=== PATIENT | female | born 1955 | race Caucasian/White ===

== ENCOUNTER 2022-10-31 09:06 | Emergency (ER) | payer MEDICARE, SELFPAY ==
--- NOTE | ~2022-10-31 | XR_ITS ---
Clinical Indication: Shortness of breath PA and lateral views of the chest: Comparison: 01/17/2010 Findings: Bidni-pu-etxgrxrl bilateral pleural effusions are present with probable mild bibasilar pulm onary edema/atelectasis.. Cardiomediastinal silhouette is within normal limits. Bones and soft tissu es are unremarkable. Impression: [id number] bilateral pleural effusions with mild bibasilar pulmonary edema/atelectasis. Reviewed, dictated and finalized at location M. NK ARCHITECT Impression: Qaosc-[id number] bilateral pleural effusions with mild bibasilar pulmonary ge[place] ma/atelectasis.
--- NOTE | 2022-10-31 09:16 | ED.URI ---
HPI - URI/Sore Throat General Chief Complaint: Upper Respiratory Infection Stated Complaint: sob Time Seen by Provider: 10/31/22 09:30 Source: patient and family Mode of arrival: ambulatory Limitations: no limitations History of Present Illness HPI Narrative: Ms. Roberts is a 67-year-old female patient presenting to clinic today with complaints of increased shortness of breath,cough, and swelling bilateral lower extremities x1 week. She denies any chest pain. Does have history of hyperthyroidism. No history of congestive heart failure or AFib. MD elicited complaint: sore throat and nasal congestion Related Data Home Medications Medication Instructions Recorded Confirmed amoxicillin 875 mg tablet 875 mg PO DIRECTED 10/31/22 10/31/22 Allergies Allergy/AdvReac Type Severity Reaction Status Date / Time estrogens, conjugated Allergy Unknown Other Verified 10/31/22 09:13 Review of Systems Review of Systems: Pertinent positives per HPI. Patient denies any fever, chills, rash, headache, visual changes, dizziness, cough, shortness of breath, chest pain, palpitations, nausea, vomiting, diarrhea, constipation, abdominal pain, or any urinary issues. PMFSH Past Medical History Medical History Essential hypertension Hyperthyroidism Type 2 diabetes mellitus with hyperglycemia Surgical History Surgical History No pertinent past surgical history Family History Family History (Updated 01/23/18 @ 14:55 by DOCTOR UNKNOWN) Father Hypertension Family history of malignant neoplasm Mother Hypertension Cerebrovascular accident Grandparent Family history of cardiovascular disease Other Family history of atrial fibrillation Family history of thyroid disease Social History Social History Smoking status: Never smoker Second hand tobacco smoke exposure: No Alcohol intake: never Comments At the time of my signature, I reviewed and agree with the nursing past medical, surgical, social, and family history. There is no relevant family history pertinent to the patient complaint. Exam Narrative: General: Well-developed, well nourished, ill-appearing, essential tremors Head: Normocephalic, atraumatic Eyes: Pupils equally round and reactive to light bilaterally, EOM intact, sclera and conjunctive clear, no discharge, lids normal Ears: TMs intact and clear, ear canals clear, no drainage, grossly hearing normal. Nose: Nares patent, clear nasal discharge, no inflammation, no sinus tenderness. Mouth: Oral pharynx without lesions or masses, good dentition, MMM. Neck: Supple, trachea midline, no enlargement of anterior or posterior cervical nodes, no thyroid masses or goiter palpable. Cardio: Regular rate and rhythm, s1 and s2 normal, no murmur appreciated. Resp: upper lung higuera are clear mid and lower lobes are diminished, no rhonchi, rales, wheezing or rubs Course Course Emergency Course: Portions of this record may have been created with voice recognition software. Level of Care: Express Care Visit Vital Signs Vital signs: Vital Signs Temperature 37.3 C 10/31/22 09:27 Pulse Rate 92 10/31/22 09:27 Respiratory Rate 20 10/31/22 09:27 Blood Pressure 170/116 H 10/31/22 09:27 Pulse Oximetry 100 10/31/22 09:27 Oxygen Delivery Room Air 10/31/22 09:27 Temperature 37.3 C 10/31/22 09:27 Pulse Rate 92 10/31/22 09:27 Respiratory Rate 20 10/31/22 09:27 Blood Pressure 160/98 H 10/31/22 10:15 Pulse Oximetry 100 10/31/22 09:27 Oxygen Delivery Room Air 10/31/22 09:27 Vital signs reviewed Transfer Transfered to: [facility] Transportation: [facility] Transfer rationale: acute new onset congestive heart failure and AFib with RVR Accepting physician: Yola Transfer comments: TRANSF
[2022-10-31 09:27] VITALS: BP 170/116; PULSE 92; RESP 20; TEMP 37.3; O2SAT 100
[2022-10-31 10:15] VITALS: BP 160/98
--- NOTE | 2022-10-31 10:42 | ECG_ITS ---
Measurements Intervals [place] Rate: 164 P: [place]: 0 QRS: -76 QRSD: 93 T: 93 QT: 258 QTc: 427 Interpretive Statements ATRIAL FIBRILLATION WITH RAPID VENTRICULAR RESPONSE MINIMAL VOLTAGE CRITERIA FOR LVH, CONSIDER NORMAL VARIANT [MEETS CRITERIA IN ONE OF: R(aVL), S(V1), R(V5), R(V5/V6)+S(V1)] SEPTAL MYOCARDIAL INFARCTION , OF INDETERMINATE AGE [40+ ms Q WAVE IN V1/V2] COMPARED TO ECG 10/31/2022 10:30:42 NO SIGNIFICANT CHANGES Electronically Signed On 10-31-2022 18:03:45 POLLS OR SURVEYS INTERVIEWER by Mesfin Cruz M.D.
== END 2022-10-31 10:46 | disposition short-term general hospital (02) ==
LOC: EXPCOLL 09:12
PROVIDERS: Emergency Provider Nurse Practitioner Family
DX: I48.91 Unspecified atrial fibrillation (principal); I50.9 Heart failure, unspecified; Z20.822 Contact with and (suspected) exposure to COVID-19; I11.0 Hypertensive heart disease with heart failure; E05.90 Thyrotoxicosis, unspecified without thyrotoxic crisis or storm; E11.9 Type 2 diabetes mellitus without complications
CPT/HCPCS: 71046; 87426; 93005; 99215; C9803; G0463

== ENCOUNTER 2022-10-31 11:03 | Inpatient (IN) | payer MEDICARE, SELFPAY ==
[2022-10-31] VITALS (20 sets, daily range): BP systolic 113–178; BP diastolic 80–108; PULSE 110–170; RESP 16–27; TEMP 36.9; O2SAT 95–99
--- NOTE | ~2022-10-31 | US_ITS ---
EXAMINATION: US venous doppler [facility] DATE: 11/01/2022 10:12 INDICATION: Lower limb edema. TECHNIQUE: Grayscale ultrasound images without and with compression and Doppler ultrasound images of the bilateral lower extremity veins were obtained. COMPARISON: None. FINDINGS: The visualized portions of right common femoral vein, profunda (deep) femoral vein, femoral vein, pop liteal vein, posterior tibial veins, and greater saphenous vein outflow are patent. The visualized portions of left common femoral vein, profunda femoral vein, femoral vein, popliteal v ein, posterior tibial veins, and greater saphenous vein outflow are patent. IMPRESSION: 1. No deep venous thrombosis. Reviewed, dictated and finalized at location A. PROJECTOR OPERATOR
--- NOTE | ~2022-10-31 | CT_ITS ---
EXAMINATION: CTA chest PE protocol DATE: 10/31/2022 16:09 INDICATION: Shortness of breath, atrial fibrillation TECHNIQUE: Computed tomography angiography (CTA) of the chest was performed with 100 mL Omnipaque-350 intravenous contrast timed to evaluate the pulmonary arteries. Coronal maximum intensity projection 3D-reconstructions were created by the technologist. The dose-length product (DLP) was 130.33 mGy-cm. Automated exposure control and iterative reconstruction technique were employed. COMPARISON: None. FINDINGS: The pulmonary arteries are well-opacified. No pulmonary embolism is identified. Cardiomegal y is noted. There are small to moderate-sized right and small left pleural effusions. There is mild p assive dependent atelectasis. There are no pathologically enlarged thoracic lymph nodes. There is mul tinodular goiter of the thyroid. There is moderate thoracic spondylosis. IMPRESSION: 1. No pulmonary embolism identified. 2. Small to moderate size right and small left pleural effusions with passive dependent atelectasis. Reviewed, dictated and finalized at location F. OF IT IMPRESSION: 1. No pulmonary embolism identified. 2. Small to moderate size right and small left pleural effusions with passive d ependent atelectasis.
--- NOTE | ~2022-10-31 | US_ITS ---
EXAMINATION: US abdomen limited DATE: 11/01/2022 10:03 INDICATION: Abnormal liver function tests. TECHNIQUE: Multiple grayscale and Doppler ultrasound images of the abdomen were obtained. COMPARISON: CT abdomen 12/26/2017, chest CT 10/31/2022 FINDINGS: The visualized portions of the head and body of the pancreas are normal. The liver is mai l without focal lesion. There is normal flow in main portal vein. The gallbladder is normal in size. No gallstones or gallbladder wall thickening. There was no sonographic Olmos sign. The common duct i s normal and measures 1 mm. There is a right pleural effusion. IMPRESSION: 1. No etiology for abnormal liver function tests. 2. Right pleural effusion. Reviewed, dictated and finalized at location A. TER SEISMOGRAPH
--- NOTE | ~2022-10-31 | XR_ITS ---
Clinical Indication: Dyspnea AP and lateral views of the chest: Comparison: 10/31/2022 at 9:59 AM Findings: Bilateral pleural effusions are unchanged. Cardiomediastinal silhouette is within normal l imits. Bones and soft tissues are unremarkable. Impression: Stable bilateral pleural effusions, with probable bibasilar atelectasis. Reviewed, dictated and finalized at location . GER METROLOGY Impression: Stable bilateral pleural effusions, with probable bibasilar atelectasis.
--- NOTE | ~2022-10-31 | XR_ITS ---
EXAMINATION: XR chest 1V portable Exam Date/Time: 11/03/2022 10:40 LINK WIRE FABRIC MACHINE OPERATOR HISTORY: sob Comparison: 10/31/2022. RESULT: Lines, tubes, and devices: None. Lungs and pleura: Increased consolidation in the bilateral lower lungs. Apparent air bronchograms in the right lower lobe. Increased right and stable left costophrenic angle blunting. Cardiomediastinal silhouette: Stable. Other: No acute osseous or upper abdominal finding. IMPRESSION: Increasing bibasilar atelectasis/consolidation. Possible right lower lobe air bronchograms would be m ore consistent with the consolidation of infection rather than atelectasis. Increasing but still smal l right pleural effusion. Stable small left pleural effusion. Reviewed, dictated and finalized at location K. WIRE FABRIC MACHINE OPERATOR IMPRESSION: Increasing bibasilar atelectasis/consolidation. Possible right lower lobe air b ronchograms would be more consistent with the consolidation of infection rather than atelectasis. Increasing but still small right pleural effusion. Stable sm all left pleural effusion.
--- NOTE | ~2022-10-31 | XR_ITS ---
EXAMINATION: XR chest 1V portable DATE: 11/04/2022 13:25 INDICATION: Shortness of breath TECHNIQUE: frontal view of the chest was obtained. COMPARISON: Chest radiograph dated 11/03/2022 FINDINGS: Again seen are opacities in the bilateral lower lung zones consistent with small bilateral pleural ef fusions and associated basilar atelectasis and/or pneumonia. The right pleural effusion appears sligh tly increased in size since the prior study. No pneumothorax. Cardiomegaly. Mild thoracolumbar dextro curvature with mild spondylosis. IMPRESSION: 1. Small bilateral pleural effusions with interval increase in the right and associated bibasilar ate lectasis and/or pneumonia. Reviewed, dictated and finalized at location A. MS EXAMINER IMPRESSION: 1. Small bilateral pleural effusions with interval increase in the right and as sociated bibasilar atelectasis and/or pneumonia.
--- NOTE | ~2022-10-31 | US_ITS ---
EXAMINATION: US thyroid DATE: 11/03/2022 14:18 INDICATION: Hyperthyroidism TECHNIQUE: Multiple ultrasound images of the thyroid were obtained. COMPARISON: None. FINDINGS: The right thyroid lobe measures 3.4 x 2.2 x 1.6 cm. The left thyroid lobe measures 3.2 x 1.9 x 1.7 c m. There are multiple bilateral hypoechoic solid almost completely solid thyroid nodules which are al l wider than tall with smooth margins and with multiple internal punctate echogenic foci (TI-RADS 5, highly suspicious , FNA if >=1.0 cm, annual followup is >0.5 cm. These include a 1.7 cm nodule in the right thyroid lobe, a 2.1 cm nodule at the left side of the thyroid isthmus and a 2.6 cm nodule in t he left thyroid lobe. Of note several of the echogenic foci which are either slightly larger or locat ed within the cystic components of the lesion demonstrate comet tailing suggestive of inspissated col loid. IMPRESSION: 1. Multinodular goiter. Given the nearly identical appearance to the nodules would recommend ultrasou nd-guided biopsy of the largest 2.6 cm nodule in the left thyroid lobe. Reviewed, dictated and finalized at location A. Y STAINER IMPRESSION: 1. Multinodular goiter. Given the nearly identical appearance to the nodules wo uld recommend ultrasound-guided biopsy of the largest 2.6 cm nodule in the left thyroid lobe.
--- NOTE | 2022-10-31 13:28 | ECG_ITS ---
Measurements Intervals [place] Rate: 168 P: [place]: 0 QRS: -35 QRSD: 90 T: 64 QT: 248 QTc: 415 Interpretive Statements ATRIAL FIBRILLATION WITH RAPID VENTRICULAR RESPONSE WITH ABERRANT CONDUCTION OR VENTRICULAR PREMATURE COMPLEXES MARKED LEFT AXIS DEVIATION [QRS AXIS < -30] SEPTAL MYOCARDIAL INFARCTION [40+ ms Q WAVE IN V1/V2], PROBABLY OLD NO PREVIOUS ECG AVAILABLE FOR COMPARISON Electronically Signed On 10-31-2022 17:57:19 SPORTING GOODS SALES ASSOCIATE by Mesfin Cruz M.D.
[2022-10-31 14:28] LABS: Hematocrit 49.8 % (37.0-47.0); Hemoglobin 16.1 g/dL (12.0-15.0); Mean Corpuscular HGB Conc 32.3 g/dl (32-36); Mean Corpuscular Volume 86.6 fl (80-100); Platelet Count Result 373 k/mm3 (150-375); Red Blood Count 5.75 M/mm3 (4.2-5.4); Red Cell Distribution Width 13.6 % (11.5-14.5); White Blood Count 12.1 K/mm3 (4.5-10.0)
[2022-10-31 14:29] LABS: Basophils Percent Auto 0.3 % (0.2-1.2); Eosinophils Percent Auto 0.1 % (0-4.4); Immature Granulocyte Absolute 0.07 K/mm3 (0.00-0.031); Immature Granulocyte Percent A 0.6 % (0-0.5); Lymphocytes Absolute Auto 1.96 K/mm3 (0.9-3.2); Lymphocytes Percent Auto 16.2 % (18.3-44.2); Mean Platelet Volume 10.3 fl (7.4-10.4); Monocytes Absolute Auto 0.6 K/mm3 (0.1-0.6); Monocytes Percent Auto 4.6 % (2.6-8.5); Neutrophils Absolute Auto 9.5 K/mm3 (1.3-6.7); Neutrophils Percent Auto 78.2 % (45.5-73.1)
--- NOTE | 2022-10-31 14:30 | ED.SOB ---
HPI - SOB/Dyspnea General Chief Complaint: Shortness of Breath/Dyspnea <Svetlana Peguero PA-C - Last Filed: 10/31/22 18:12> Stated Complaint: sob <NASIMA Beck Last Filed: 10/31/22 18:12> Time Seen by Provider: 10/31/22 14:29 <NASIMA Beck Last Filed: 10/31/22 18:12> Source: patient and old records reviewed <NASIMA Beck Last Filed: 10/31/22 18:12> Mode of arrival: ambulatory <NASIMA Beck Last Filed: 10/31/22 18:12> Limitations: no limitations <NASIMA Beck Last Filed: 10/31/22 18:12> History of Present Illness HPI Narrative: Patient is a 67 y/o female who presents to the ED via EMS from with report of SOB. Patient reports having worsening shortness of breath, aggravated with exertion, over the last 1 week. She has also had increased swelling in her lower extremities, which is new for her. She went to an urgent care today where she was thought to be in CHF based on chest x-ray showing pulmonary edema. She was also found to be in A. fib with RVR with heart rate in the 160s. EMS was then called to bring the patient here. Patient denies previous history of CHF or A. fib. She denies any chest pain currently or over the last week. Denies any palpitations, abdominal pain, nausea, vomiting, recent cough or cold symptoms, BLE pain. Patient does not currently take any daily medications. <NASIMA Beck Last Filed: 10/31/22 18:12> Related Data Home Medications: Home Medications Medication Instructions Recorded Confirmed amoxicillin 875 mg tablet 875 mg PO DIRECTED 10/31/22 10/31/22 <NASIMA Beck Last Filed: 10/31/22 18:12> Allergies/Adverse Reactions: Allergies Allergy/AdvReac Type Severity Reaction Status Date / Time estrogens, conjugated Allergy Unknown Other Verified 10/31/22 09:13 <Svetlana Peguero PA-C - Last Filed: 10/31/22 18:12> Review of Systems Review of Systems: CONSTITUTIONAL: Denies fever, chills, or sweats. ENT: Denies rhinorrhea, congestion, sore throat. CARDIOVASCULAR: Reports BLE edema. Denies chest pain, palpitations. RESPIRATORY: Reports SOB, OROPEZA. Denies cough. GASTROINTESTINAL: Denies abdominal pain, nausea, vomiting. MUSCULOSKELETAL: Denies BLE pain. NEUROLOGIC: Denies headache, numbness, or weakness. <Svetlana Peguero PA-C - Last Filed: 10/31/22 18:12> All systems reviewed & are unremarkable except as noted in HPI and below <Svetlana Peguero PA-C - Last Filed: 10/31/22 18:12> [facility] Past Medical History Medical History: Medical History Essential hypertension Hyperthyroidism Type 2 diabetes mellitus with hyperglycemia <Svetlana Peguero PA-C - Last Filed: 10/31/22 18:12> Surgical History Surgical History: Surgical History No pertinent past surgical history <Svetlana Peguero PA-C - Last Filed: 10/31/22 18:12> Family History Family History: Family History (Updated 01/23/18 @ 14:55 by DOCTOR UNKNOWN) Father Hypertension Family history of malignant neoplasm Mother Hypertension Cerebrovascular accident Grandparent Family history of cardiovascular disease Other Family history of atrial fibrillation Family history of thyroid disease <Svetlana Peguero PA-C - Last Filed: 10/31/22 18:12> Social History Social History: Social History Smoking status: Never smoker Second hand tobacco smoke exposure: No Alcohol intake: never <Svetlana Peguero PA-C - Last Filed: 10/31/22 18:12> Exam Narrative: GENERAL: Mildly ill appearing, thin, non-toxic, in no acute distress. HEAD: Normocephalic, atraumatic. NECK: Supple. No adenopathy, no masses. RESPIRATORY: Airway patent, resp
[2022-10-31 14:39] LABS: Alanine Aminotransferase 70 U/L (6-35); Albumin Level 4.2 g/dL (3.5-5.1); Alkaline Phosphatase 311 U/L (38-126); Anion Gap 16 mmol/L (8-16); Aspartate Amino Transferase 46 U/L (14-36); Bilirubin,Total 0.9 mg/dL (0.2-1.3); Blood Urea Nitrogen 13 mg/dL (7-17); Calcium 9.2 mg/dL (8.4-10.2); Carbon Dioxide 19 mmol/L (22-30); Chloride 95 mmol/L (98-107); Estimated CRCL calculation 103 ml/min; Estimated Glomerular Filt Rate > 60; Glucose 397 mg/dL (65-110); Potassium 3.5 mmol/L (3.4-5.0); Sodium 130 mmol/L (137-145)
[2022-10-31] MEDS: METOPROLOL TARTRATE INJ 5 MG/5 ML VIAL IV PUSH (14:57)
[2022-10-31 15:36] LABS: Prothrombin Time 12.8 Seconds (11.1-14.7)
[2022-10-31 15:36] LABS: Influenza A QL RT-PCR Negative (Negative); Influenza B QL RT-PCR Negative (Negative); SARS-CoV-2 RNA PCR Negative
[2022-10-31 15:37] LABS: NT Pro B Type Natriuretic Pept 676 pg/mL (5-100); Partial Thromboplastin Time 27.2 SECONDS (22.3-36.8); Troponin I 0.031 ng/mL (0.000-0.034)
[2022-10-31 15:41] LABS: Add Urine Microscopic? YES; Appearance Urine Clear (Clear); Bilirubin Urine Negative (Negative); Blood Urine Negative (Negative); Color Urine Light Yellow (Yellow); Glucose Urine UA 3+ mg/dL (Negative); Ketones Urine 3+ mg/dL (Negative); Leukocyte Esterase Ur Negative LEU/UL (Negative); Nitrate Urine Negative (Negative); Protein Urine 1+ mg/dL (Negative); Specific Grav Ur 1.015 (1.001-1.035); Urobilinogen Urine 0.2 mg/dL (<2.0)
[2022-10-31] MEDS: dilTIAZem HCl INJ 25 MG/5 ML VIAL 10 MG IV PUSH (15:44)
--- NOTE | 2022-10-31 15:48 | ECG_ITS ---
Measurements Intervals [place] Rate: 79 P: [place]: 0 QRS: -35 QRSD: 110 T: 55 QT: 376 QTc: 432 Interpretive Statements ATRIAL FIBRILLATION MARKED LEFT AXIS DEVIATION [QRS AXIS < -30] POSSIBLE ANTERIOR MYOCARDIAL INFARCTION , OF INDETERMINATE AGE [30 ms Q WAVE IN V3/V4, OR R < 0.2 mV IN V4] COMPARED TO ECG 10/31/2022 14:12:33 HEART RATE HAS DECREASED Electronically Signed On 10-31-2022 18:14:51 TRANSMISSION SUPERVISOR by Mesfin Cruz M.D.
[2022-10-31 15:52] LABS: Bacteria Urine Trace /hpf; RBC Urine 0-2 /hpf (0-2); Squamous Epithelial Cell Urine Rare /hpf (Few); WBC Urine 0-3 /hpf
[2022-10-31] MEDS: dilTIAZem 100 MG/100 ML 100 MG/100 ML BAG IV CONT (16:57)
[2022-10-31 18:06] LABS: Troponin I 0.036 ng/mL (0.000-0.034)
[2022-10-31] MEDS: FUROSEMIDE INJ 40 MG/4 ML VIAL IV PUSH (18:18)
[2022-10-31 18:31] LABS: Hemoglobin A1C > 14.0 % (<5.7)
--- NOTE | 2022-10-31 20:16 | PM.IMHP ---
H&P: HPI History of Present Illness Date/Time: 10/31/22 20:16 Chief Complaint: Shortness of breath Narrative: This is a 67-year-old female patient who went to urgent care today because of shortness of breath. It is aggravated with exertion and this has been occurring over the last week. She also had increased swelling to her lower extremities. Which is new for her. The patient was sent to the urgent care today when she thought it to be based on her chest x-ray showing pulmonary edema. The patient was found to be in AFib with RVR with heart rate in the 160s. EMS was then called the patient was brought here to the emergency room. She denies any history of CHF for AFib. The patient denied any chest pain. She has not had any palpitations abdominal pain nausea vomiting. The patient does not take any medications. The patient does have a history of having hyperthyroidism but is no longer taking her medication. Chest CTA was read as no pulmonary embolism identified. Small to moderate size right and small left pleural effusion with passive dependent atelectasis. The patient was found to be in AFib with RVR. The patient was given metoprolol IV and then Cardizem IV and IV Lasix. Patient's hemoglobin A1c was found to be greater than 14. Her blood sugars 397. Liver enzymes are elevated. Troponin 0.03 , 0.036, and 0.033. Then she was started on a Cardizem drip. The patient is being admitted to observation status on the date of service of 10/31/2022. Review of Systems Review of Systems: See HPI All systems reviewed & are unremarkable except as noted in HPI and below Constitutional: Constitutional: Reports as per HPI and Reports no additional constitutional complaints Eyes: Eyes: Reports as per HPI and Reports no additional eye complaints ENT: Reports system reviewed and no additional complaints, except as documented and Reports Normal hearing present Cardiovascular: Cardiovascular: Reports no additional cardiovascular complaints Respiratory: Respiratory: Reports no additional respiratory complaints and Reports no additional respiratory complaints Gastrointestinal: Gastrointestinal: Reports as per HPI and Reports no additional gastrointestinal complaints Musculoskeletal: Musculoskeletal: Reports no additional musculoskeletal complaints Integumentary/Breasts: Skin/Breast: Reports system reviewed and no additional complaints, except as docu and Reports as per HPI Neurologic: Reports system reviewed and no additional complaints, except as documented, Reports as per HPI and Reports Normal hearing present Psychiatric: Psychiatric: Reports no additional psychiatric complaints and Reports as per HPI Endocrine: Endocrine: Reports no additional endocrine complaints Hematologic/Lymphatic: Hematologic/Lymphatic: Reports no additional hematologic/lymphatic complaints Allergic/Immunologic: Allergic/Immunologic: Reports no additional allergic/immunologic complaints [facility] Past Medical History Medical History (Updated 10/31/22 @ 19:17 by Ascencion Cotton APRN) Essential hypertension Hyperthyroidism Type 2 diabetes mellitus with hyperglycemia Surgical History Surgical History (Updated 10/31/22 @ 23:36 by Zuleyka Cooley NP) History of dental surgery History of tonsillectomy Family History Family History Father Hypertension Family history of malignant neoplasm Mother Hypertension Cerebrovascular accident Grandparent Family history of cardiovascular disease Other Family history of atrial fibrillation Family history of thyroid disease Social History Social History (Updated 10/31/22 @ 23:33 by Zuleyka Cooley NP) Social History: The patient lives with her and they have one child. 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 She is a lifelong nonsmoker. She denies any alcohol marijuana or illicit drugs. Her is a durable power aligner for healthcare. Code s
[2022-10-31 23:00] LABS: Troponin I 0.033 ng/mL (0.000-0.034)
[2022-11-01] VITALS (27 sets, daily range): BP systolic 73–158; BP diastolic 58–95; PULSE 81–138; RESP 16–35; TEMP 36.1–36.7; O2SAT 95–100; BMI 18.1
[2022-11-01] MEDS: ENOXAPARIN 60 MG/0.6 ML SYRINGE 50 MG SUB-Q ×2 (00:33→09:49)
--- NOTE | 2022-11-01 02:26 | ADMGEN ---
This patient, Zeferino Roberts, was admitted to IMU Room 209-01. Patient/family oriented to hospital policies and general routines including ID bracelet, bed and alarms, visiting hours, pain management, procedures, bathroom and other care routines, personal items, smoking policy, room service/diet, and visiting hours. Information on how to activate the Rapid Response Team has been discussed. Patient/Family are encouraged to report perceived risks to care and to ask questions if they do not understand what they are told or what they should do.
[2022-11-01 02:57] LABS: Hepatitis B Surface Antigen Negative (Negative)
[2022-11-01 03:03] LABS: HAV RESULT Negative (Negative); Hepatitis B Core IgM Result Negative (Negative)
[2022-11-01 03:15] LABS: Hepatitis C Virus Antibody Negative (Negative)
[2022-11-01] MEDS: dilTIAZem HCl INJ 25 MG/5 ML VIAL 10 MG IV PUSH (04:18)
[2022-11-01] MEDS: dilTIAZem 100 MG/100 ML 100 MG/100 ML BAG 10 MG IV CONT (04:19)
[2022-11-01 04:39] LABS: Basophils Percent Auto 0.4 % (0.2-1.2); Eosinophils Percent Auto 0.1 % (0-4.4); Hematocrit 43.8 % (37.0-47.0); Hemoglobin 14.2 g/dL (12.0-15.0); Immature Granulocyte Absolute 0.07 K/mm3 (0.00-0.031); Immature Granulocyte Percent A 0.6 % (0-0.5); Lymphocytes Absolute Auto 2.25 K/mm3 (0.9-3.2); Lymphocytes Percent Auto 19.9 % (18.3-44.2); Mean Corpuscular HGB Conc 32.4 g/dl (32-36); Mean Corpuscular Hemoglobin 27.6 pg (26-34); Mean Platelet Volume 10.7 fl (7.4-10.4); Monocytes Absolute Auto 0.8 K/mm3 (0.1-0.6); Monocytes Percent Auto 7.4 % (2.6-8.5); Neutrophils Absolute Auto 8.1 K/mm3 (1.3-6.7); Neutrophils Percent Auto 71.6 % (45.5-73.1); Platelet Count Result 349 k/mm3 (150-375); Red Blood Count 5.15 M/mm3 (4.2-5.4); Red Cell Distribution Width 13.5 % (11.5-14.5); White Blood Count 11.3 K/mm3 (4.5-10.0)
[2022-11-01 04:54] LABS: Magnesium 1.5 mg/dL (1.6-2.3); Phosphorus 4.6 mg/dL (2.5-4.5)
[2022-11-01 05:28] LABS: Thyroid Stimulating Hormone Reflex < 0.015 uIU/mL (0.465-4.68)
[2022-11-01 06:00] LABS: Free T4 Free Thyroxine Reflex 3.49 ng/dL (0.78-2.19)
--- NOTE | 2022-11-01 06:00 | ECHO_ITS ---
Patient Info Name: Zeferion Roberts Age: 67 years : 1955 Gender: Female Ht: 60 in Wt: 105 lbs BSA: 1.42 m2 HR: 76 bpm BP: 73 / 58 mmHg Heart Rhythm: Atrial Fibrillation Technical Quality: Good Exam Date: 11/01/2022 2:42 PM Exam Location: [facility] Pulmonary Exam Room: 209 Patient Status: Inpatient Admit Date: 11/01/2022 Staff Ordering Physician: Svetlana Peguero PA-C Bargain Table Clerk: Elena Lauren RDCS Attending Provider: Erick Benítez MD Referring Physician: Sudhir PAGAN; Exam Type: CA echo doppler color flow Study Info Indications - new onset afib chf Complete two-dimensional, color flow and Doppler transthoracic echocardiogram is performed. Summary 1. Complete two-dimensional, color flow and Doppler transthoracic echocardiogram is performed. 2. Left ventricular chamber dimension is normal. 3. Left ventricular systolic function is severely reduced, estimated at 15-20%. 4. There is moderately increased left ventricular wall thickness. 5. The left ventricular diastolic function is indeterminate. 6. Left atrial chamber dimension is mildly enlarged. 7. Right atrial chamber dimension is mildly enlarged. 8. There is mild to moderate mitral valve regurgitation. 9. There is mild tricuspid valve regurgitation. 10. There is mild pulmonic regurgitation. Left Ventricle Left ventricular chamber dimension is normal. Left ventricular systolic function is severely reduced, estimated at 15-20%. There is moderately increased left ventricular wall thickness. The left ventricular diastolic function is indeterminate. Right Ventricle Right ventricular chamber dimension is normal. Right ventricular systolic function is reduced. Left Atria Left atrial chamber dimension is mildly enlarged. Right Atria Right atrial chamber dimension is mildly enlarged. Atrial Septum Intact interatrial septum visualized by color flow imaging. Aortic Valve The aortic valve is trileaflet. There is mild aortic valve sclerosis. There is no aortic valve stenosis. There is trace aortic valve regurgitation. Pulmonic Valve The pulmonic valve is normal. There is no pulmonic valve stenosis. There is mild pulmonic regurgitation. Mitral Valve The mitral valve has normal leaflets. There is no mitral valve stenosis. There is mild to moderate mitral valve regurgitation. Tricuspid Valve The tricuspid valve leaflets are normal. There is no significant tricuspid valve stenosis. There is mild tricuspid valve regurgitation. No pulmonary hypertension, estimated pulmonary arterial systolic pressure is 26 mmHg. Pericardium/Pleural The pericardium appears normal. There is no pericardial effusion. Inferior Vena Cava Dilated inferior vena cava with <50% collapse upon inspiration consistent with elevated right atrial pressure, 15 mmHg. Aorta The aortic root size at the sinus of Valsalva is normal. The prox ascending aorta size is normal. Left Ventricular Outflow Tract Name Value Normal LVOT 2D LVOT Diameter 1.8 cm LVOT Doppler LVOT Peak Gradient 3 mmHg
--- NOTE | 2022-11-01 08:00 | PC.NURSE ---
Notified Dr. Jansen that patient's blood glucose this AM was 544. MD will add some Lantus and change some orders. New order for 12u NovoLog SQ x1 now.
[2022-11-01 08:29] LABS: Glucose Point of Care > 500 mg/dl (65-105)
[2022-11-01] MEDS: INSULIN ASPART (*BKC) 100 UNITS/ML 12 UNITS SUB-Q (08:57)
[2022-11-01] MEDS: INSULIN GLARGINE (*BKC) 100 UNITS/ML 14 UNITS SUB-Q ×2 (09:00→20:34)
--- NOTE | 2022-11-01 09:05 | PM.IMPN ---
Progress Note: A&P Assessment and Plan (1) Atrial fibrillation with rapid ventricular response: Code(s): I48.91 - Unspecified atrial fibrillation Status: Inactive Assessment and Plan: New onset AFib with RVR likely secondary to uncontrolled hyperthyroidism, thyroid storm Will discontinue calcium channel maribel in favor of a beta-maribel in hopes of reducing T3 concentration Propranolol started at 40 mg q.6 hours, will titrate up to achieve a heart rate of less than 90 while monitoring blood pressure to confirm adequate perfusion (2) Congestive heart failure: Qualifiers: Heart failure chronicity: acute Heart failure type: unspecified Qualified Code(s): I50.9 - Heart failure, unspecified Code(s): I50.9 - Heart failure, unspecified Status: Inactive Assessment and Plan: Cardiology consultation and echo pending, continue IV Lasix, monitor potassium while on IV diuresis (3) Hyperthyroidism: Code(s): E05.90 - Thyrotoxicosis, unspecified without thyrotoxic crisis or storm Status: Acute Assessment and Plan: History of hyperthyroidism, TSH undetectable, T4 and T3 pending Will initiate methimazole 20 mg q.6 hours Patient will need outpatient Endocrinology consultation and ultimate ablation of her thyroid (4) Type 2 diabetes mellitus with hyperglycemia: Qualifiers: Diabetes mellitus detention insulin use: unspecified continuous churn buttermaker insulin use status Qualified Code(s): E11.65 - Type 2 diabetes mellitus with hyperglycemia Code(s): E11.65 - Type 2 diabetes mellitus with hyperglycemia Status: Acute Assessment and Plan: New onset diabetes with A1c greater than 14 Diabetic Education ordered, Lantus initiated, continue Accu-Cheks and sliding scale Although hyperthyroidism can cause hyperglycemia due to the catecholamine induced inhibition of insulin release, with an A1c of 14 there is a possibility of underlying diabetes exacerbated by thyroid storm Plan DVT prophylaxis with therapeutic Lovenox GI prophylaxis not indicated Code status full code Subjective Date/time seen: 11/01/22 09:05 Interval history: No overnight events noted. No chest pain or shortness of breath. No nausea, vomiting or diarrhea. No fevers or chills. Patient has noted palpitations, joint aches and pains that are migrating to different spots on her body, fatigue and weakness. She states she was diagnosed with hyperthyroidism, not Graves disease, years ago and was placed on methimazole for a while. However, she stabilized and did not like the side effects of the medications so she discontinued it. Over the last several years, she has had significant unintentional weight loss and a constellation of symptoms that she attributed to stress. Review of Systems Review of Systems: 12 point review of systems was assessed and was negative except as noted in the HPI Exam Narrative: General: No acute distress, alert and oriented per baseline, appears cachectic and chronically ill HEENT: Atraumatic, normocephalic, mucous membranes moist CV: Irregularly irregular, S1, S2 Lungs: Clear to auscultation bilaterally, no rales or crackles noted, no wheezes, good air entry Abdomen: Soft, nontender, nondistended Extremities: Normal to inspection Skin: No rashes noted, no lesions or wounds seen Psych: Euthymic, normal affect Objective Data Vital Signs Vital Signs: Vital Signs - 24 hr 10/31/22 14:08 10/31/22 14:22 10/31/22 14:41 Temperature 98.5 F Pulse Rate 110 H Respiratory Rate 16 Blood Pressure 152/93 H Pulse Oximetry 99 98 96 Oxygen Delivery 10/31/22 14:45 10/31/22 14:46 10/31/22 14:47 Temperature Pulse Rate 170 H Respiratory Rate Blood Pressure 139/108 H 148/101 H Pulse Oximetry 99 99 95 Oxygen Delivery 10/31/22 14:57 10/31/22 15:00 10/31/22 15:01 Temperature Pulse Rate 167 H 156 H 142 H Respiratory Rate 23 H 24 H Blood Pre
[2022-11-01 09:07] LABS: Total Triiodothyronine (T3) 1.33 NG/ML (0.97-1.69)
[2022-11-01 09:19] LABS: Potassium 3.4 mmol/L (3.4-5.0)
[2022-11-01 09:24] LABS: Anion Gap 19 mmol/L (8-16); Blood Urea Nitrogen 20 mg/dL (7-17); Calcium 9.1 mg/dL (8.4-10.2); Carbon Dioxide 14 mmol/L (22-30); Chloride 98 mmol/L (98-107); Estimated CRCL calculation 70 ml/min; Estimated Glomerular Filt Rate > 60; Glucose 505 mg/dL (65-110); Sodium 131 mmol/L (137-145)
[2022-11-01] MEDS: FUROSEMIDE INJ 40 MG/4 ML VIAL IV PUSH (09:49)
[2022-11-01 10:04] LABS: Glucose Point of Care 446 mg/dl (65-105)
--- NOTE | 2022-11-01 11:22 | PM.CNCAR ---
Assessment and Plan Assessment and plan (1) New onset atrial fibrillation: Code(s): I48.91 - Unspecified atrial fibrillation Status: Acute Assessment and Plan: New onset of atrial fibrillation likely secondary to hyperthyroidism. Hypothyroidism to be treated with methimazole. Propanolol will initially be utilized because of her hyperthyroid state. DC diltiazem especially given her heart failure. She has a chads Vasc score of 5 and anticoagulation is warranted. Talk to her about the risks benefits alternatives of different anticoagulants including warfarin as well as the direct oral anticoagulant. She is agreeable to Xarelto 20 mg p.o. daily. 2D echocardiogram with Doppler be ordered and reviewed. (2) Essential hypertension: Code(s): I10 - Essential (primary) hypertension Status: Acute Assessment and Plan: Propanolol to be started. Will also start losartan 25 mg p.o. daily and likely transition to Entresto depending on results of echocardiogram. (3) Hyperthyroidism: Code(s): E05.90 - Thyrotoxicosis, unspecified without thyrotoxic crisis or storm Status: Acute Assessment and Plan: As detailed above (4) Type 2 diabetes mellitus with hyperglycemia: Qualifiers: Diabetes mellitus mcc insulin use: unspecified mcc insulin use status Qualified Code(s): E11.65 - Type 2 diabetes mellitus with hyperglycemia Code(s): E11.65 - Type 2 diabetes mellitus with hyperglycemia Status: Acute (5) Electrolyte imbalance: Code(s): E87.8 - Other disorders of electrolyte and fluid balance, not elsewhere classified Status: Acute Assessment and Plan: 4 g of magnesium and 40 mEq of potassium chloride will be given x1 (6) Congestive heart failure: Code(s): I50.9 - Heart failure, unspecified Status: Acute Assessment and Plan: Acute onset of CHF likely secondary to either atrial fibrillation with rapid ventricular response plus/minus hyperthyroidism. Furosemide 20 mg IV q.12 hours. Intake and output, daily weights. Beta-maribel, ARB initiated. Consider Jardiance and spironolactone also depending on tolerance and need. Follow electrolytes. Low-salt diet. History of Present Illness History of Present Illness Consult date/time: 11/01/22 11:22 Requesting physician: Svetlana Peguero PA-C Consult reason: atrial fibrillation and congestive heart failure Reason For Visit: AFIB with RVR, new onset CHF Narrative: Date of service 11/01/2022 Reason for consultation, atrial fibrillation, CHF Requesting provider: Svetlana Peguero History: Patient is a 67-year-old female who has a history of hyperthyroidism. She has not been seen by endocrinology in several years and had been on methimazole in the past but has not taken them was also in several years. She also has not seen a primary care provider since prior to [facility]. She went to urgent care because of worsening shortness of breath and swelling. Shortness of breath became quite severe over the past week. Edema has also been present over the past several days. She has had orthopnea also been or paroxysmal nocturnal dyspnea. She has lost significant weight over the past year or so. She denies any chest pain, syncope or presyncope. She was found to be in heart failure, anasarca and in atrial fibrillation with rapid ventricular response. Further workup shows that her TSH is suppressed and her T4 level is elevated consistent with hyperthyroidism. Review of Systems Review of Systems: All systems reviewed & are unremarkable except as noted in HPI and below Constitutional: Constitutional: Reports weakness Eyes: Eyes: Denies blurry vision ENT: Reports Normal hearing present Cardiovascular: Cardiovascular: Denies chest pain and Denies lightheadedness Respiratory: Respiratory: Denies chest congestion and Reports dyspnea Gastrointestinal: Gastrointestinal: Denies abdominal
[2022-11-01 11:31] LABS: Glucose Point of Care 398 mg/dl (65-105)
--- NOTE | 2022-11-01 11:39 | PC.NURSE ---
Spoke with Dr. Jansen regarding patient's blood glucose. BG has trended down to 398 without administration of 15units of NovoLog. New order to treat per sliding scale and recheck one hour after eating
[2022-11-01] MEDS: POTASSIUM CHLORIDE 20 MEQ TABLET 40 MEQ PO (12:34)
[2022-11-01] MEDS: POTASSIUM CHLORIDE 20 MEQ PACKET (FOR LIQUID) PO (12:35)
[2022-11-01] MEDS: PROPRANOLOL HCL 40 MG TABLET PO (12:35)
[2022-11-01] MEDS: INSULIN ASPART (*BKC) 100 UNITS/ML SUB-Q (12:35)
[2022-11-01] MEDS: methiMAzole 10 MG TAB 20 MG PO ×3 (12:35→23:55)
[2022-11-01] MEDS: AMPICILLIN SULB 3 GM/NS 100 ML 3 GM/100 ML VIAL IVPB ×3 (12:42→23:55)
[2022-11-01] MEDS: MAGNESIUM SULF 4 GM/WATER100ML 4 GM/100 ML BAG IVPB (12:42)
[2022-11-01 14:22] LABS: Glucose Point of Care 401 mg/dl (65-105)
[2022-11-01] MEDS: SODIUM CHLORIDE 0.9% IV 1,000 ML 999 ML IV CONT (14:24)
--- NOTE | 2022-11-01 14:31 | PC.NURSE ---
Pt's family called out that patient didn't appear to be breathing . This RN, another RN, and Tech enter room, to find patient hunched over the side of the bed, lethargic and slow to respond verbally. Blood glucose and blood pressure checked with results of: blood glucose of 401, blood pressure in left arm 74/58, blood pressure in right arm 75/60. Dr. Jansen notified of issue; new order of 1L NS bolus and recheck BP in 30 minutes. If BP returns to stable and patient is improving may stop bolus prematurely.
--- NOTE | 2022-11-01 16:28 | PC.NURSE ---
Spoke with Dr. Rajput regarding patient's soft BP. Patient has improved since bolus was given. Last BP 97/71. Pt remains on 2L NC but states my breathing does feel better. I don't feel that short of breath. New order to change Furosemide from 40mg IVP daily to 20mg IVP BID starting tomorrow AM (11/02).
[2022-11-01 17:00] LABS: Glucose Point of Care 424 mg/dl (65-105)
[2022-11-01] MEDS: LORazepam INJ (*CRX) 2 MG/ML VIAL 0.5 MG IV PUSH (17:18)
[2022-11-01] MEDS: RIVAROXABAN 20 MG TABLET PO (17:18)
[2022-11-01] MEDS: INSULIN ASPART (*BKC) 100 UNITS/ML 15 UNITS SUB-Q (17:19)
[2022-11-01 18:00] LABS: Glucose Point of Care 423 mg/dl (65-105)
--- NOTE | 2022-11-01 18:10 | PC.NURSE ---
Spoke with Dr. Jansen regarding change in patient alertness. Patient had received 0.5mg IVP Ativan for vomiting at 1720. Pt now more lethargic, arouses to light pain. A&O x 4 but doesn't sustain awareness. BP in L arm 87/67, R arm 90/53. BG of 423, 15units of NovoLog given at 1719 for a BG of 424. Other VS remain stable HR 93, O2 95% on RA. Continue to monitor. Change in condition suspected to be related to Ativan dose. If patient doesn't return to baseline in about an hour please do a stat head CT.
[2022-11-01 19:10] LABS: Glucose Point of Care 329 mg/dl (65-105)
--- NOTE | 2022-11-01 19:47 | PC.NURSE ---
Dr. Jansen notified of patient's BP remaining low. Left arm BP 86/62, Right arm BP 84/62. Dr. Jansen will call Dr. Zelaay and Dr. Mckeon (tube coater) and move patient to ICU. This patient, Zeferino Roberts, was transferred to [ICU-9] on 11/01/22 at 1945. Personal belongings sent with patient. Report given to [ KRISTI Rueda @ 1940]. Appropriate documentation sent with patient.
[2022-11-01] MEDS: hetaSTARCH 6%/NACL 500 ML 250 ML (19:55)
[2022-11-01 20:38] LABS: Glucose Point of Care 292 mg/dl (65-105)
[2022-11-01] MEDS: POTASSIUM CHLORIDE INJ 40 MEQ in SODIUM CHLORIDE 0.9% IV 500 ML 130 MEQ IVPB (21:33)
[2022-11-01 22:38] LABS: Alveolar/Arterial O2 Gradient 83.5 mmHg; Base Excess ABG -2.1 mEq/l (+/-2.0); Fractional Inspired Oxygen 28 %; HCO3 ABG 19.6 mEq/l (22.0-26.0); Oxygen Saturation ABG 97.2 % (95.0-100.0); Oxyhemoglobin 95.8 % THb (90.0-100.0); PCO2 ABG 26.4 mmHg (35.0-45.0); PO2 FiO2 Ratio Arterial Blood 3.04 %; Total Hemoglobin 14.8 g/dL (12.0-18.0); pH ABG 7.489 (7.350-7.450)
[2022-11-01 22:39] LABS: Device NASAL CANNULA; Site Drawn RIGHT BRACHIAL
[2022-11-02] VITALS (17 sets, daily range): BP systolic 99–121; BP diastolic 76–96; PULSE 112–140; RESP 21–35; TEMP 36.2–36.5; O2SAT 96–100
[2022-11-02] MEDS: PROPRANOLOL HCL 10 MG TABLET PO ×3 (00:02→09:00)
[2022-11-02] MEDS: LORazepam INJ (*CRX) 2 MG/ML VIAL 0.5 MG IV PUSH (02:49)
[2022-11-02 05:08] LABS: Basophils Absolute Auto 0.1 K/mm3 (0.0-0.1); Basophils Percent Auto 0.4 % (0.2-1.2); Eosinophils Percent Auto 0.2 % (0-4.4); Hematocrit 48.5 % (37.0-47.0); Hemoglobin 15.8 g/dL (12.0-15.0); Immature Granulocyte Absolute 0.06 K/mm3 (0.00-0.031); Immature Granulocyte Percent A 0.5 % (0-0.5); Lymphocytes Absolute Auto 3.84 K/mm3 (0.9-3.2); Lymphocytes Percent Auto 32.1 % (18.3-44.2); Mean Corpuscular HGB Conc 32.6 g/dl (32-36); Mean Corpuscular Hemoglobin 28.1 pg (26-34); Mean Corpuscular Volume 86.1 fl (80-100); Mean Platelet Volume 9.7 fl (7.4-10.4); Monocytes Percent Auto 8.3 % (2.6-8.5); Neutrophils Percent Auto 58.5 % (45.5-73.1); Nucleated Red Blood Cells Perc 0.2 % (0.0-0.2); Platelet Count Result 349 k/mm3 (150-375); Red Blood Count 5.63 M/mm3 (4.2-5.4)
[2022-11-02 05:20] LABS: Alanine Aminotransferase 138 U/L (6-35); Albumin Level 2.9 g/dL (3.5-5.1); Alkaline Phosphatase 303 U/L (38-126); Anion Gap 4 mmol/L (8-16); Aspartate Amino Transferase 189 U/L (14-36); Bilirubin,Total 1.1 mg/dL (0.2-1.3); Blood Urea Nitrogen 36 mg/dL (7-17); Calcium 8.6 mg/dL (8.4-10.2); Carbon Dioxide 24 mmol/L (22-30); Chloride 103 mmol/L (98-107); Estimated CRCL calculation 60 ml/min; Estimated Glomerular Filt Rate > 60; Glucose 61 mg/dL (65-110); Potassium 4.1 mmol/L (3.4-5.0); Sodium 131 mmol/L (137-145)
[2022-11-02] MEDS: AMPICILLIN SULB 3 GM/NS 100 ML 3 GM/100 ML VIAL IVPB ×4 (05:31→23:42)
[2022-11-02] MEDS: methiMAzole 10 MG TAB 20 MG PO ×4 (05:32→23:42)
[2022-11-02] MEDS: DEXTROSE 50% 25 GM/50 ML SYRINGE IV PUSH (05:52)
[2022-11-02 06:03] LABS: Glucose Point of Care 235 mg/dl (65-105)
[2022-11-02] MEDS: FUROSEMIDE INJ 40 MG/4 ML VIAL 20 MG IV PUSH ×2 (09:00→17:21)
[2022-11-02 10:23] LABS: Ammonia 18 umol/L (9-30)
--- NOTE | 2022-11-02 10:56 | PCNFU ---
Nutrition Follow-Up Complete: Unintended weight loss as related to hypothyroidism as evidenced by BMI: 18.2 Goal; Meet estimated nutritional needs Patient is progressing towards goal. We will continue current goal. Pt current nutrition is DBCC. Last recorded weight is 48.2 kg. Bowel Motility:+BM reported 11/01 Labs Reviewed:Glu 61, Cr 0.6,BUN 36, Na 131, Hct 48.5,Hgb 15.8 Meds Noted:Lantus, NovoLog, Lasix, Ativan. Skin: WNL Additional Notes: Patient transferred to ICU yesterday BP low. Patient remains on a diabetic diet. Oral Intake 10% this morning. Diet supplements remain on trays of Glucerna shakes providing an additional 220 kcals and 10 gms protein. Agree with diet orders. Monitoring: Will monitor every 7 days.
[2022-11-02 11:30] LABS: Glucose Point of Care 168 mg/dl (65-105)
--- NOTE | 2022-11-02 11:35 | WPDCNINT ---
Assessment and Plan Assessment and plan (1) Congestive heart failure: Code(s): I50.9 - Heart failure, unspecified Status: Acute Assessment and Plan: Echo showed Echocardiogram Summary ? 1. Complete two-dimensional, color flow and Doppler transthoracic echocardiogram is performed. ? 2. Left ventricular chamber dimension is normal. ? 3. Left ventricular systolic function is severely reduced, estimated at 15-20%. ? 4. There is moderately increased left ventricular wall thickness. ? 5. The left ventricular diastolic function is indeterminate. ? 6. Left atrial chamber dimension is mildly enlarged. ? 7. Right atrial chamber dimension is mildly enlarged. ? 8. There is mild to moderate mitral valve regurgitation. ? 9. There is mild tricuspid valve regurgitation. ? 10. There is mild pulmonic regurgitation. Cardiology following. Continue beta-maribel Losartan held due to low blood pressure Low does Lasix for volume overload (2) Atrial fibrillation with RVR: Code(s): I48.91 - Unspecified atrial fibrillation Status: Acute Assessment and Plan: Rate controlled improved with propranolol p.o. will be continue Xarelto anticoagulation (3) Type 2 diabetes mellitus with hyperglycemia: Qualifiers: Diabetes mellitus intermediate frame tender insulin use: unspecified intermediate frame tender insulin use status Qualified Code(s): E11.65 - Type 2 diabetes mellitus with hyperglycemia Code(s): E11.65 - Type 2 diabetes mellitus with hyperglycemia Status: Acute Assessment and Plan: Increase Lantus dose and increase sliding scale insulin dose Diabetic diet (4) Hyperthyroidism: Code(s): E05.90 - Thyrotoxicosis, unspecified without thyrotoxic crisis or storm Status: Acute Assessment and Plan: On propanolol and Tapazole Free T3 level pending (5) Essential hypertension: Code(s): I10 - Essential (primary) hypertension Status: Acute Assessment and Plan: Blood pressure now in acceptable range Patient on propanolol Cozaar held (6) Dental infection: Code(s): K04.7 - Periapical abscess without sinus Status: Acute Assessment and Plan: On Unasyn which will be continued Plan DVT prophylaxis -Xarelto Stress ulcer prophylaxis - Nutrition -cardiac diet Code Status - Full Code PT OT Incentive spirometry Transfer out of ICU Allergy Physician Consult Note Consult date: 11/02/22 Reason for consult: AFib with RVR, hyperthyroidism, congestive heart failure HPI: Zeferino Roberts is a 67 year old female with past medical history of hyperthyroidism, pre diabetes and hypertension who has not seen a physician in many years and has not taken any medication was admitted on 10/31 with shortness of. Patient was found to be having hyperthyroidism, congestive heart failure and AFib with RVR. Workup showed her HbA1c was 14 Chest CTA? 10/31/22 16:14 IMPRESSION: 1. No pulmonary embolism identified. 2. Small to moderate size right and small left pleural effusions with passive dependent atelectasis. Echocardiogram Summary ? 1. Complete two-dimensional, color flow and Doppler transthoracic echocardiogram is performed. ? 2. Left ventricular chamber dimension is normal. ? 3. Left ventricular systolic function is severely reduced, estimated at 15-20%. ? 4. There is moderately increased left ventricular wall thickness. ? 5. The left ventricular diastolic function is indeterminate. ? 6. Left atrial chamber dimension is mildly enlarged. ? 7. Right atrial chamber dimension is mildly enlarged. ? 8. There is mild to moderate mitral valve regurgitation. ? 9. There is mild tricuspid valve regurgitation. ? 10. There is mild pulmonic regurgitation. TSH was less than 0.015, T4 was elevated at 3.49, free T3 is pending and total T3 was normal Cardiology was consulted the patient was being managed on the floor. For AFib with RVR she was started on Cardizem infusion, insulin for diabetes diuretics for her
--- NOTE | 2022-11-02 12:49 | PM.PNCARD ---
Progress Note: A&P Assessment and Plan (1) Atrial fibrillation with RVR: Code(s): I48.91 - Unspecified atrial fibrillation Status: Acute Plan 67-year-old lady with chronic untreated hyperthyroidism presumably resulting in atrial fibrillation and tachycardia induced cardiomyopathy. Patient became hypotensive last evening and moved to the ICU. She is not volume overloaded at this time except for some mild lower extremity edema. Blood pressure is better so I will slowly advance her propranolol dosage. Losartan has been discontinued. If blood pressure permits later we will start some Entresto instead. Systemic anticoagulation in place as well. Hyperthyroidism is now being treated with methimazole. Prognosis is guarded in this patient who has become extremely cachectic because of all of this. Oleg Fermin MD [facility] Subjective Date/time seen: date of service:11/02/22 12:49 Interval history: Follow-up visit in this 67-year-old woman with: Chronic severe untreated hyperthyroidism resulting in atrial fibrillation RVR and cardiomyopathy. Patient moved to the ICU yesterday evening because of hypotension. ARB has been placed on hold. Blood pressure is better this afternoon Exam Const: General: comfortable and no acute distress Other: cachectic appearing white female answers questions no distress HENMT: Mouth: Yes moist mucous membranes Eyes: Sclera: sclerae normal Neck: Neck: supple and no JVD Resp: Effort & Inspection: normal respiratory effort Other: patient has basilar crackles no wheezing Cardio: Rate: tachycardic Rhythm: abnormal rhythm irregularly irregular GI: GI Palp: Yes Soft to palpation Auscultation: normal bowel sounds Skin: General skin exam: normal color Neuro: Other: alert and oriented x3 Extrem: Other: patient still has mild bipedal edema Objective Data Vital Signs Vital Signs: Vital Signs - 24 hr 11/01/22 14:18 11/01/22 14:18 11/01/22 14:44 Temperature Pulse Rate Respiratory Rate Blood Pressure 74/58 L 75/60 L 73/58 L Pulse Oximetry Oxygen Delivery Oxygen Flow Rate 11/01/22 14:57 11/01/22 15:09 11/01/22 16:05 Temperature Pulse Rate Respiratory Rate Blood Pressure 74/59 L 75/60 L 97/71 L Pulse Oximetry Oxygen Delivery Oxygen Flow Rate 11/01/22 16:00 11/01/22 14:20 11/01/22 16:00 Temperature 36.1 C L Pulse Rate 95 Respiratory Rate 16 Blood Pressure 97/71 L Pulse Oximetry 100 100 99 Oxygen Delivery Nasal Cannula Nasal Cannula Oxygen Flow Rate 2 2 11/01/22 14:00 11/01/22 16:00 11/01/22 18:00 Temperature Pulse Rate 86 81 95 Respiratory Rate Blood Pressure Pulse Oximetry Oxygen Delivery Oxygen Flow Rate 11/01/22 18:54 11/01/22 18:55 11/01/22 19:50 Temperature Pulse Rate 118 H Respiratory Rate 35 H Blood Pressure 84/62 L 86/62 L 86/72 L Pulse Oximetry 95 Oxygen Delivery Oxygen Flow Rate 11/01/22 20:00 11/01/22 20:00 11/01/22 20:18 Temperature 36.4 C Pulse Rate 107 H 107 H 106 H Respiratory Rate 32 H 32 H Blood Pressure 91/79 L 91/79 L Pulse Oximetry 98 98 Oxygen Delivery Nasal Cannula Oxygen Flow Rate 2 11/01/22 21:34 11/01/22 21:00 11/01/22 20:00 Temperature Pulse Rate 106 H 109 H 113 H Respiratory Rate 23 H Blood Pressure 94/76 L Pulse Oximetry 98 Oxygen Delivery Oxygen Flow Rate 11/01/22 22:00 11/01/22 22:00 11/02/22 00:02 Temperature Pulse Rate 113 H 113 H 125 H Respiratory Rate 16 Blood Pressure 98/84 L Pulse Oximetry 97 Oxygen Delivery Oxygen Flow Rate 11/02/22 00:00 11/02/22 00:00 11/02/22 00:00 Temperature 36.2 C L Pulse Rate 132 H 125 H 113 H Respiratory Rate 29 H 29 H Blood Pressure 112/83 Pulse Oximetry 98 98 Oxygen Delivery Nasal Cannula Oxygen Flow Rate 2 11/02/22 02:00 11/02/22 02:00 11/02/22 04:00 Temperature 36.3 C L Pulse Rate 1
[2022-11-02 17:18] LABS: Glucose Point of Care 216 mg/dl (65-105)
[2022-11-02] MEDS: INSULIN ASPART (*BKC) 100 UNITS/ML SUB-Q ×2 (17:21→20:43)
[2022-11-02] MEDS: PROPRANOLOL HCL 20 MG TABLET PO ×2 (17:22→20:43)
[2022-11-02] MEDS: RIVAROXABAN 20 MG TABLET PO (17:22)
[2022-11-02 20:40] LABS: Glucose Point of Care 296 mg/dl (65-105)
[2022-11-02] MEDS: INSULIN GLARGINE (*BKC) 100 UNITS/ML 20 UNITS SUB-Q (20:44)
[2022-11-03] VITALS (20 sets, daily range): BP systolic 91–133; BP diastolic 64–90; PULSE 99–144; RESP 16–32; TEMP 36.3–37.6; O2SAT 95–100
--- NOTE | 2022-11-03 00:57 | PC.NURSE ---
This patient, Zeferino Roberts, was transferred to [facility] on 11/03/22 at 0050. Personal belongings sent with patient. Report given to Amanda Thomas RN. Appropriate documentation sent with patient.
--- NOTE | 2022-11-03 01:09 | PC.NURSE ---
This patient, Zeferino Roberts, was received from ICU-9 to room 206-1 on 11/03/22 at 0052. Patient/family oriented to unit policies and routines.
[2022-11-03] MEDS: PROPRANOLOL HCL 20 MG TABLET PO ×2 (01:14→05:55)
[2022-11-03 05:44] LABS: Basophils Absolute Auto 0.1 K/mm3 (0.0-0.1); Basophils Percent Auto 0.3 % (0.2-1.2); Eosinophils Percent Auto 0.1 % (0-4.4); Hematocrit 45.8 % (37.0-47.0); Immature Granulocyte Absolute 0.13 K/mm3 (0.00-0.031); Immature Granulocyte Percent A 0.7 % (0-0.5); Lymphocytes Absolute Auto 2.27 K/mm3 (0.9-3.2); Lymphocytes Percent Auto 12.2 % (18.3-44.2); Mean Corpuscular HGB Conc 32.8 g/dl (32-36); Mean Corpuscular Hemoglobin 27.8 pg (26-34); Mean Platelet Volume 10.4 fl (7.4-10.4); Monocytes Absolute Auto 1.6 K/mm3 (0.1-0.6); Monocytes Percent Auto 8.4 % (2.6-8.5); Neutrophils Absolute Auto 14.6 K/mm3 (1.3-6.7); Neutrophils Percent Auto 78.3 % (45.5-73.1); Platelet Count Result 349 k/mm3 (150-375); Red Blood Count 5.39 M/mm3 (4.2-5.4); White Blood Count 18.7 K/mm3 (4.5-10.0)
[2022-11-03] MEDS: methiMAzole 10 MG TAB 20 MG PO ×5 (05:56→21:21)
[2022-11-03] MEDS: AMPICILLIN SULB 3 GM/NS 100 ML 3 GM/100 ML VIAL IVPB ×3 (05:56→17:14)
[2022-11-03 05:57] LABS: Alanine Aminotransferase 285 U/L (6-35); Albumin Level 2.9 g/dL (3.5-5.1); Alkaline Phosphatase 310 U/L (38-126); Anion Gap 5 mmol/L (8-16); Aspartate Amino Transferase 281 U/L (14-36); Bilirubin,Total 1.1 mg/dL (0.2-1.3); Blood Urea Nitrogen 46 mg/dL (7-17); Calcium 8.6 mg/dL (8.4-10.2); Carbon Dioxide 25 mmol/L (22-30); Chloride 104 mmol/L (98-107); Estimated CRCL calculation 70 ml/min; Estimated Glomerular Filt Rate > 60; Glucose 199 mg/dL (65-110); Potassium 3.9 mmol/L (3.4-5.0); Sodium 134 mmol/L (137-145)
[2022-11-03 07:59] LABS: Glucose Point of Care 201 mg/dl (65-105)
--- NOTE | 2022-11-03 08:57 | PM.IMPN ---
Progress Note: A&P Assessment and Plan (1) Leukocytosis: Code(s): D72.829 - Elevated white blood cell count, unspecified Status: Acute Assessment and Plan: Due to patient's deterioration, vancomycin, Zosyn and azithromycin were initiated for possible pneumonia Unsure of etiology of significant leukocytosis, follow-up cultures, continue antibiotics for now, do not actually suspect underlying infection (2) Atrial fibrillation with rapid ventricular response: Code(s): I48.91 - Unspecified atrial fibrillation Status: Inactive Assessment and Plan: Appreciate cardiology consultation, continue to titrate propranolol as blood pressure allows, will increase to 40 mg every 4 hours (3) Congestive heart failure: Qualifiers: Heart failure chronicity: acute Heart failure type: unspecified Qualified Code(s): I50.9 - Heart failure, unspecified Code(s): I50.9 - Heart failure, unspecified Status: Inactive Assessment and Plan: Severe cardiomyopathy induced by uncontrolled hyperthyroidism, appreciate cardiology consultation Continue IV diuresis with Lasix as blood pressure allows (4) Hyperthyroidism: Code(s): E05.90 - Thyrotoxicosis, unspecified without thyrotoxic crisis or storm Status: Acute Assessment and Plan: History of hyperthyroidism, TSH undetectable, T4 elevated, T3 still pending Continue methimazole 20 mg q4h Continue propranolol, dosing per cardio, will increase as BP allows, currently increased to 30 mg Q4h Patient will need outpatient Endocrinology consultation and ultimate ablation of her thyroid Will initiate cholestyramine 4 g TID Will initiate transfer for higher level of care with endocrinology support, awaiting call back from [facility] to get a bed with endo support Thyroid US pending (5) Type 2 diabetes mellitus with hyperglycemia: Qualifiers: Diabetes mellitus half-way insulin use: unspecified half-way insulin use status Qualified Code(s): E11.65 - Type 2 diabetes mellitus with hyperglycemia Code(s): E11.65 - Type 2 diabetes mellitus with hyperglycemia Status: Acute Assessment and Plan: New onset diabetes with A1c greater than 14 Diabetic Education ordered, Lantus initiated, titrate up as necessary, continue Accu-Cheks and sliding scale Although hyperthyroidism can cause hyperglycemia due to the catecholamine induced inhibition of insulin release, with an A1c of 14 there is a strong possibility of underlying diabetes exacerbated by thyroid storm (6) Elevated LFTs: Code(s): R79.89 - Other specified abnormal findings of blood chemistry Status: Acute Assessment and Plan: Likely secondary to hypoperfusion and uncontrolled hyperthyroidism Hepatitis panel negative, continue to trend Consider liver ultrasound if this does not improve as expected (7) Dental infection: Code(s): K04.7 - Periapical abscess without sinus Status: Acute Assessment and Plan: Unasyn started on November 01 for recently diagnosed dental caries, plan is for a 10 day course, end date November 10 Plan 11/03/22 1332: Patient is accepted by Hospital Medicine, Cardiology and Endocrinology at [facility] and is on the waiting list for a bed, they anticipate that they will have 1 later today or tomorrow morning. 11/04/2022: Patient is still on waiting list at [facility]. DVT prophylaxis with Xarelto GI prophylaxis not indicated Code status full code Subjective Date/time seen: 11/03/22 08:57 Interval history: Patient continues to deteriorate. No significant overnight events noted. No fevers or chills. Review of Systems Review of Systems: ROS unobtainable: Yes unobtainable due to mental status Exam Narrative: General: Appears clammy, cachectic and uncomfortable, lethargic, alert and oriented x 4 HEENT: Atraumatic, normocephalic, mucous membranes moist CV: Tachycardic, irregularly irregular, S1, S2 Lungs:
[2022-11-03 10:46] LABS: Add Urine Microscopic? YES; Appearance Urine Clear (Clear); Bilirubin Urine Negative (Negative); Blood Urine Negative (Negative); Color Urine Yellow (Yellow); Glucose Urine UA Negative (Negative); Ketones Urine Trace mg/dL (Negative); Leukocyte Esterase Ur Negative LEU/UL (NEGATIVE); Nitrate Urine Negative (Negative); Protein Urine Trace mg/dL (Negative); Specific Grav Ur >= 1.030 (1.001-1.035); Urobilinogen Urine 0.2 mg/dL (<2.0)
[2022-11-03 10:54] LABS: Budding Yeast Urine Present /hpf; Mucus Urine Rare /lpf; RBC Urine 21-50 /hpf (0-2); Squamous Epithelial Cell Urine Rare /hpf (Few)
--- NOTE | 2022-11-03 11:49 | PM.PNCARD ---
Progress Note: A&P Assessment and Plan (1) Atrial fibrillation with RVR: Code(s): I48.91 - Unspecified atrial fibrillation Status: Acute Assessment and Plan: Remains tachycardic although stable hemodynamically. Propranolol 20 mg p.o. q.4 hours tolerating thus far. Will continue to monitor response. Not able to significant escalate at this time. Need to monitor BP closely. Thyrotoxicosis driving AFib with RVR and LV dysfunction. Limited options be on rate control at this time. Antiarrhythmic therapy generally would not be advised given severe hyperthyroidism particularly with amiodarone. Given LV dysfunction and CHF dofetilide may be an option but this generally is reserved for use by electrophysiology. Recommendations to follow based on patient's tolerance therapy. It is underlying infection given leukocytosis this may further drive her atrial fibrillation. Workup underway in this regard. Systemic anticoagulation for embolic stroke risk reduction. She would benefit from further heart rate control with this is particularly difficult given the circumstances cardioversion is not reasonable given the high likelihood she will revert back to AFib in her hyperthyroid state and patient at undue risk for sedation and recent relative hypotension. Prognosis is guarded. She is at increased risk for ventricular arrhythmias. Continue telemetry. Monitor electrolytes very closely. (2) Congestive heart failure: Code(s): I50.9 - Heart failure, unspecified Status: Acute Assessment and Plan: Severe LV systolic dysfunction EF 15-20%. Patient fairly compensated at this time. Remains on Lasix 20 mg IV b.i.d.. If BP permits to consider low-dose Entresto for cardiovascular support. (3) Hyperthyroidism: Code(s): E05.90 - Thyrotoxicosis, unspecified without thyrotoxic crisis or storm Status: Acute Assessment and Plan: Per primary service. Continue methimazole (4) Leukocytosis: Code(s): D72.829 - Elevated white blood cell count, unspecified Status: Acute Assessment and Plan: As above, per primary service. Blood cultures pending. (5) Type 2 diabetes mellitus with hyperglycemia: Qualifiers: Diabetes mellitus watermelon inspector insulin use: unspecified watermelon inspector insulin use status Qualified Code(s): E11.65 - Type 2 diabetes mellitus with hyperglycemia Code(s): E11.65 - Type 2 diabetes mellitus with hyperglycemia Status: Acute Subjective Date/time seen: Date of service: 11/03/22 11:49 Interval history: Follow-up visit in this 67-year-old woman with: Chronic severe untreated hyperthyroidism resulting in atrial fibrillation RVR and cardiomyopathy. Patient appears fatigued, states she is short of breath at times but would not expand further on this. Denies chest pain. and daughter at bedside. She remains in AFib with RVR heart rate range 120's-130's generally. Tolerating propranolol started yesterday thus far. BP stable. Blood cultures drawn this morning for leukocytosis. Afebrile. She admits to feeling weak. Explained cardiovascular management and concerns patient, her and daughter bedside. All questions answered to their satisfaction. Review of Systems Review of Systems: All systems reviewed & are unremarkable except as noted in HPI and below Constitutional: Constitutional: Denies excessive sweating and Reports weakness Eyes: Eyes: Denies blurry vision ENT: Reports Normal hearing present Cardiovascular: Cardiovascular: Denies chest pain, Denies lightheadedness and Reports dyspnea Respiratory: Respiratory: Denies chest congestion and Reports dyspnea Gastrointestinal: Gastrointestinal: Denies abdominal pain Genitourinary: Genitourinary: Denies hematuria Musculoskeletal: Musculoskeletal: Denies back pain and Denies myalgias Integumentary/Breasts: Skin/Breast: Denies skin pain and Denies wounds Neurologic: Reports
[2022-11-03 12:37] LABS: Glucose Point of Care 194 mg/dl (65-105)
[2022-11-03] MEDS: PROPRANOLOL HCL 10 MG TABLET 30 MG PO ×3 (12:45→21:20)
[2022-11-03] MEDS: FUROSEMIDE INJ 40 MG/4 ML VIAL 20 MG IV PUSH ×2 (12:46→17:13)
[2022-11-03] MEDS: CHOLESTYRAMINE LIGHT 4 GM POWD.PACK PO ×3 (13:52→21:23)
[2022-11-03] MEDS: RIVAROXABAN 20 MG TABLET PO (17:12)
[2022-11-03 18:14] LABS: Glucose Point of Care 306 mg/dl (65-105)
[2022-11-03] MEDS: INSULIN ASPART (*BKC) 100 UNITS/ML SUB-Q (18:29)
[2022-11-03 20:17] LABS: Glucose Point of Care 198 mg/dl (65-105)
[2022-11-03] MEDS: INSULIN GLARGINE (*BKC) 100 UNITS/ML 20 UNITS SUB-Q (21:19)
[2022-11-04] VITALS (20 sets, daily range): BP systolic 80–149; BP diastolic 54–116; PULSE 107–141; RESP 12–30; TEMP 35.9–36.6; O2SAT 94–98
[2022-11-04] MEDS: AMPICILLIN SULB 3 GM/NS 100 ML 3 GM/100 ML VIAL IVPB ×3 (00:04→12:33)
[2022-11-04] MEDS: PROPRANOLOL HCL 10 MG TABLET 30 MG PO ×4 (00:04→12:35)
[2022-11-04] MEDS: methiMAzole 10 MG TAB 20 MG PO ×6 (00:05→21:47)
[2022-11-04 00:54] LABS: Glucose Point of Care 77 mg/dl (65-105)
[2022-11-04] MEDS: LORazepam INJ (*CRX) 2 MG/ML VIAL 0.5 MG IV PUSH ×2 (01:04→15:23)
[2022-11-04] MEDS: ONDANSETRON INJ 4 MG/2 ML VIAL IV PUSH ×2 (01:04→17:24)
[2022-11-04 05:32] LABS: Basophils Absolute Auto 0.1 K/mm3 (0.0-0.1); Basophils Percent Auto 0.2 % (0.2-1.2); Eosinophils Percent Auto 0.1 % (0-4.4); Hematocrit 46.4 % (37.0-47.0); Hemoglobin 15.4 g/dL (12.0-15.0); Immature Granulocyte Absolute 0.21 K/mm3 (0.00-0.031); Lymphocytes Absolute Auto 3.34 K/mm3 (0.9-3.2); Lymphocytes Percent Auto 15.4 % (18.3-44.2); Mean Corpuscular HGB Conc 33.2 g/dl (32-36); Mean Corpuscular Hemoglobin 27.9 pg (26-34); Mean Corpuscular Volume 84.2 fl (80-100); Mean Platelet Volume 10.1 fl (7.4-10.4); Monocytes Absolute Auto 1.9 K/mm3 (0.1-0.6); Monocytes Percent Auto 8.6 % (2.6-8.5); Neutrophils Absolute Auto 16.2 K/mm3 (1.3-6.7); Neutrophils Percent Auto 74.7 % (45.5-73.1); Platelet Count Result 350 k/mm3 (150-375); Red Blood Count 5.51 M/mm3 (4.2-5.4); White Blood Count 21.7 K/mm3 (4.5-10.0)
[2022-11-04 05:54] LABS: Alanine Aminotransferase 202 U/L (6-35); Albumin Level 2.9 g/dL (3.5-5.1); Alkaline Phosphatase 278 U/L (38-126); Anion Gap 3 mmol/L (8-16); Aspartate Amino Transferase 96 U/L (14-36); Bilirubin,Total 1.2 mg/dL (0.2-1.3); Blood Urea Nitrogen 43 mg/dL (7-17); Calcium 8.9 mg/dL (8.4-10.2); Carbon Dioxide 30 mmol/L (22-30); Chloride 106 mmol/L (98-107); Estimated CRCL calculation 70 ml/min; Estimated Glomerular Filt Rate > 60; Glucose 44 mg/dL (65-110); Sodium 139 mmol/L (137-145)
[2022-11-04] MEDS: DEXTROSE 50% 25 GM/50 ML SYRINGE IV PUSH (05:58)
[2022-11-04 06:50] LABS: Glucose Point of Care 132 mg/dl (65-105)
[2022-11-04] MEDS: FUROSEMIDE INJ 40 MG/4 ML VIAL 20 MG IV PUSH ×3 (09:00→17:20)
[2022-11-04] MEDS: CHOLESTYRAMINE LIGHT 4 GM POWD.PACK PO ×3 (09:00→21:47)
[2022-11-04 11:38] LABS: Glucose Point of Care 189 mg/dl (65-105)
[2022-11-04 11:38] LABS: Glucose Point of Care 167 mg/dl (65-105)
[2022-11-04] MEDS: POTASSIUM CHLORIDE 20 MEQ TABLET.ER 40 MEQ PO ×2 (12:35→18:16)
--- NOTE | 2022-11-04 13:27 | PM.IMPN ---
Progress Note: A&P Assessment and Plan (1) Leukocytosis: Code(s): D72.829 - Elevated white blood cell count, unspecified Status: Acute Assessment and Plan: Continue current plan (2) Atrial fibrillation with rapid ventricular response: Code(s): I48.91 - Unspecified atrial fibrillation Status: Inactive Assessment and Plan: Continue propranolol at increased dose (3) Congestive heart failure: Qualifiers: Heart failure chronicity: acute Heart failure type: unspecified Qualified Code(s): I50.9 - Heart failure, unspecified Code(s): I50.9 - Heart failure, unspecified Status: Inactive Assessment and Plan: Severe cardiomyopathy induced by uncontrolled hyperthyroidism, appreciate cardiology consultation Continue IV diuresis with Lasix as blood pressure allows (4) Hyperthyroidism: Code(s): E05.90 - Thyrotoxicosis, unspecified without thyrotoxic crisis or storm Status: Acute Assessment and Plan: History of hyperthyroidism, TSH undetectable, T4 elevated, T3 still pending Continue methimazole 20 mg q4h Continue propranolol, dosing per cardio, will increase as BP allows, currently increased to 30 mg Q4h Patient will need outpatient Endocrinology consultation and ultimate ablation of her thyroid Will initiate cholestyramine 4 g TID Will initiate transfer for higher level of care with endocrinology support, awaiting call back from [place] to get a bed with endo support Thyroid US pending (5) Type 2 diabetes mellitus with hyperglycemia: Qualifiers: Diabetes mellitus residential insulin use: unspecified assistant terminal manager insulin use status Qualified Code(s): E11.65 - Type 2 diabetes mellitus with hyperglycemia Code(s): E11.65 - Type 2 diabetes mellitus with hyperglycemia Status: Acute Assessment and Plan: New onset diabetes with A1c greater than 14 Diabetic Education ordered, Lantus initiated, titrate up as necessary, continue Accu-Cheks and sliding scale Although hyperthyroidism can cause hyperglycemia due to the catecholamine induced inhibition of insulin release, with an A1c of 14 there is a strong possibility of underlying diabetes exacerbated by thyroid storm (6) Elevated LFTs: Code(s): R79.89 - Other specified abnormal findings of blood chemistry Status: Acute Assessment and Plan: Likely secondary to hypoperfusion and uncontrolled hyperthyroidism Hepatitis panel negative, continue to trend Consider liver ultrasound if this does not improve as expected (7) Dental infection: Code(s): K04.7 - Periapical abscess without sinus Status: Acute Assessment and Plan: Unasyn started on November 01 for recently diagnosed dental caries, plan is for a 10 day course, end date November 10 Plan 11/03/22 1332: Patient is accepted by Hospital Medicine, Cardiology and Endocrinology at [facility] and is on the waiting list for a bed, they anticipate that they will have 1 later today or tomorrow morning. DVT prophylaxis with Xarelto GI prophylaxis not indicated Code status full code Subjective Date/time seen: 11/04/22 13:27 Interval history: In general, she states that she feels awful. Appetite is poor. Family at bedside with multiple questions, extensive discussion regarding assessment, plan. All questions answered. Awaiting bed at [place] with endocrinology support. Review of Systems Review of Systems: ROS unobtainable: Yes unobtainable due to mental status Exam Narrative: General: Appears clammy, cachectic and uncomfortable, lethargic, alert and oriented x 4 HEENT: Atraumatic, normocephalic, mucous membranes moist CV: Tachycardic, irregularly irregular, S1, S2 Lungs: Diminished throughout, no wheeze Abdomen: Soft, tender, non distended Extremities: Normal to inspection Skin: No rashes noted, no lesions or wounds seen Psych: Dysthymic, lethargic, unable to fully assess Objective Data
[2022-11-04] MEDS: ACETAMINOPHEN 325 MG TABLET 650 MG PO (14:13)
--- NOTE | 2022-11-04 15:18 | PM.PNCARD ---
Progress Note: A&P Assessment and Plan (1) Atrial fibrillation with RVR: Code(s): I48.91 - Unspecified atrial fibrillation Status: Acute Assessment and Plan: Remains tachycardic although stable hemodynamically. Propranolol increased 30 mg q.4 hours to 40 mg q.4 hours for benefit with regards to hyperthyroid in addition to heart rate control. She remains tachycardic. Options limited in this regard unfortunately. Patient at high risk for complications, ventricular arrhythmias given LV dysfunction felt to be at least in part tachycardia induced. Continue telemetry. Prognosis is quite guarded unfortunately. (2) Congestive heart failure: Code(s): I50.9 - Heart failure, unspecified Status: Acute Assessment and Plan: Severe LV systolic dysfunction EF 15-20%. Patient fairly compensated at this time. Remains on Lasix 20 mg IV CAD given shortness of breath, worsening crackles on exam 11/03/2022. Patient clinically appears improved. Monitor renal function, BP electrolytes closely. If BP permits to consider low-dose Entresto for cardiovascular support. Patient high risk for complications. (3) Hyperthyroidism: Code(s): E05.90 - Thyrotoxicosis, unspecified without thyrotoxic crisis or storm Status: Acute Assessment and Plan: Per primary service. Continue methimazole (4) Hypokalemia: Code(s): E87.6 - Hypokalemia Status: Acute Assessment and Plan: Patient significantly hypokalemic with potassium of 3.0 this morning. Replete keep around 4.0. Check magnesium in a.m.. Patient given 40 mEq p.o. with repeat x1 4 hours later. (5) Leukocytosis: Code(s): D72.829 - Elevated white blood cell count, unspecified Status: Acute Assessment and Plan: As above, per primary service. Blood cultures pending. Progressive leukocytosis (6) Type 2 diabetes mellitus with hyperglycemia: Qualifiers: Diabetes mellitus penitentiary insulin use: unspecified penitentiary insulin use status Qualified Code(s): E11.65 - Type 2 diabetes mellitus with hyperglycemia Code(s): E11.65 - Type 2 diabetes mellitus with hyperglycemia Status: Acute Assessment and Plan: Management per primary service. Subjective Date/time seen: Date of service: 11/04/22 10:45 Interval history: Follow-up visit in this 67-year-old woman with: Chronic severe untreated hyperthyroidism resulting in atrial fibrillation RVR and cardiomyopathy. Patient feels a little better today. Remains tachycardic in AFib with RVR particularly with any activity 110's-130's. Patient hypoglycemic this morning. BP stable. Patient feels fatigued denies chest pain. Breathing a little bit better less short of breath. Review of Systems Review of Systems: All systems reviewed & are unremarkable except as noted in HPI and below Constitutional: Constitutional: Denies excessive sweating and Reports weakness Eyes: Eyes: Denies blurry vision ENT: Reports Normal hearing present Cardiovascular: Cardiovascular: Denies chest pain, Denies lightheadedness and Reports dyspnea Respiratory: Respiratory: Denies chest congestion and Reports dyspnea Gastrointestinal: Gastrointestinal: Denies abdominal pain Genitourinary: Genitourinary: Denies hematuria Musculoskeletal: Musculoskeletal: Denies back pain and Denies myalgias Integumentary/Breasts: Skin/Breast: Denies skin pain and Denies wounds Neurologic: Reports Normal hearing present, Denies Abnormal speech present, Denies confusion and Reports weakness Psychiatric: Psychiatric: Denies anxiety and Denies confusion Endocrine: Endocrine: Denies excessive sweating Hematologic/Lymphatic: Hematologic/Lymphatic: Denies easy bleeding Allergic/Immunologic: Allergic/Immunologic: Denies GI upset with certain foods Exam Narrative: Alert and oriented appears stated age. Const: General: comfortable and no acute distress; No confusion Orie
[2022-11-04 17:10] LABS: Glucose Point of Care 348 mg/dl (65-105)
[2022-11-04] MEDS: INSULIN ASPART (*BKC) 100 UNITS/ML SUB-Q (17:20)
[2022-11-04] MEDS: RIVAROXABAN 20 MG TABLET PO (18:16)
[2022-11-04] MEDS: PROPRANOLOL HCL 40 MG TABLET PO ×2 (18:17→21:47)
[2022-11-04 19:21] LABS: Glucose Point of Care 323 mg/dl (65-105)
[2022-11-04] MEDS: INSULIN GLARGINE (*BKC) 100 UNITS/ML 15 UNITS SUB-Q (21:45)
[2022-11-05] VITALS (13 sets, daily range): BP systolic 88–102; BP diastolic 58–75; PULSE 106–141; RESP 18–36; TEMP 35.8–36.8; O2SAT 94–100
[2022-11-05] MEDS: methiMAzole 10 MG TAB 20 MG PO ×4 (00:17→13:52)
[2022-11-05 05:09] LABS: Alanine Aminotransferase 147 U/L (6-35); Albumin Level 2.5 g/dL (3.5-5.1); Alkaline Phosphatase 232 U/L (38-126); Anion Gap 5 mmol/L (8-16); Aspartate Amino Transferase 84 U/L (14-36); Blood Urea Nitrogen 43 mg/dL (7-17); Calcium 8.5 mg/dL (8.4-10.2); Carbon Dioxide 24 mmol/L (22-30); Chloride 105 mmol/L (98-107); Estimated CRCL calculation 72 ml/min; Estimated Glomerular Filt Rate > 60; Glucose 276 mg/dL (65-110); Potassium 3.9 mmol/L (3.4-5.0); Sodium 134 mmol/L (137-145)
[2022-11-05 05:09] LABS: Basophils Percent Auto 0.2 % (0.2-1.2); Eosinophils Percent Auto 0.2 % (0-4.4); Hematocrit 45.4 % (37.0-47.0); Hemoglobin 14.5 g/dL (12.0-15.0); Immature Granulocyte Absolute 0.14 K/mm3 (0.00-0.031); Immature Granulocyte Percent A 0.8 % (0-0.5); Lymphocytes Absolute Auto 3.74 K/mm3 (0.9-3.2); Lymphocytes Percent Auto 20.4 % (18.3-44.2); Mean Corpuscular HGB Conc 31.9 g/dl (32-36); Mean Corpuscular Hemoglobin 27.8 pg (26-34); Mean Corpuscular Volume 87.1 fl (80-100); Mean Platelet Volume 10.5 fl (7.4-10.4); Monocytes Absolute Auto 1.2 K/mm3 (0.1-0.6); Monocytes Percent Auto 6.8 % (2.6-8.5); Neutrophils Absolute Auto 13.2 K/mm3 (1.3-6.7); Neutrophils Percent Auto 71.6 % (45.5-73.1); Platelet Count Result 306 k/mm3 (150-375); Red Blood Count 5.21 M/mm3 (4.2-5.4); Red Cell Distribution Width 14.2 % (11.5-14.5); White Blood Count 18.4 K/mm3 (4.5-10.0)
[2022-11-05 05:35] LABS: Thyroid Stimulating Hormone < 0.015 uIU/mL (0.465-4.680)
[2022-11-05 08:16] LABS: Glucose Point of Care 229 mg/dl (65-105)
[2022-11-05] MEDS: INSULIN ASPART (*BKC) 100 UNITS/ML SUB-Q (08:36)
[2022-11-05] MEDS: ONDANSETRON INJ 4 MG/2 ML VIAL IV PUSH (08:36)
[2022-11-05] MEDS: FUROSEMIDE INJ 40 MG/4 ML VIAL 20 MG IV PUSH ×2 (08:37→12:03)
--- NOTE | 2022-11-05 11:54 | PM.PNCARD ---
Progress Note: A&P Assessment and Plan (1) Atrial fibrillation with RVR: Code(s): I48.91 - Unspecified atrial fibrillation Status: Acute Assessment and Plan: Remains tachycardic although stable hemodynamically. Propranolol increased to 40 mg q.4 hours for benefit with regards to hyperthyroid in addition to heart rate control, yet remains poorly controlled. Options limited in this regard unfortunately. Patient at high risk for complications, ventricular arrhythmias given LV dysfunction felt to be at least in part tachycardia induced. Continue telemetry. Prognosis is quite guarded unfortunately. antiarrhythmic therapy limited as well, cardioversion anticipated to be of limited utility with significant risk given clinical status. She may benefit from electrophysiology consultation at [facility] as well given these unique and difficult circumstances. (2) Congestive heart failure: Code(s): I50.9 - Heart failure, unspecified Status: Acute Assessment and Plan: Severe LV systolic dysfunction EF 15-20%. Patient fairly compensated at this time. Remains on Lasix 20 mg IV TID electrolytes stable. Patient clinically appears improved. Monitor renal function, electrolytes closely. If BP permits to consider low-dose Entresto for cardiovascular support. Patient high risk for complications. (3) Hyperthyroidism: Code(s): E05.90 - Thyrotoxicosis, unspecified without thyrotoxic crisis or storm Status: Acute Assessment and Plan: Per primary service. Continue methimazole, propranolol. Agree with transfer to [facility] for Endocrinology consultative services. (4) Hypokalemia: Code(s): E87.6 - Hypokalemia Status: Acute Assessment and Plan: Patient significantly hypokalemic with potassium of 3.0 this morning. Replete keep around 4.0. Check magnesium in a.m.. Patient given 40 mEq p.o. with repeat x1 4 hours later. (5) Leukocytosis: Code(s): D72.829 - Elevated white blood cell count, unspecified Status: Acute Assessment and Plan: As above, per primary service. Blood cultures pending. 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 Subjective Date/time seen: Date of service: 11/05/22 11:54 Interval history: Follow-up visit in this 67-year-old woman with: Chronic severe untreated hyperthyroidism resulting in atrial fibrillation RVR and cardiomyopathy. Patient feels weak. and daughter at bedside. She denies worsening shortness of breath. She denies chest pain or palpitations. Patient lying flat in bed no respiratory distress. She remains tachycardic in AFib with RVR on high-dose oral propranolol. She has been accepted for transfer to [facility] for endocrinology consultation/management. Review of Systems Review of Systems: All systems reviewed & are unremarkable except as noted in HPI and below Constitutional: Constitutional: Denies excessive sweating and Reports weakness Eyes: Eyes: Denies blurry vision ENT: Reports Normal hearing present Cardiovascular: Cardiovascular: Denies chest pain, Denies lightheadedness and Reports dyspnea Respiratory: Respiratory: Denies chest congestion and Reports dyspnea Gastrointestinal: Gastrointestinal: Denies abdominal pain Genitourinary: Genitourinary: Denies hematuria Musculoskeletal: Musculoskeletal: Denies back pain and Denies myalgias Integumentary/Breasts: Skin/Breast: Denies skin pain and Denies wounds Neurologic: Reports Normal hearing present, Denies Abnormal speech present, Denies confusion and Reports weakness
[2022-11-05] MEDS: PROPRANOLOL HCL 40 MG TABLET PO (12:04)
[2022-11-05 12:29] LABS: Glucose Point of Care 182 mg/dl (65-105)
[2022-11-06 20:28] LABS: Triiodothyronine T3 Free 5.3 pg/mL (2.3-4.2)
[2022-11-07 13:38] LABS: Thyroid Stimulating Immunoglob <89 % baseline (<140)
--- NOTE | 2022-11-19 15:43 | PM.TDS ---
Transfer Discharge Sum: Prov Provider Date of admission: 11/01/22 14:17 Primary care physician: DB2 DBA PHYSICIAN Admitting clinician: Kemal Benítez MD Consults: 10/31/22 Consult to Dietitian Routine Reason for Consult:: New onset diabetes 10/31/22 17:14 Consult to Physician Routine Comment: Consulting Provider: Mesfin Cruz Reason for consultation: New onset AFIB/CHF Has provider been notified: Yes 11/01/22 Consult to Physician Routine Comment: Consulting Provider: Steve Mckeon call center specialist/MD group to consult: Dr. Mckeon Reason for consultation: Hypotension Hyperthyroidism Has provider been notified: Yes DS: Admitting Diagnosis Discharge Date 11/05/22 Admitting Diagnosis Shortness of breath DS: Discharge Diagnosis Discharge Diagnosis (1) Leukocytosis: Code(s): D72.829 - Elevated white blood cell count, unspecified Status: Acute Assessment and Plan: Continue current plan (2) Atrial fibrillation with rapid ventricular response: Code(s): I48.91 - Unspecified atrial fibrillation Status: Inactive Assessment and Plan: Continue propranolol at increased dose (3) Congestive heart failure: Qualifiers: Heart failure chronicity: acute Heart failure type: unspecified Qualified Code(s): I50.9 - Heart failure, unspecified Code(s): I50.9 - Heart failure, unspecified Status: Inactive Assessment and Plan: Severe cardiomyopathy induced by uncontrolled hyperthyroidism, appreciate cardiology consultation Continue IV diuresis with Lasix as blood pressure allows (4) Hyperthyroidism: Code(s): E05.90 - Thyrotoxicosis, unspecified without thyrotoxic crisis or storm Status: Acute Assessment and Plan: History of hyperthyroidism, TSH undetectable, T4 elevated, T3 still pending Continue methimazole 20 mg q4h Continue propranolol, dosing per cardio, will increase as BP allows, currently increased to 30 mg Q4h Patient will need outpatient Endocrinology consultation and ultimate ablation of her thyroid Will initiate cholestyramine 4 g TID Will initiate transfer for higher level of care with endocrinology support, awaiting call back from [facility] to get a bed with endo support Thyroid US pending (5) Type 2 diabetes mellitus with hyperglycemia: Qualifiers: Diabetes mellitus detention insulin use: unspecified detention insulin use status Qualified Code(s): E11.65 - Type 2 diabetes mellitus with hyperglycemia Code(s): E11.65 - Type 2 diabetes mellitus with hyperglycemia Status: Acute Assessment and Plan: New onset diabetes with A1c greater than 14 Diabetic Education ordered, Lantus initiated, titrate up as necessary, continue Accu-Cheks and sliding scale Although hyperthyroidism can cause hyperglycemia due to the catecholamine induced inhibition of insulin release, with an A1c of 14 there is a strong possibility of underlying diabetes exacerbated by thyroid storm (6) Elevated LFTs: Code(s): R79.89 - Other specified abnormal findings of blood chemistry Status: Acute Assessment and Plan: Likely secondary to hypoperfusion and uncontrolled hyperthyroidism Hepatitis panel negative, continue to trend Consider liver ultrasound if this does not improve as expected (7) Dental infection: Code(s): K04.7 - Periapical abscess without sinus Status: Acute Assessment and Plan: Unasyn started on November 01 for recently diagnosed dental caries, plan is for a 10 day course, end date November 10 Plan 11/03/22 1332: Patient is accepted by Hospital Medicine, Cardiology and Endocrinology at [facility] and is on the waiting list for a bed, they anticipate that they will have 1 later today or tomorrow morning. DVT prophylaxis with Xarelto GI prophylaxis not indicated Code status full code Transfer Discharge Sum: Med Medications Active and Home Medications: Home Medicat
== END 2022-11-05 14:27 | disposition short-term general hospital (02) | DRG 310 ==
LOC: ANHED 17:16 → ANHIMU 19:20 → ANHICU 11-02 08:27 → ANHIMU 11-07 11:54
PROVIDERS: Internal Medicine; Nurse Practitioner; Physician Assistant; Admitting Provider Internal Medicine; Emergency Provider Emergency Medicine; Visit Provider Student in an Organized Health Care Education/Training Program
DX: I48.91 Unspecified atrial fibrillation (principal); I50.9 Heart failure, unspecified; E05.90 Thyrotoxicosis, unspecified without thyrotoxic crisis or storm; E11.65 Type 2 diabetes mellitus with hyperglycemia; I11.0 Hypertensive heart disease with heart failure; K04.7 Periapical abscess without sinus; E87.6 Hypokalemia; I42.8 Other cardiomyopathies; Z20.822 Contact with and (suspected) exposure to COVID-19; Z82.49 Family history of ischemic heart disease and other diseases of the circulatory system
CPT/HCPCS: 36415; 36600; 71045; 71046; 71275; 76536; 76705; 80048; 80053; 80074; 81001; 82140; 82805; 82948; 83036; 83735; 83880; 84100; 84439; 84443; 84445; 84480; 84481; 84484; 85025; 85610; 85730; 87040; 87081; 87086; 87426; 87636; 93005; 93306; 93970; 96365; 96366; 96367; 96372; 96375; 99215; 99285; A9270; C9803; G0378; G0463; J0295; J0456; J1650; J1815; J1940; J2060; J2405; J2543; J3370; J3475; J7030; J7040; Q9967

== ENCOUNTER 2023-01-30 14:30 | Outpatient (RCR) | payer MEDICARE, SELFPAY ==
--- NOTE | 2022-12-06 14:33 | PTOPEVAL1 ---
Assessment and note entered by Tashia Boss, PT Evaluation Information Assessment Status Evaluation Diagnosis debility Onset Oct 31, 2022 Subjective Information home from hospital Nov 13; since home, daughter and are helping her; goal to be able to walk better, get stronger, walk more; is doing sitting and standing leg exercises from the hospital, PRN and did not know the number-- just doing some; Reported Pain Level Pain Score 0: Self Report Assessment PT Clinical Summary Zeferino has the diagnosis of debility. Her order has OT orders also, pt stated she did not want OT at this time. She has had recent hospitalization-- for new dx and treatment of: a fib, CHF, diabetes and thyroid issues, and returned home Oct 13, with decreased mobility. Prior to hospitalization she was indep with all mobility and self care tasks, with gradual weakness and decline in status before she went to the hospital. Her and daughter are assisting her at home. She has not had any falls since she has been home. With the evaluation, she has decreased R and L LE strength, TUG time of 23 sec, 2 minute walk test distance of 190' with wheeled walker and Tinetti balance/gait score of 19/28= high risk for falls. Skilled PT services are indicated to increase LE strength, gait and balance skills, to return to indep with mobility and home tasks. And be able to go to the upstairs of her home. Including education for home exercises and gait pattern. Plan of Care Interventions Gait Training,Neuro Re-education,Patient/Caregiver Education,Therapeutic Activities,Therapeutic Exercise PT Services Indicated Yes Treatment Frequency and 2x/wk for 5 weeks Duration These treatments will address the objective and functional deficits as defined above. The patient will be advanced safely and appropriately in order for the patient to progress towards his/her prior level of function. Additional exercises will be introduced and as well as a comprehensive home exercise program upon discharge, if needed, ?to ensure carryover of functional gains achieved in the clinic. This treatment plan has been reviewed and agreement upon by the patient.
--- NOTE | 2023-01-04 11:16 | PCPTNOTE ---
Pt cancelled her appt today do to hurting her back.
--- NOTE | 2023-01-09 14:24 | PTOPPROG ---
Assessment and note entered by Tashia Boss, PT Evaluation Information Assessment Status Progress Diagnosis debility Onset Oct 31, 2022 Subjective Information Zeferino reports: in some ways things are better-- getting in/out trunk with less help with her legs; is having more back pain, so not doing as many exercises at home; in the house, is not using the walker; have gone out to eat and shopping, using the walker to get around; is doing her bathing and dressing most of the time by herself--did need some help when her back was hurting more; GOAL: walk better and more, not need the walker to walk Pain: back pain 01/18; Assessment PT Clinical Summary Zeferino has received 6 PT sessions. She called and canceled one appointment due to back pain. Compared to the initial evaluation: 2 minute walking test distance was the same; TUG time slightly increased; strength of LE's slightly increased; reported home activity increased with self care, is going out into the community and easier to get legs in/out of truck; Back pain has limited her the past week. Reinforced continue to increase HEP, activity and strength. The goals were partially met. Continue PT to further increase LE strength, transfer and gait skills. Plan of Care Interventions Gait Training,Neuro Re-education,Patient/Caregiver Education,Therapeutic Activities,Therapeutic Exercise PT Services Indicated Yes Treatment Frequency and 2x/wk for 3 weeks Duration These treatments will address the objective and functional deficits as defined above. The patient will be advanced safely and appropriately in order for the patient to progress towards his/her prior level of function. Additional exercises will be introduced and as well as a comprehensive home exercise program upon discharge, if needed, ?to ensure carryover of functional gains achieved in the clinic. This treatment plan has been reviewed and agreement upon by the patient.
--- NOTE | 2023-01-30 15:21 | PTOPDC ---
Assessment and note entered by Tashia Boss, PT Evaluation Information Assessment Status Discharge Diagnosis debility Onset Oct 31, 2022 Subjective Information Zeferino reports: had 2 falls, left knee gave out, not a hard fall, landed softly on the floor; have been doing some of the leg exercises; back is hurting more and cannot do as much; in the house, is not using the walker--not enough room for it; use the walker when go out places; have been going out to eat and walking short distances; use the scooter with large store shopping; family is helping her get into bath tub; assists her into truck, due to higher seat; With discussion about discharge from therapy-- daughter became upset and did not want her mother to stop therapy; discussed with her that her progress is minimal, she has home exercises that she needs to do and needs to walk more at home; family is continuing to assist her with self care and mobility; daughter said that consulting technical director wants her to do cardiac rehab. Discussed that is an option, to monitor her heart to see if that is a reason she is so fatigued and tired. Reported Pain Level Pain Score 5: Self Report Additional Pain Score Comments low back pain Assessment PT Clinical Summary Zeferino has received a total of 11 PT sessions for debility. Compared to the last reevaluation: TUG has improved by 16 seconds; 2 minute walking test distance increased from 190' to 200' with wheeled walker; requires use of 1 UE for sit to stand transfer, previously needed both UE's; supine mat exercises on R and L LE are about same with bridge, hip abduction and less with SLR, only able to perform 2 reps due to leg weakness. She is using the wheeled walker for short distances outside of home or using the motorized scooter for longer distances with shopping. Family is assisting her with transfer in/out truck and in/out bath tub to tub seat. She reports 2 falls since start of therapy due to L knee giving out when walking in the home without the walker. The goals were partially achieved. Discharge from PT services. She is to continue with her home exercise
== END 2023-01-31 10:30 | disposition home or self-care (01) ==
LOC: ANHPT 14:30
DX: R53.81 Other malaise (principal)
CPT/HCPCS: 97110; 97112; 97116; 97161; 97530

== ENCOUNTER 2023-06-18 11:05 | Outpatient (RCR) | payer SELFPAY ==
[2023-06-18 12:09] VITALS: PULSE 89
== END 2023-08-12 15:30 | disposition home or self-care (01) ==
LOC: ANHCPREHAB 11:05
DX: I50.9 Heart failure, unspecified (principal)
CPT/HCPCS: 99199

== ENCOUNTER 2023-10-14 19:41 | Inpatient (IN) | payer MEDICARE, SELFPAY ==
--- NOTE | ~2023-10-14 | XR_ITS ---
EXAMINATION: [id number] DATE: 10/14/2023 20:30 INDICATION: Left knee pain. Fall. TECHNIQUE: 2 views of left knee were obtained. COMPARISON: None. FINDINGS: Bone alignment is normal. No fracture. There is diffuse osteopenia. There is mild osteoarth ritis of medial and lateral compartments. Patellofemoral compartment is not well profiled. IMPRESSION: 1. Mild left knee osteoarthritis. Reviewed, dictated and finalized at location E. NESS CONTINUITY CONSULTANT
--- NOTE | ~2023-10-14 | XR_ITS ---
EXAM: XR abdomen obstructive series DATE: 10/19/2023 12:56 HISTORY: constipation . COMPARISON: None available. FINDINGS: Senescent changes in the lungs. Normal bowel gas pattern. No organomegaly. No abnormal abd ominal calcification. Degenerative changes in the spine. Redemonstration of the left intertrochanteri c fracture IMPRESSION: No radiographic evidence of obstruction or ileus. Reviewed, dictated and finalized at location K. STRIAL WASTE INSPECTOR
--- NOTE | ~2023-10-14 | XR_ITS ---
EXAMINATION: XR surgery orthopedic DATE: 10/21/2023 14:49 INDICATION: Left hip intertrochanteric nailing TECHNIQUE: 4 fluoroscopic images of the left hip and proximal femur were obtained during procedure pe rformed by Dr. Hdez. Radiologist was not present for the imaging or procedure. The amount of fluorosc opy time used during this procedure was 0.9 minutes. COMPARISON: None. FINDINGS: Interval old reduction internal fixation of the previously seen intertrochanteric fracture the proxim al left femur with an antegrade intramedullary guido and dynamic femoral neck compression screw and dis akash interlocking screw fixation. Alignment appears near-anatomic. No other fractures identified. Mild osteoarthritis at the left hip. IMPRESSION: 1. Near-anatomic alignment post open reduction internal fixation of intratrochanteric fracture of the proximal left femur. Reviewed, dictated and finalized at location A. PTION SPECIALIST IMPRESSION: 1. Near-anatomic alignment post open reduction internal fixation of intratrocha nteric fracture of the proximal left femur.
--- NOTE | ~2023-10-14 | CT_ITS ---
CT Scan of the Chest without Contrast: Clinical Indication: CHF Technique: Contiguous sections were acquired throughout the chest without intravenous contrast. Dose reduction technique was used on this scan by utilizing automated exposure control and iterative recon struction technique. The dose-length product (DLP) was 157.41 mGy-cm. COMPARISON: 10/31/2022 Findings: There is no evidence of any significant mediastinal, hilar or axillary lymphadenopathy. The mediastin al soft tissues appear normal. No pericardial effusion. Small bilateral pleural effusions are present, with minimal bibasilar atelectasis. There is patchy gr oundglass pulmonary consolidation in the right middle lobe and inferior right upper lobe, with severa l focal areas of slightly more confluent consolidation. Images through the upper abdomen reveal no abnormalities. There are compression fractures of T10, L1, L2, new from prior exam. Impression: Patchy consolidation, predominantly groundglass in attenuation, in the right middle lobe and inferior right upper lobe. Given the relatively focal distribution, pneumonia is favored over pulmonary edema . Correlate clinically. Small bilateral pleural effusions. Compression fractures of T10, L1, L2, somewhat age indeterminate, but new since 10/31/2022. Consider MR to better evaluate the underlying marrow signal characteristics for any possibility of underlying lesion, though no distinct pathologic lesion evident on CT imaging. Reviewed, dictated and finalized at location . IS WHEEL OPERATOR Impression: Patchy consolidation, predominantly groundglass in attenuation, in the right mi ddle lobe and inferior right upper lobe. Given the relatively focal distributio n, pneumonia is favored over pulmonary edema. Correlate clinically. Small bilateral pleural effusions. Compression fractures of T10, L1, L2, somewhat age indeterminate, but new since 10/31/2022. Consider MR to better evaluate the underlying marrow signal charac teristics for any possibility of underlying lesion, though no distinct patholog ic lesion evident on CT imaging.
--- NOTE | ~2023-10-14 | XR_ITS ---
EXAMINATION: XR chest 1V DATE: 10/14/2023 20:30 INDICATION: Fall. TECHNIQUE: A single frontal view of the chest was obtained. COMPARISON: Chest one view 11/04/2022, chest CT 10/31/2022 FINDINGS: There is a diffuse interstitial pattern, consistent with mild pulmonary edema. There are ai rspace opacities in right mid and lower lung zones. No pleural effusion or pneumothorax. Cardiomegaly is noted. There is a chronic fracture of L1 vertebral body. IMPRESSION: 1. Mild pulmonary edema. 2. Airspace opacities in right mid and lower lung zones, consistent with atelectasis versus pneumonia versus malignancy. Chest CT is recommended. Reviewed, dictated and finalized at location E. NT SUPPORT COORDINATOR IMPRESSION: 1. Mild pulmonary edema. 2. Airspace opacities in right mid and lower lung zones, consistent with atelec tasis versus pneumonia versus malignancy. Chest CT is recommended.
--- NOTE | ~2023-10-14 | XR_ITS ---
EXAMINATION: XR hip LT 2V w AP pelvis DATE: 10/14/2023 20:30 INDICATION: Left hip pain. Fall. TECHNIQUE: An anteroposterior view of the pelvis and 2 views of left hip were obtained. COMPARISON: None. FINDINGS: There is an intertrochanteric fracture of proximal left femur. The distal fracture fragment demonstrates impaction, 10 degrees varus angulation, and 50 degrees posterior angulation. There is m ild osteoarthritis of the hips. There is severe lumbar spondylosis. IMPRESSION: 1. Intertrochanteric fracture of proximal left femur. 2. Mild osteoarthritis of the hips. Reviewed, dictated and finalized at location E. RVATIONS AND TICKETING AGENT
--- NOTE | ~2023-10-14 | XR_ITS ---
EXAMINATION: XR femur LT min 2V DATE: 10/14/2023 20:30 INDICATION: Left thigh pain. Fall. TECHNIQUE: 2 views of left femur on 4 radiographs were obtained. COMPARISON: None. FINDINGS: There is an intertrochanteric fracture of proximal left femur. The distal fracture fragment demonstrates impaction, varus angulation, and posterior angulation. There is mild left hip and left knee osteoarthritis. IMPRESSION: 1. Intertrochanteric fracture of proximal left femur. Reviewed, dictated and finalized at location E. ER BEARING INSPECTOR
[2023-10-14 19:46] VITALS: BP 137/41; PULSE 81; RESP 20; TEMP 36.9; O2SAT 99
--- NOTE | 2023-10-14 19:52 | ED.LOWEXIN ---
HPI - Extremity Injury (Lower) General Chief Complaint: Extremity Injury, Lower Stated Complaint: GLF; LLE PAIN Time Seen by Provider: 10/14/23 19:46 Source: patient and family (daughter) History of Present Illness HPI Narrative: Patient presents as a ground level fall now experiencing left lower extremity pain, particularly at the mid/proximal left thigh. She was using her walker down a narrow path and twisted and fell, landing on her left hlpe. She is on Xarelto for a history of atrial fibrillation for which she had a procedure Oct 2022, last dose was last night. She did not hit her head. She is having some paresthesias along the left anterior thigh. No syncope/LOC. Related Data Home Medications Medication Instructions Recorded Confirmed dapagliflozin propanediol 10 mg 10 mg PO DAILY 10/15/23 10/15/23 tablet (Farxiga) digoxin 125 mcg (0.125 mg) tablet 0.125 mg PO DAILY 10/15/23 10/15/23 furosemide 20 mg tablet 20 mg PO BID 10/15/23 10/15/23 insulin glargine 100 unit/mL (3 7 unit subcut DAILY 10/15/23 10/15/23 mL) subcutaneous pen (Lantus Solostar U-100 Insulin) insulin lispro 100 unit/mL 10 unit subcut AC 10/15/23 10/15/23 subcutaneous pen losartan 50 mg tablet 50 mg PO DAILY 10/15/23 10/15/23 methimazole 5 mg tablet 5 mg PO DAILY 10/15/23 10/15/23 metoprolol succinate 50 mg 50 mg PO BID 10/15/23 10/15/23 tablet,extended release 24 hr rivaroxaban 20 mg tablet (Xarelto) 20 mg PO DAILY 10/15/23 10/15/23 spironolactone 25 mg tablet 25 mg PO DAILY 10/15/23 10/15/23 Allergies Allergy/AdvReac Type Severity Reaction Status Date / Time estrogens, conjugated Allergy Unknown Other Verified 10/31/22 09:13 [facility] Past Medical History Medical History (Updated 10/16/23 @ 12:16 by Allison Barger MD) Essential hypertension Hyperthyroidism Intertrochanteric fracture of left hip Type 2 diabetes mellitus with hyperglycemia Surgical History Surgical History History of dental surgery History of tonsillectomy Family History Family History Father Hypertension Family history of malignant neoplasm Mother Hypertension Cerebrovascular accident Grandparent Family history of cardiovascular disease Other Family history of atrial fibrillation Family history of thyroid disease Social History Social History Social History: The patient lives with her and they have one child. 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 She is a lifelong nonsmoker. She denies any alcohol marijuana or illicit drugs. Her is a durable power insurance defense attorney for healthcare. Code status full code Smoking status: Never smoker Second hand tobacco smoke exposure: No Alcohol intake: never Substance use: never Substance use type: does not use Lack of Transportation: No Lack of Food: Never True Current Housing: I Have Housing Concerned About Future Housing: No Difficulty Paying Gas/Electric Bills: No Difficulty Paying for Meds: No Currently Unemployed: No Education: High School Diploma/GED Difficulty w/ Childcare or Family Care: No Spiritual care concerns: No Exam Narrative: GENERAL: Well-appearing, well-nourished, in acute distress, shaky with pain. HEAD: Normocephalic, atraumatic. EYES: Non injected, non icteric ENT: Nares clear, no rhinorrhea or epistaxis. NECK: Supple. CHEST: Speaking in full sentences. No respiratory distress. HEART: Regular rate and rhythm. Bilateral lower extremities cool but symmetric. . ABDOMEN: Soft, nondistended. Non tender to palpation. EXTREMITIES: No TTP of pelvis compression. No bony abnormalities/crepitus but patient does have TTP at left mid/proximal thigh. No edema. SKIN: Warm, dry, no rash. NEURO: No focal deficits. Alert and oriented x3. PSYCH: Normal mood and affect. Course Vital Signs Vital signs: Vi
[2023-10-14] MEDS: ACETAMINOPHEN 325 MG TABLET 650 MG PO (20:00)
[2023-10-14] MEDS: HYDROcodone/acetaminophen (*CRX) 5-325 MG TABLET 1 TAB PO (20:00)
[2023-10-14 20:48] LABS: Basophils Absolute Auto 0.1 K/mm3 (0.0-0.1); Basophils Percent Auto 0.5 % (0.2-1.2); Eosinophils Absolute Auto 0.4 K/mm3 (0-0.3); Eosinophils Percent Auto 2.7 % (0-4.4); Immature Granulocyte Absolute 0.06 K/mm3 (0.00-0.031); Immature Granulocyte Percent A 0.5 % (0-0.5); Lymphocytes Absolute Auto 3.06 K/mm3 (0.9-3.2); Lymphocytes Percent Auto 23.9 % (18.3-44.2); Mean Corpuscular Hemoglobin 24.7 pg (26-34); Mean Corpuscular Volume 82.2 fl (80-100); Mean Platelet Volume 9.6 fl (7.4-10.4); Monocytes Absolute Auto 1.3 K/mm3 (0.1-0.6); Monocytes Percent Auto 9.8 % (2.6-8.5); Neutrophils Percent Auto 62.6 % (45.5-73.1); Platelet Count Result 511 k/mm3 (150-375); Red Blood Count 3.65 M/mm3 (4.2-5.4); Red Cell Distribution Width 14.8 % (11.5-14.5); White Blood Count 12.8 K/mm3 (4.5-10.0)
[2023-10-14 21:00] LABS: INR 1.1; Partial Thromboplastin Time 31.8 SECONDS (22.3-36.8); Prothrombin Time 14.7 Seconds (11.1-14.7)
[2023-10-14 21:02] LABS: Alanine Aminotransferase 17 U/L (6-35); Albumin Level 4.1 g/dL (3.5-5.1); Alkaline Phosphatase 126 U/L (38-126); Anion Gap 10 mmol/L (8-16); Aspartate Amino Transferase 22 U/L (14-36); Bilirubin,Total 0.4 mg/dL (0.2-1.3); Blood Urea Nitrogen 40 mg/dL (7-17); Calcium 9.2 mg/dL (8.4-10.2); Carbon Dioxide 25 mmol/L (22-30); Chloride 103 mmol/L (98-107); Estimated Glomerular Filt Rate > 60; Glucose 187 mg/dL (65-110); Potassium 4.3 mmol/L (3.4-5.0); Sodium 138 mmol/L (137-145)
[2023-10-14] MEDS: MORPHINE SULFATE (*CRX) 4 MG/ML INJ IV PUSH (21:24)
--- NOTE | 2023-10-14 21:53 | ECG_ITS ---
Measurements Intervals [place] Rate: 101 P: 74 KS: 158 QRS: -50 QRSD: 90 T: 65 QT: 347 QTc: 451 Interpretive Statements SINUS TACHYCARDIA POSSIBLE LEFT ATRIAL ENLARGEMENT [-0.1mV P-WAVE IN V1/V2] LEFT AXIS DEVIATION [QRS AXIS < -30] ANTEROSEPTAL MYOCARDIAL INFARCTION , OF INDETERMINATE AGE [40+ ms Q WAVE IN V1-V4] COMPARED TO ECG 10/31/2022 15:52:35 SINUS TACHYCARDIA NOW PRESENT Electronically Signed On 10-15-2023 13:26:46 [employer] by Harmony Musa M.D.
[2023-10-14 21:55] VITALS: BP 128/60; PULSE 73; RESP 22; O2SAT 96
[2023-10-14] MEDS: LACTATED RINGERS 1,000 ML 100 ML IV CONT (22:29)
[2023-10-14 23:10] VITALS: BP 123/56; PULSE 92; RESP 16; TEMP 36.6; O2SAT 99
[2023-10-14 23:11] LABS: Influenza A QL RT-PCR Negative (Negative); Influenza B QL RT-PCR Negative (Negative); SARS-CoV-2 RNA PCR Negative (Negative)
[2023-10-15] VITALS (8 sets, daily range): BP systolic 114–163; BP diastolic 56–71; PULSE 67–93; RESP 16–20; TEMP 36.6–37.5; O2SAT 95–100; BMI 22.8
--- NOTE | 2023-10-15 01:47 | PC.NURSE ---
called to verify medication, no answer.
--- NOTE | 2023-10-15 02:01 | PC.NURSE ---
This patient, Zeferino Roberts, was admitted to 3 [facility] Surg Room 307-02. Patient/family oriented to hospital policies and general routines including ID bracelet, bed and alarms, visiting hours, pain management, procedures, bathroom and other care routines, personal items, smoking policy, room service/diet, and visiting hours. Information on how to activate the Rapid Response Team has been discussed. Patient/Family are encouraged to report perceived risks to care and to ask questions if they do not understand what they are told or what they should do.
--- NOTE | 2023-10-15 02:08 | PC.NURSE ---
patient unsure of medications and doses of medication
[2023-10-15] MEDS: HYDROcodone/acetaminophen (*CRX) 5-325 MG TABLET 1 TAB PO ×4 (02:09→19:55)
--- NOTE | 2023-10-15 06:58 | PC.NURSE ---
attempted to call phone to clarify medication unable phone sounds like a fax machine. No answer. unable to verify patient medication.
--- NOTE | 2023-10-15 07:02 | PC.NURSE ---
spoke with Joann family to bring medication back in to verify medication with nurse today on day shift. Patient does not know doses and was unable to clarify with .
--- NOTE | 2023-10-15 07:28 | PM.CNOR ---
Assessment and Plan Assessment and plan (1) Intertrochanteric fracture of left hip: Qualifiers: Encounter type: initial encounter Fracture type: closed Fracture alignment: displaced Qualified Code(s): S72.142A - Displaced intertrochanteric fracture of left femur, initial encounter for closed fracture Code(s): S72.142A - Displaced intertrochanteric fracture of left femur, initial encounter for closed fracture Status: Acute Plan 68-year-old female with an unstable left IT hip fracture. I discussed the injury with the patient. Surgery is my recommendation. Risks and potential complications were discussed in detail and questions answered. Does have multiple medical issues that will need to be delineated prior to proceeding. Not plan on going today. I will be in contact with hospitalist group to figure out best possible timing for this procedure. Chest x-ray raised the possibility of a right-sided lung mass. She also has become significantly anemic when compared to last winter. Thank you for the consultation. History of Present Illness HPI Consult date: 10/15/23 Consult reason: fracture Chief complaint: L Intertrochanteric Fracture Narrative: 68-year-old female who fell after getting out of her truck yesterday. She suffered intertrochanteric fracture. She does use a walker as a gait aid. She has had over the course of the past year and a half for so a gradual course steady decline. After cardioversion procedure last winter she said that she never fully bounced back. She does articulate pain in the left hip area. No other apparent injury with this occurrence. Review of Systems Constitutional: Constitutional: Reports fatigue Eyes: Eyes: Reports no additional eye complaints ENT: Reports system reviewed and no additional complaints, except as documented Cardiovascular: Cardiovascular: Denies chest pain at rest and Denies dyspnea Respiratory: Respiratory: Reports no additional respiratory complaints and Denies dyspnea Gastrointestinal: Gastrointestinal: Reports no additional gastrointestinal complaints Musculoskeletal: Musculoskeletal: Reports as per HPI Integumentary/Breasts: Skin/Breast: Reports system reviewed and no additional complaints, except as docu Endocrine: Endocrine: Denies fatigue Hematologic/Lymphatic: Hematologic/Lymphatic: Denies easy bleeding and Denies easy bruising PMFSH Past Medical History Medical History (Updated 10/15/23 @ 07:33 by Zeferino Hdez MD) Essential hypertension Hyperthyroidism Intertrochanteric fracture of left hip Type 2 diabetes mellitus with hyperglycemia Surgical History Surgical History History of dental surgery History of tonsillectomy Family History Family History Father Hypertension Family history of malignant neoplasm Mother Hypertension Cerebrovascular accident Grandparent Family history of cardiovascular disease Other Family history of atrial fibrillation Family history of thyroid disease Social History Social History Social History: The patient lives with her and they have one child. 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 She is a lifelong nonsmoker. She denies any alcohol marijuana or illicit drugs. Her is a durable power ip technology transactions attorney for healthcare. Code status full code Smoking status: Never smoker Second hand tobacco smoke exposure: No Alcohol intake: never Substance use: never Substance use type: does not use Lack of Transportation: No Lack of Food: Never True Current Housing: I Have Housing Concerned About Future Housing: No Difficulty Paying Gas/Electric Bills: No Difficulty Paying for Meds: No Currently Unemployed: No Education: High School Diploma/GED Difficulty w/ Childcare or Family Care: No Spiritual care concerns: No Me
--- NOTE | 2023-10-15 08:52 | PM.IMHP ---
H&P: HPI History of Present Illness Date/Time: 10/15/23 08:52 Chief Complaint: Hip pain Narrative: 68-year-old female with history of congestive heart failure, thyrotoxicosis from hyperthyroidism, diabetes is presenting with hip pain and found to have an unstable intertrochanteric fracture of the left hip after falling while getting out of her truck. Orthopedics have been consulted and are recommending the OR. Patient will need to be medically cleared. No chest pain or shortness of breath. No nausea, vomiting or diarrhea. No fevers or chills. Review of Systems Review of Systems: 12 point review of systems was assessed and was negative except as noted in the HPI [facility] Past Medical History Medical History (Updated 10/15/23 @ 08:56 by Daiana Jansen DO) Essential hypertension Hyperthyroidism Intertrochanteric fracture of left hip Type 2 diabetes mellitus with hyperglycemia Surgical History Surgical History History of dental surgery History of tonsillectomy Family History Family History Father Hypertension Family history of malignant neoplasm Mother Hypertension Cerebrovascular accident Grandparent Family history of cardiovascular disease Other Family history of atrial fibrillation Family history of thyroid disease Social History Social History Social History: The patient lives with her and they have one child. 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 She is a lifelong nonsmoker. She denies any alcohol marijuana or illicit drugs. Her is a durable power associate attorney for healthcare. Code status full code Smoking status: Never smoker Second hand tobacco smoke exposure: No Alcohol intake: never Substance use: never Substance use type: does not use Lack of Transportation: No Lack of Food: Never True Current Housing: I Have Housing Concerned About Future Housing: No Difficulty Paying Gas/Electric Bills: No Difficulty Paying for Meds: No Currently Unemployed: No Education: High School Diploma/GED Difficulty w/ Childcare or Family Care: No Spiritual care concerns: No Meds Home Medications and Allergies Home Medications Medication Instructions Recorded Confirmed Type dapagliflozin propanediol 10 mg 10 mg PO DAILY 10/15/23 10/15/23 History tablet (Farxiga) digoxin 125 mcg (0.125 mg) tablet 0.125 mg PO DAILY 10/15/23 10/15/23 History furosemide 20 mg tablet 20 mg PO BID 10/15/23 10/15/23 History insulin glargine 100 unit/mL (3 7 unit subcut DAILY 10/15/23 10/15/23 History mL) subcutaneous pen (Lantus Solostar U-100 Insulin) insulin lispro 100 unit/mL 10 unit subcut AC 10/15/23 10/15/23 History subcutaneous pen losartan 50 mg tablet 50 mg PO DAILY 10/15/23 10/15/23 History methimazole 5 mg tablet 5 mg PO DAILY 10/15/23 10/15/23 History metoprolol succinate 50 mg 50 mg PO BID 10/15/23 10/15/23 History tablet,extended release 24 hr rivaroxaban 20 mg tablet (Xarelto) 20 mg PO DAILY 10/15/23 10/15/23 History spironolactone 25 mg tablet 25 mg PO DAILY 10/15/23 10/15/23 History Allergies Allergy/AdvReac Type Severity Reaction Status Date / Time estrogens, conjugated Allergy Unknown Other Verified 10/31/22 09:13 Vital Signs Vital Signs - 24 hr 10/14/23 19:46 10/14/23 21:55 10/14/23 23:10 Temperature 98.5 F 97.9 F Pulse Rate 81 73 92 Respiratory Rate 20 22 H 16 Blood Pressure 137/41 L 128/60 123/56 L Pulse Oximetry 99 96 99 Oxygen Delivery Room Air 10/15/23 01:22 10/15/23 02:19 10/15/23 02:17 Temperature 98 F Pulse Rate 67 90 Respiratory Rate 16 20 Blood Pressure 133/71 129/57 L Pulse Oximetry 95 96 98 Oxygen Delivery Room Air 10/15/23 05:51 Temperature 97.9 F Pulse Rate 87 Respiratory Rate 20 Blood Pressure 114/58 L Pulse Oximetry 95 Oxygen Delivery
[2023-10-15 09:31] LABS: Basophils Absolute Auto 0.1 K/mm3 (0.0-0.1); Basophils Percent Auto 0.5 % (0.2-1.2); Eosinophils Absolute Auto 0.2 K/mm3 (0-0.3); Eosinophils Percent Auto 1.7 % (0-4.4); Hematocrit 26.8 % (37.0-47.0); Immature Granulocyte Absolute 0.05 K/mm3 (0.00-0.031); Immature Granulocyte Percent A 0.4 % (0-0.5); Lymphocytes Absolute Auto 2.19 K/mm3 (0.9-3.2); Lymphocytes Percent Auto 17.4 % (18.3-44.2); Mean Corpuscular HGB Conc 29.9 g/dl (32-36); Mean Corpuscular Hemoglobin 25.1 pg (26-34); Mean Platelet Volume 9.8 fl (7.4-10.4); Monocytes Absolute Auto 1.4 K/mm3 (0.1-0.6); Monocytes Percent Auto 11.4 % (2.6-8.5); Neutrophils Absolute Auto 8.6 K/mm3 (1.3-6.7); Neutrophils Percent Auto 68.6 % (45.5-73.1); Nucleated Red Blood Cells Perc 0.2 % (0.0-0.2); Platelet Count Result 437 k/mm3 (150-375); Red Blood Count 3.19 M/mm3 (4.2-5.4); Red Cell Distribution Width 15.1 % (11.5-14.5); White Blood Count 12.6 K/mm3 (4.5-10.0)
[2023-10-15 09:42] LABS: Alanine Aminotransferase 16 U/L (6-35); Albumin Level 3.9 g/dL (3.5-5.1); Alkaline Phosphatase 117 U/L (38-126); Anion Gap 11 mmol/L (8-16); Aspartate Amino Transferase 22 U/L (14-36); Bilirubin,Total 0.5 mg/dL (0.2-1.3); Blood Urea Nitrogen 39 mg/dL (7-17); Calcium 8.7 mg/dL (8.4-10.2); Carbon Dioxide 21 mmol/L (22-30); Chloride 107 mmol/L (98-107); Estimated CRCL calculation 53 ml/min; Estimated Glomerular Filt Rate > 60; Glucose 221 mg/dL (65-110); Potassium 4.5 mmol/L (3.4-5.0); Sodium 139 mmol/L (137-145)
[2023-10-15 10:02] LABS: Troponin I < 0.012 ng/mL (0.000-0.034)
[2023-10-15 10:21] LABS: Iron 13 ug/dL (37-170)
[2023-10-15 10:43] LABS: Percent Iron Saturation 3 % (20-50)
[2023-10-15 11:32] LABS: Thyroid Stimulating Hormone < 0.015 uIU/mL (0.465-4.680)
[2023-10-15 12:10] LABS: Folic Acid 7.9 ng/mL (2.76->20)
[2023-10-15 12:15] LABS: Glucose Point of Care 216 mg/dl (65-105)
[2023-10-15] MEDS: INSULIN ASPART (*BKC) 100 UNITS/ML 10 UNITS SUB-Q (12:27)
[2023-10-15 12:40] LABS: Hemoglobin A1C 7.3 % (<5.7)
[2023-10-15] MEDS: LACTATED RINGERS 1,000 ML 100 ML IV CONT (15:21)
[2023-10-15 16:39] LABS: Glucose Point of Care 128 mg/dl (65-105)
[2023-10-15] MEDS: FUROSEMIDE 20 MG TABLET PO (17:22)
[2023-10-15] MEDS: METOPROLOL SUCCINATE EXT REL 50 MG TABCR PO (19:56)
[2023-10-15] MEDS: MORPHINE SULFATE (*CRX) 4 MG/ML INJ IV PUSH (23:46)
[2023-10-16] VITALS (8 sets, daily range): BP systolic 154–162; BP diastolic 62–78; PULSE 90–105; RESP 14–18; TEMP 36.8–38.6; O2SAT 95–99
--- NOTE | 2023-10-16 | ECHO_ITS ---
Patient Info Name: Zeferino Roberts Age: 68 years : 1955 Gender: Female Ht: 65 in Wt: 136 lbs BSA: 1.69 m2 HR: 96 bpm BP: 154 / 62 mmHg Heart Rhythm: Sinus Rhythm Technical Quality: Fair Exam Date: 10/16/2023 10:48 AM Exam Location: Echo Lab Exam Room: 307 Patient Status: Inpatient Admit Date: 10/14/2023 Staff Ordering Physician: Daiana Jansen DO [employer]strategy Bi Developer: Elena Lauren RDCS Attending Provider: Lianet Zelaya DO Referring Physician: Justyna CLEVELAND; Exam Type: CA echo doppler color flow Study Info Indications - sob Complete two-dimensional, color flow and Doppler transthoracic echocardiogram is performed. Summary 1. Complete two-dimensional, color flow and Doppler transthoracic echocardiogram is performed. 2. Left ventricular chamber dimension is normal. 3. Left ventricular systolic function is hyperdynamic, estimated at >70%. 4. There is mildly increased left ventricular wall thickness. 5. The left ventricular diastolic function is grade I diastolic dysfunction. 6. Right ventricular systolic function is normal. 7. Left atrial chamber dimension is mildly enlarged. 8. Right atrial chamber dimension is mildly enlarged. 9. There is mild tricuspid valve regurgitation. Left Ventricle Left ventricular chamber dimension is normal. Left ventricular systolic function is hyperdynamic, estimated at >70%. There is mildly increased left ventricular wall thickness. The left ventricular diastolic function is grade I diastolic dysfunction. Right Ventricle Right ventricular chamber dimension is normal. Right ventricular systolic function is normal. Left Atria Left atrial chamber dimension is mildly enlarged. Right Atria Right atrial chamber dimension is mildly enlarged. Atrial Septum Intact interatrial septum visualized by color flow imaging. Aortic Valve The aortic valve is trileaflet. There is mild aortic valve sclerosis. There is no aortic valve stenosis. There is no aortic valve regurgitation. Pulmonic Valve The pulmonic valve is not well visualized. There is trace pulmonic regurgitation. Mitral Valve There is trace mitral valve regurgitation. Tricuspid Valve There is mild tricuspid valve regurgitation. Pericardium/Pleural There is no pericardial effusion. Inferior Vena Cava Normal inferior vena cava with >50% collapse upon inspiration consistent with normal right atrial pressure, 3 mmHg. Aorta The aortic root size at the sinus of Valsalva is normal. Left Ventricular Outflow Tract Name Value Normal LVOT 2D LVOT Diameter 2.0 cm LVOT Doppler LVOT Peak Gradient 7 mmHg LVOT Mean Gradient 4 mmHg LVOT VTI 25 cm LVOT VTI/AV VTI Ratio 0.7 LVOT Stroke Volume 74 ml LVOT CO 17.5 l/min LVOT CI 10.4 l/min/m2 Pulmonic Valve Name Value Normal PV Doppler
[2023-10-16] MEDS: MORPHINE SULFATE (*CRX) 4 MG/ML INJ IV PUSH ×3 (05:50→16:36)
[2023-10-16 06:10] LABS: Basophils Absolute Auto 0.1 K/mm3 (0.0-0.1); Basophils Percent Auto 0.6 % (0.2-1.2); Eosinophils Absolute Auto 0.3 K/mm3 (0-0.3); Eosinophils Percent Auto 2.4 % (0-4.4); Hematocrit 27.5 % (37.0-47.0); Immature Granulocyte Absolute 0.06 K/mm3 (0.00-0.031); Immature Granulocyte Percent A 0.4 % (0-0.5); Lymphocytes Percent Auto 19.9 % (18.3-44.2); Mean Corpuscular HGB Conc 29.1 g/dl (32-36); Mean Corpuscular Hemoglobin 24.3 pg (26-34); Mean Corpuscular Volume 83.6 fl (80-100); Mean Platelet Volume 9.7 fl (7.4-10.4); Monocytes Absolute Auto 1.7 K/mm3 (0.1-0.6); Neutrophils Absolute Auto 9.1 K/mm3 (1.3-6.7); Neutrophils Percent Auto 64.7 % (45.5-73.1); Platelet Count Result 403 k/mm3 (150-375); Red Blood Count 3.29 M/mm3 (4.2-5.4); Red Cell Distribution Width 15.2 % (11.5-14.5); White Blood Count 14.1 K/mm3 (4.5-10.0)
[2023-10-16 06:20] LABS: Alanine Aminotransferase 16 U/L (6-35); Albumin Level 4.1 g/dL (3.5-5.1); Alkaline Phosphatase 114 U/L (38-126); Anion Gap 10 mmol/L (8-16); Aspartate Amino Transferase 21 U/L (14-36); Bilirubin,Total 0.7 mg/dL (0.2-1.3); Blood Urea Nitrogen 23 mg/dL (7-17); Calcium 8.9 mg/dL (8.4-10.2); Carbon Dioxide 22 mmol/L (22-30); Chloride 104 mmol/L (98-107); Cholesterol 149 mg/dL (0-200); Estimated CRCL calculation 70 ml/min; Estimated Glomerular Filt Rate > 60; Glucose 173 mg/dL (65-110); HDL Direct 39 mg/dL; Potassium 4.1 mmol/L (3.4-5.0); Sodium 136 mmol/L (137-145); Triglycerides 130 mg/dL (<150)
[2023-10-16 06:29] LABS: LDL Cholesterol Direct 80 mg/dL
[2023-10-16 06:58] LABS: Glucose Point of Care 164 mg/dl (65-105)
[2023-10-16 07:31] LABS: Glucose Point of Care 175 mg/dl (65-105)
[2023-10-16 08:22] LABS: Digoxin < 0.5 ng/mL (0.8-2.0)
[2023-10-16 08:58] LABS: Thyroid Stimulating Hormone Reflex < 0.015 uIU/mL (0.465-4.68)
[2023-10-16 10:01] LABS: Free T4 Free Thyroxine Reflex 1.64 ng/dL (0.78-2.19)
[2023-10-16] MEDS: METOPROLOL SUCCINATE EXT REL 50 MG TABCR PO ×2 (10:03→20:47)
[2023-10-16] MEDS: methiMAzole 5 MG TAB PO (10:03)
[2023-10-16] MEDS: DIGOXIN TAB 125 MCG TABLET PO (10:04)
[2023-10-16] MEDS: LOSARTAN POTASSIUM 50 MG TABLET PO (10:04)
[2023-10-16] MEDS: FUROSEMIDE 20 MG TABLET PO ×2 (10:04→16:32)
[2023-10-16] MEDS: SPIRONOLACTONE 25 MG TABLET PO (10:04)
[2023-10-16] MEDS: EMPAGLIFLOZIN 25 MG TABLET BY MOUTH (10:04)
[2023-10-16 10:56] LABS: Total Triiodothyronine (T3) 1.63 NG/ML (0.97-1.69)
[2023-10-16 11:19] LABS: Glucose Point of Care 156 mg/dl (65-105)
--- NOTE | 2023-10-16 13:33 | PM.CNCAR ---
Assessment and Plan Assessment and plan (1) Intertrochanteric fracture of left hip: Qualifiers: Encounter type: initial encounter Code(s): S72.142A - Displaced intertrochanteric fracture of left femur, initial encounter for closed fracture Status: Acute Assessment and Plan: Patient is stable from a cardiac standpoint without active cardiac issues. No further cardiac workup is required prior to surgery. Recommend to continue her Metoprolol throughout the perioperative period. Xarelto is currently on hold -- recommend to resume when safe to do so from a surgical standpoint (2) Heart failure with recovered ejection fraction (HFrecEF): Code(s): I50.32 - Chronic diastolic (congestive) heart failure Status: Acute Assessment and Plan: Her ejection fraction has normalized. Continue with her home heart failure regimen. (3) Paroxysmal atrial fibrillation: Code(s): I48.0 - Paroxysmal atrial fibrillation Status: Acute Assessment and Plan: In sinus rhythm. Continue Metoprolol. Xarelto is currently on hold -- recommend to resume when safe to do so from a surgical standpoint History of Present Illness History of Present Illness Consult date/time: 10/16/23 13:33 Requesting physician: Daiana Jansen, Consult reason: Other (Preoperative cardiac risk assessment ) Reason For Visit: L Intertrochanteric Fracture Narrative: We are consulted for preoperative cardiac evaluation prior to surgery for left intertrochanteric hip fracture. 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 She was last seen by our group in October 2022 where she had severe untreated hyperthyroidism resulting in atrial fibrillation and cardiomyopathy with an LVEF of 15-20%. She was transferred to a tertiary center for Endocrinology evaluation. Her primary otolaryngology teacher is Dr. Coleman, who she last saw in June 2023. Her LVEF has improved to 60% with medical management and treatment of AFIB and hyperthyroidism. She currently denies any cardiac complaints. EKG shows sinus tachycardia, cannot rule out septal infarct. No ischemic changes. Review of Systems Review of Systems: All systems reviewed & are unremarkable except as noted in HPI and below (HPI) [facility] Past Medical History Medical History Essential hypertension Hyperthyroidism Intertrochanteric fracture of left hip Type 2 diabetes mellitus with hyperglycemia Surgical History Surgical History History of dental surgery History of tonsillectomy Family History Family History Father Hypertension Family history of malignant neoplasm Mother Hypertension Cerebrovascular accident Grandparent Family history of cardiovascular disease Other Family history of atrial fibrillation Family history of thyroid disease Social History Social History Social History: The patient lives with her and they have one child. 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 She is a lifelong nonsmoker. She denies any alcohol marijuana or illicit drugs. Her is a durable power family law attorney for healthcare. Code status full code Smoking status: Never smoker Second hand tobacco smoke exposure: No Alcohol intake: never Substance use: never Substance use type: does not use Lack of Transportation: No Lack of Food: Never True Current Housing: I Have Housing Concerned About Future Housing: No Difficulty Paying Gas/Electric Bills: No Difficulty Paying for Meds: No Currently Unemployed: No Education: High School Diploma/GED Difficulty w/ Childcare or Family Care: No Spiritual care concerns: No
[2023-10-16 14:10] LABS: Glucose Point of Care 150 mg/dl (65-105)
--- NOTE | 2023-10-16 14:23 | WPDANESEPPF ---
Anes - Initial Pre Proc Eval Procedure: Operation Date: 10/16/23 15:00 Proposed Procedures p Left Intertrochanteric Nail - Zeferino Hdez MD Date/Time: 10/16/23 14:23 Surgeon: Lianet Zelaya DO Pre Op Diagnosis: L Intertrochanteric Fracture Patient Data Age: 68 Gender: F Height: 1.65 m Weight: 62.1 kg Last Vital Signs Temp 37.0 C 10/16/23 06:00 Pulse 95 10/16/23 10:04 Resp 18 10/16/23 06:00 BP 154/62 H 10/16/23 06:00 Pulse Ox 95 10/16/23 08:30 O2 Del Method Room Air 10/16/23 08:30 Allergies Allergy/AdvReac Type Severity Reaction Status Date / Time estrogens, conjugated Allergy Unknown Other Verified 10/31/22 09:13 Home Medications Medication Instructions Recorded Confirmed Type dapagliflozin propanediol 10 mg 10 mg PO DAILY 10/15/23 10/15/23 History tablet (Farxiga) digoxin 125 mcg (0.125 mg) tablet 0.125 mg PO DAILY 10/15/23 10/15/23 History furosemide 20 mg tablet 20 mg PO BID 10/15/23 10/15/23 History insulin glargine 100 unit/mL (3 7 unit subcut DAILY 10/15/23 10/15/23 History mL) subcutaneous pen (Lantus Solostar U-100 Insulin) insulin lispro 100 unit/mL 10 unit subcut AC 10/15/23 10/15/23 History subcutaneous pen losartan 50 mg tablet 50 mg PO DAILY 10/15/23 10/15/23 History methimazole 5 mg tablet 5 mg PO DAILY 10/15/23 10/15/23 History metoprolol succinate 50 mg 50 mg PO BID 10/15/23 10/15/23 History tablet,extended release 24 hr rivaroxaban 20 mg tablet (Xarelto) 20 mg PO DAILY 10/15/23 10/15/23 History spironolactone 25 mg tablet 25 mg PO DAILY 10/15/23 10/15/23 History Laboratory Tests 10/15/23 10/16/23 10/16/23 16:34 05:48 06:18 WBC 14.1 H K/mm3 (4.5-10.0) RBC 3.29 L M/mm3 (4.2-5.4) Hgb 8.0 L g/dL (12.0-15.0) Hct 27.5 L % (37.0-47.0) MCV 83.6 fl (80-100) MCH 24.3 L pg (26-34) MCHC 29.1 L g/dl (32-36) RDW 15.2 H % (11.5-14.5) Plt Count 403 H k/mm3 (150-375) MPV 9.7 fl (7.4-10.4) Immature Gran % (Auto) 0.4 % (0-0.5) Neut % (Auto) 64.7 % (45.5-73.1) Lymph % (Auto) 19.9 % (18.3-44.2) Long % (Auto) 12.0 H % (2.6-8.5) Eos % (Auto) 2.4 % (0-4.4) Baso % (Auto) 0.6 % (0.2-1.2) Lymph # (Auto) 2.80 K/mm3 (0.9-3.2) Long # (Auto) 1.7 H K/mm3 (0.1-0.6) Eos # (Auto) 0.3 K/mm3 (0-0.3) Baso # (Auto) 0.1 K/mm3 (0.0-0.1) Abs Immat Gran (auto) 0.06 H K/mm3 (0.00-0.031) Absolute Neuts (auto) 9.1 H K/mm3 (1.3-6.7) Absolute Nucleated RBC 0.0 K/mm3 (0.0-0.012) Nucleated RBC % 0.0 % (0.0-0.2) Sodium 136 L mmol/L (137-145) Potassium 4.1 mmol/L (3.4-5.0) Chloride 104 mmol/L (98-107) Carbon Dioxide 22 mmol/L (22-30) Anion Gap 10 mmol/L (8-16) BUN 23 H D mg/dL (7-17) Creatinine 0.60 L mg/dL (0.7-1.0) Estim Creat Clear Calc 70 ml/min Estimated GFR > 60 (59 - ) Glucose 173 H mg/dL (65-110) POC Capillary Glucose 128 H mg/dl 164 H mg/dl (65-105) (65-105) Calcium 8.9 mg/dL (8.4-10.2) Total Bilirubin 0.7 mg/dL (0.2-1.3) AST 21 U/L (14-36) ALT 16 U/L (6-35) Alkaline Phosphatase 114 U/L (38-126) Total Protein 7.0 g/dL (6.3-8.2) Albumin 4.1 g/dL (3.5-5.1) Triglycerides 130 mg/dL (<150) Cholesterol 149 mg/dL (0-200) LDL Cholesterol Direct 80 mg/dL HDL Direct 39 mg/dL TSH (Reflex) < 0.015 L uIU/mL (0.465-4.68) Free T4 1.64 ng/dL (0.78-2.19) Total T3 1.63 NG/ML (0.97-1.69) Digoxin < 0.5 L ng/mL (0.8-2.0) 10/16/23 10/16/23 10/16/23 07:26 11:14 14:05 WBC RBC
--- NOTE | 2023-10-16 14:26 | SUR.PREOP ---
1425-Spoke with Dr. Hdez regarding elevated temperature (101.2) and afebrile history documentation. He will be in to evaluate pt.
--- NOTE | 2023-10-16 14:45 | SUR.PREOP ---
1435-Dr. Hdez here, evaluated pt, surgery canceled.
--- NOTE | 2023-10-16 14:54 | WPDHPUPDATE1 ---
History and Physical Update Update Date/Time: 10/16/23 14:54 Patient febrile (101.2, 101.5) in preop area. Checked multiple times. Surgery canceled today. Will treat for pneumonia in once afebrile plan proceeding with hip fracture repair. Discussed with the patient, her and daughter. Also discussed with hospitalist group.
--- NOTE | 2023-10-16 15:26 | PM.IMPN ---
Progress Note: A&P Assessment and Plan (1) Intertrochanteric fracture of left hip: Qualifiers: Encounter type: initial encounter Code(s): S72.142A - Displaced intertrochanteric fracture of left femur, initial encounter for closed fracture Status: Acute Assessment and Plan: Patient with hip pain after a fall. Imaging shows IT fracture of the proximal left femur. Patient has been cleared by Cardiology for procedure. Appreciate orthopedic consultation Surgery was held because patient developed fever. (2) Pneumonia: Code(s): J18.9 - Pneumonia, unspecified organism Status: Acute Assessment and Plan: Chest x-ray shows mild pulmonary edema as well as airspace opacities in the right mid and lower lung zones. This prompted a CT of the chest which showed patchy consolidation probably ground-glass attenuation right middle lobe and inferior right upper lobe. Was felt this was probably pneumonia over edema. Patient is asymptomatic. No cough or shortness of breath. White count is elevated and now having fevers. Will check blood cultures. Start Rocephin and doxycycline (3) Paroxysmal atrial fibrillation: Code(s): I48.0 - Paroxysmal atrial fibrillation Status: Acute Assessment and Plan: Patient has a history of paroxysmal AFib. She is on metoprolol and Digoxin for rate control. These has been continued. She is on Xarelto as well. Xarelto on hold. Resume Xarelto when okay with surgery. Digoxin level <0.5 (4) Congestive heart failure: Code(s): I50.9 - Heart failure, unspecified Status: Acute Assessment and Plan: Patient with known systolic CHF with EF 15-20% last year. Cardiology consulted and has cleared the patient for surgery. EKG showed sinus tachycardia (101), left axis deviation and anterior septal myocardial infarct age indeterminate. Echocardiogram showing EF greater than 70% with grade 1 diastolic dysfunction. Monitor fluid status closely. (5) Type 2 diabetes mellitus with hyperglycemia: Qualifiers: Diabetes mellitus detention insulin use: unspecified detention insulin use status Qualified Code(s): E11.65 - Type 2 diabetes mellitus with hyperglycemia Code(s): E11.65 - Type 2 diabetes mellitus with hyperglycemia Status: Acute Assessment and Plan: The patient's blood glucose was reviewed on 10/16 Glucose remains well controlled. Continue AccuCheks covering with sliding scale. Hypoglycemia protocol available as needed. Continue to follow (6) Hyperthyroidism: Code(s): E05.90 - Thyrotoxicosis, unspecified without thyrotoxic crisis or storm Status: Acute Assessment and Plan: TSH <0.015 but FT4 and TT3 normal. Continue methimazole. (7) Essential hypertension: Code(s): I10 - Essential (primary) hypertension Status: Acute Assessment and Plan: Patient's blood pressure was reviewed on 10/16 Blood pressure remains reasonably well controlled. Will continue to follow (8) Anemia: Code(s): D64.9 - Anemia, unspecified Status: Acute Assessment and Plan: Hemoglobin 9.0 on admission and dropped to 8.0. B12 and folate levels normal. Iron studies consistent with iron deficiency anemia. Check stool guaiac Monitor H& H. Transfuse to a stable hemoglobin. Plan Incidental finding of compression fractures of T10, L1 and L2 age indeterminate but new from a year ago. Patient has back pain but this is improving over the past year suspected these vertebral fractures are chronic. DVT prophylaxis with SCDs GI prophylaxis not indicated Code status full code Subjective Date/time seen: 10/16/23 15:26 Interval history: 68-year-old female with DM, hypertension and hypothyroidism here for hip pain after a fall. Assuming care. Chart reviewed. Patient having pain in the left hip. She had been having low back pain over the past year but
[2023-10-16 16:29] LABS: Glucose Point of Care 133 mg/dl (65-105)
[2023-10-16] MEDS: LACTATED RINGERS 1,000 ML 50 ML IV CONT (16:33)
[2023-10-16 20:23] LABS: Glucose Point of Care 170 mg/dl (65-105)
[2023-10-16] MEDS: DOXYCYCLINE HYCLATE 100 MG TABLET PO (20:47)
[2023-10-16] MEDS: HYDROcodone/acetaminophen (*CRX) 5-325 MG TABLET 1 TAB PO (20:47)
[2023-10-17] VITALS (8 sets, daily range): BP systolic 117–136; BP diastolic 52–64; PULSE 92–100; RESP 15–16; TEMP 37–38.2; O2SAT 96–99
[2023-10-17] MEDS: MORPHINE SULFATE (*CRX) 4 MG/ML INJ IV PUSH (02:51)
[2023-10-17] MEDS: ACETAMINOPHEN 325 MG TABLET 650 MG PO (06:19)
[2023-10-17 06:33] LABS: Basophils Absolute Auto 0.1 K/mm3 (0.0-0.1); Basophils Percent Auto 0.3 % (0.2-1.2); Hematocrit 28.1 % (37.0-47.0); Hemoglobin 8.2 g/dL (12.0-15.0); Immature Granulocyte Absolute 0.24 K/mm3 (0.00-0.031); Immature Granulocyte Percent A 0.9 % (0-0.5); Lymphocytes Absolute Auto 2.11 K/mm3 (0.9-3.2); Lymphocytes Percent Auto 7.9 % (18.3-44.2); Mean Corpuscular HGB Conc 29.2 g/dl (32-36); Mean Corpuscular Hemoglobin 24.7 pg (26-34); Mean Corpuscular Volume 84.6 fl (80-100); Mean Platelet Volume 9.8 fl (7.4-10.4); Monocytes Absolute Auto 2.9 K/mm3 (0.1-0.6); Monocytes Percent Auto 10.7 % (2.6-8.5); Neutrophils Absolute Auto 21.4 K/mm3 (1.3-6.7); Neutrophils Percent Auto 80.2 % (45.5-73.1); Platelet Count Result 388 k/mm3 (150-375); Red Blood Count 3.32 M/mm3 (4.2-5.4); Red Cell Distribution Width 15.4 % (11.5-14.5); White Blood Count 26.7 K/mm3 (4.5-10.0)
[2023-10-17 07:33] LABS: Alanine Aminotransferase 13 U/L (6-35); Albumin Level 3.8 g/dL (3.5-5.1); Alkaline Phosphatase 105 U/L (38-126); Anion Gap 16 mmol/L (8-16); Aspartate Amino Transferase 18 U/L (14-36); Bilirubin,Total 0.8 mg/dL (0.2-1.3); Blood Urea Nitrogen 25 mg/dL (7-17); Calcium 8.9 mg/dL (8.4-10.2); Carbon Dioxide 18 mmol/L (22-30); Chloride 104 mmol/L (98-107); Estimated CRCL calculation 53 ml/min; Estimated Glomerular Filt Rate > 60; Glucose 157 mg/dL (65-110); Potassium 4.1 mmol/L (3.4-5.0); Sodium 138 mmol/L (137-145)
[2023-10-17 07:39] LABS: Hypochromasia 1+ (NORMAL); Platelet Estimate Adequate (Adequate); Schistocytes None Seen (NORMAL)
[2023-10-17 07:40] LABS: Anisocytosis 1+ (NORMAL); Burr Cells 1+ (NORMAL)
[2023-10-17 08:22] LABS: Glucose Point of Care 172 mg/dl (65-105)
[2023-10-17] MEDS: methiMAzole 5 MG TAB PO (10:07)
[2023-10-17] MEDS: SPIRONOLACTONE 25 MG TABLET PO (10:07)
[2023-10-17] MEDS: LOSARTAN POTASSIUM 50 MG TABLET PO (10:07)
[2023-10-17] MEDS: METOPROLOL SUCCINATE EXT REL 50 MG TABCR PO ×2 (10:08→21:48)
[2023-10-17] MEDS: ENOXAPARIN 40 MG/0.4 ML SYRINGE SUB-Q (10:08)
[2023-10-17] MEDS: EMPAGLIFLOZIN 25 MG TABLET BY MOUTH (10:08)
[2023-10-17] MEDS: DIGOXIN TAB 125 MCG TABLET PO (10:08)
[2023-10-17] MEDS: FUROSEMIDE 20 MG TABLET PO ×2 (10:08→16:31)
[2023-10-17] MEDS: DOXYCYCLINE HYCLATE 100 MG TABLET PO ×2 (10:08→21:48)
--- NOTE | 2023-10-17 10:41 | PM.PNORT ---
Progress Note: A&P Assessment and Plan (1) Intertrochanteric fracture of left hip: Qualifiers: Encounter type: subsequent encounter Fracture type: closed Fracture alignment: displaced Code(s): S72.142A - Displaced intertrochanteric fracture of left femur, initial encounter for closed fracture Status: Acute Plan 68-year-old female with a left IT hip fracture. Plan on holding off on surgery until medical status is better optimized. This will likely be this coming Saturday. Subjective Subjective Date/Time Seen: 10/17/23 10:41 Principal diagnosis: Left intertrochanteric hip fracture Interval history: 68-year-old female who has got an acute left hip fracture. For planning on surgery yesterday however started spiking fever and is going to be treated for her pneumonia before proceeding with surgery. Overnight it was noted that her white count went up pretty significantly. Blood cultures pending. Exam Const: General: cooperative and no acute distress Extrem: Other: Left lower extremity shortened and rotated. Grossly motor and sensory function intact but exam limited secondary to hip discomfort. Calves negative. Objective Data Vital Signs Vital Signs: Vital Signs - 24 hr 10/16/23 14:40 10/16/23 15:15 10/16/23 20:00 Temperature 101.4 F H 98.6 F Pulse Rate 97 90 Respiratory Rate 18 16 Blood Pressure 162/75 H Pulse Oximetry 98 99 Oxygen Delivery Room Air 10/16/23 21:43 10/17/23 06:00 10/17/23 06:19 Temperature 98.3 F 100.0 F H 100.7 F H Pulse Rate 105 H 100 Respiratory Rate 14 15 Blood Pressure 157/78 H 125/52 L Pulse Oximetry 96 96 Oxygen Delivery 10/17/23 10:08 10/17/23 10:08 Temperature Pulse Rate 92 92 Respiratory Rate Blood Pressure Pulse Oximetry Oxygen Delivery Intake/Output Intake/Output: Intake & Output 10/14/23 10/15/23 10/16/23 10/17/23 23:59 23:59 23:59 23:59 Intake Total 2225 / 2225 290 / 290 500 / 500 Output Total 1000 / 1000 4050 / 4050 1700 / 1700 Balance 1225 / 1225 -3760 / -3760 -1200 / -1200 Meds/Results Medications: Active Medications Generic Name Dose Route Start Last Admin Trade Name Freq PRN Reason Stop Dose Admin Acetaminophen 650 mg 10/14/23 22:11 10/17/23 06:19 Acetaminophen 325 Mg Tablet PO 650 mg Q4H PRN Administration Mild Pain (1-3) or Fever Hydrocodone Bitart/Acetaminophen 1 tab 10/14/23 22:11 10/16/23 20:47 Hydrocodone/Acetaminophen (*Crx) 5-325 Mg Tablet PO 1 tab Q4H PRN Administration Pain Rated 4-6 Digoxin 125 mcg 10/16/23 09:00 10/17/23 10:08 Digoxin Tab 125 Mcg Tablet PO 125 mcg DAILY FERNANDA Administration Doxycycline Hyclate 100 mg 10/16/23 21:00 10/17/23 10:08 Doxycycline Hyclate 100 Mg Tablet PO 10/23/23 09:01 100 mg Q12HR FERNANDA Administration Empagliflozin 25 mg 10/16/23 09:00 10/17/23 10:08 Empagliflozin 25 Mg Tablet BY MOUTH 25 mg DAILY FERNANDA Administration Enoxaparin Sodium 40 mg 10/17/23 09:00 10/17/23 10:08 Enoxaparin 40 Mg/0.4 Ml Syringe SUB-Q 40 mg DAILY FERNANDA Administration Fentanyl Citrate 25 mcg 10/16/23 14:22 Fentanyl Citrate Inj (*Crx) 100 Mcg/2 Ml Vial IV PUSH Q2M PRN Pain Furosemide 20 mg 10/15/23 17:00 10/17/23 10:08 Furosemide 20 Mg Tablet PO 20 mg BID FERNANDA Administration Lactated Ringer's 1,000 mls @ 30 mls/hr 10/16/23 14:25 10/16/23 15:47 Lr - Lactated Ringers Iv IV CONT Not Given .Q24H FERNANDA Lactated Ringer's 1,000 mls @ 30 mls/hr 10/16/23 14:25 10/16/23 15:47 Lr - Lactated Ringers Iv IV CONT Not Given .Q24H FERNANDA Ceftriaxone Sodium 1 gm in 50 mls @ 100 mls/hr 10/16/23 16:00 10/16/23 17:02 Rocephin 1 Gm/Ns 50 Ml IVPB Infused Q24H FERNANDA Infusion Lactated Ringer's 1,000 mls @ 50 mls/hr 10/16/23 16:10 10/16/23 16:33 Lr - Lactated Ringers Iv IV CONT 50 mls/hr .Q20H FERNANDA Administration Insulin Aspart 10 units 10/15/23 11:30 12
--- NOTE | 2023-10-17 11:41 | PM.IMPN ---
Progress Note: A&P Assessment and Plan (1) Intertrochanteric fracture of left hip: Qualifiers: Encounter type: subsequent encounter Fracture type: closed Fracture alignment: displaced Code(s): S72.142A - Displaced intertrochanteric fracture of left femur, initial encounter for closed fracture Status: Acute Assessment and Plan: Patient with hip pain after a fall. Imaging shows IT fracture of the proximal left femur. Patient was cleared by Cardiology for procedure but now having fevers so surgery on hold. Appreciate orthopedic consultation (2) Pneumonia: Code(s): J18.9 - Pneumonia, unspecified organism Status: Acute Assessment and Plan: Chest x-ray shows mild pulmonary edema as well as airspace opacities in the right mid and lower lung zones. CT of the chest which showed patchy consolidation probably ground-glass attenuation right middle lobe and inferior right upper lobe. [place] this was probably pneumonia over edema. Patient remains asymptomatic. No cough or shortness of breath. No oxygen requirement. White count is elevated and now having fevers. BCx 10/16: pending Serum bicarb 18 with AG 16. Check LA. Rocephin and doxycycline started Monitor fever curve and WBC (3) Paroxysmal atrial fibrillation: Code(s): I48.0 - Paroxysmal atrial fibrillation Status: Acute Assessment and Plan: Patient has a history of paroxysmal AFib. EKG showing sinus mechanism. She is on metoprolol and Digoxin for rate control. Digoxin level <0.5. These have been continued. She was on Xarelto as well. Xarelto on hold. Resume Xarelto when okay with surgery. Lovenox started for prophylaxis (4) Congestive heart failure: Code(s): I50.9 - Heart failure, unspecified Status: Acute Assessment and Plan: Patient with known systolic CHF with EF 15-20% last year. Cardiology consulted and has cleared the patient for surgery. EKG showed sinus tachycardia (101), left axis deviation and anterior septal myocardial infarct age indeterminate. Echo showing EF greater than 70% with grade 1 diastolic dysfunction. Monitor fluid status closely. (5) Type 2 diabetes mellitus with hyperglycemia: Qualifiers: Diabetes mellitus mcfp insulin use: unspecified mcfp insulin use status Qualified Code(s): E11.65 - Type 2 diabetes mellitus with hyperglycemia Code(s): E11.65 - Type 2 diabetes mellitus with hyperglycemia Status: Acute Assessment and Plan: The patient's blood glucose was reviewed on 10/17 Glucose remains reasonably well controlled. Continue AccuCheks covering with sliding scale. Hypoglycemia protocol available as needed. Continue to follow (6) Hyperthyroidism: Code(s): E05.90 - Thyrotoxicosis, unspecified without thyrotoxic crisis or storm Status: Acute Assessment and Plan: TSH <0.015 but FT4 and TT3 normal. Continue methimazole. (7) Essential hypertension: Code(s): I10 - Essential (primary) hypertension Status: Acute Assessment and Plan: Patient's blood pressure was reviewed on 10/17 Blood pressure remains reasonably well controlled. Pain may be contributing to her elevated BP. Will continue to follow (8) Anemia: Code(s): D64.9 - Anemia, unspecified Status: Acute Assessment and Plan: Hemoglobin 9.0 on admission and dropped to 8 range. B12 and folate levels normal. Iron studies consistent with iron deficiency anemia. Stool guaiac ordered Monitor H& H. Transfuse to a stable hemoglobin. Plan Incidental finding of compression fractures of T10, L1 and L2 age indeterminate but new from a year ago. Patient has back pain but this is improving over the past year so suspected these vertebral fractures are chronic. DVT prophylaxis with Lovenox GI prophylaxis not indicated Code status full code Subjective Date/time seen: 10/17/23 11:41 Interval
[2023-10-17 12:12] LABS: Glucose Point of Care 233 mg/dl (65-105)
[2023-10-17] MEDS: HYDROcodone/acetaminophen (*CRX) 5-325 MG TABLET 1 TAB PO ×2 (12:40→16:31)
[2023-10-17 13:28] LABS: Lactic Acid Reflex 1.4 mmol/L (0.7-2.0)
[2023-10-17] MEDS: LACTATED RINGERS 1,000 ML 50 ML IV CONT (16:37)
[2023-10-17 17:22] LABS: Glucose Point of Care 190 mg/dl (65-105)
[2023-10-17 21:05] LABS: Glucose Point of Care 202 mg/dl (65-105)
[2023-10-18] VITALS (8 sets, daily range): BP systolic 139–154; BP diastolic 58–73; PULSE 88–102; RESP 16–20; TEMP 37.1–37.9; O2SAT 96–98
[2023-10-18 06:31] LABS: Basophils Absolute Auto 0.1 K/mm3 (0.0-0.1); Basophils Percent Auto 0.3 % (0.2-1.2); Eosinophils Percent Auto 0.2 % (0-4.4); Hematocrit 27.1 % (37.0-47.0); Hemoglobin 8.1 g/dL (12.0-15.0); Immature Granulocyte Absolute 0.18 K/mm3 (0.00-0.031); Immature Granulocyte Percent A 0.8 % (0-0.5); Lymphocytes Absolute Auto 2.46 K/mm3 (0.9-3.2); Mean Corpuscular HGB Conc 29.9 g/dl (32-36); Mean Corpuscular Hemoglobin 24.5 pg (26-34); Mean Corpuscular Volume 81.9 fl (80-100); Mean Platelet Volume 9.7 fl (7.4-10.4); Monocytes Absolute Auto 2.3 K/mm3 (0.1-0.6); Monocytes Percent Auto 10.1 % (2.6-8.5); Neutrophils Absolute Auto 17.4 K/mm3 (1.3-6.7); Neutrophils Percent Auto 77.6 % (45.5-73.1); Nucleated Red Blood Cells Perc 0.1 % (0.0-0.2); Platelet Count Result 412 k/mm3 (150-375); Red Blood Count 3.31 M/mm3 (4.2-5.4); Red Cell Distribution Width 15.2 % (11.5-14.5); White Blood Count 22.4 K/mm3 (4.5-10.0)
[2023-10-18 06:44] LABS: Albumin Level 3.6 g/dL (3.5-5.1); Anion Gap 14 mmol/L (8-16); Blood Urea Nitrogen 32 mg/dL (7-17); Calcium 8.8 mg/dL (8.4-10.2); Carbon Dioxide 20 mmol/L (22-30); Chloride 101 mmol/L (98-107); Estimated CRCL calculation 60 ml/min; Estimated Glomerular Filt Rate > 60; Glucose 174 mg/dL (65-110); Magnesium 2.2 mg/dL (1.6-2.3); Phosphorus 3.3 mg/dL (2.5-4.5); Potassium 3.8 mmol/L (3.4-5.0); Sodium 135 mmol/L (137-145)
[2023-10-18 07:40] LABS: Hypochromasia 1+ (NORMAL); Platelet Estimate Increased (Adequate); Poikilocytosis 1+ (NORMAL); Schistocytes None Seen (NORMAL); Target Cells 1+ (NORMAL)
[2023-10-18 07:41] LABS: Anisocytosis 1+ (NORMAL)
[2023-10-18 07:49] LABS: Glucose Point of Care 168 mg/dl (65-105)
[2023-10-18] MEDS: HYDROcodone/acetaminophen (*CRX) 5-325 MG TABLET 1 TAB PO ×3 (09:35→21:36)
[2023-10-18] MEDS: DOXYCYCLINE HYCLATE 100 MG TABLET PO ×2 (09:36→21:36)
[2023-10-18] MEDS: ENOXAPARIN 40 MG/0.4 ML SYRINGE SUB-Q (09:36)
[2023-10-18] MEDS: DIGOXIN TAB 125 MCG TABLET PO (09:37)
[2023-10-18] MEDS: EMPAGLIFLOZIN 25 MG TABLET BY MOUTH (09:37)
[2023-10-18] MEDS: SPIRONOLACTONE 25 MG TABLET PO (09:37)
[2023-10-18] MEDS: METOPROLOL SUCCINATE EXT REL 50 MG TABCR PO ×2 (09:38→21:36)
[2023-10-18] MEDS: LOSARTAN POTASSIUM 50 MG TABLET PO (09:39)
[2023-10-18] MEDS: FUROSEMIDE 20 MG TABLET PO ×2 (09:39→17:38)
[2023-10-18] MEDS: methiMAzole 5 MG TAB PO (09:39)
[2023-10-18] MEDS: LACTATED RINGERS 1,000 ML 50 ML IV CONT (09:47)
[2023-10-18] MEDS: INSULIN GLARGINE (*BKC) 100 UNITS/ML 7 UNITS SUB-Q (09:49)
--- NOTE | 2023-10-18 10:47 | PM.IMPN ---
Progress Note: A&P Assessment and Plan (1) Intertrochanteric fracture of left hip: Qualifiers: Encounter type: subsequent encounter Fracture type: closed Fracture alignment: displaced Code(s): S72.142A - Displaced intertrochanteric fracture of left femur, initial encounter for closed fracture Status: Acute Assessment and Plan: Patient with hip pain after a fall. Imaging shows IT fracture of the proximal left femur. Patient was cleared by Cardiology for procedure but now having fevers so surgery on hold. Appreciate orthopedic consultation Proceed with surgery when okay with ortho (2) Pneumonia: Code(s): J18.9 - Pneumonia, unspecified organism Status: Acute Assessment and Plan: Chest x-ray shows mild pulmonary edema as well as airspace opacities in the right mid and lower lung zones. CT of the chest showing patchy consolidation probably ground-glass attenuation right middle lobe and inferior right upper lobe concern for PNA. [place] this was probably pneumonia over edema. Patient remains asymptomatic. No cough or shortness of breath. No oxygen requirement. White count was elevated and climbed to 26.7K and developed fevers. BCx 12/6: NGTD Serum bicarb 18 with AG 16. lactic 1.4 Rocephin and doxycycline started WBC better and fever curve improved. Continue current treatment plan (3) Paroxysmal atrial fibrillation: Code(s): I48.0 - Paroxysmal atrial fibrillation Status: Acute Assessment and Plan: Patient has a history of paroxysmal AFib related to thyrotoxicosis. EKG on admisison showing sinus mechanism. She is on metoprolol and Digoxin for rate control. Digoxin level <0.5. These have been continued. She was on Xarelto as well. Xarelto on hold. Resume Xarelto when okay with surgery. Lovenox started for prophylaxis (4) Congestive heart failure: Code(s): I50.9 - Heart failure, unspecified Status: Acute Assessment and Plan: Patient with known systolic CHF with EF 15-20% last year. EKG showed sinus tachycardia (101), left axis deviation and anterior septal myocardial infarct age indeterminate. Echo showing EF greater than 70% with grade 1 diastolic dysfunction. Cardiology consulted and has cleared the patient for surgery. Monitor fluid status closely. (5) Type 2 diabetes mellitus with hyperglycemia: Qualifiers: Diabetes mellitus [facility] insulin use: unspecified manager long term care insulin use status Qualified Code(s): E11.65 - Type 2 diabetes mellitus with hyperglycemia Code(s): E11.65 - Type 2 diabetes mellitus with hyperglycemia Status: Acute Assessment and Plan: The patient's blood glucose was reviewed on 10/18 Glucose remains reasonably well controlled. Continue AccuCheks covering with sliding scale. Hypoglycemia protocol available as needed. Continue to follow (6) Hyperthyroidism: Code(s): E05.90 - Thyrotoxicosis, unspecified without thyrotoxic crisis or storm Status: Acute Assessment and Plan: TSH <0.015 but FT4 and TT3 normal. Continue methimazole. (7) Essential hypertension: Code(s): I10 - Essential (primary) hypertension Status: Acute Assessment and Plan: Patient's blood pressure was reviewed on 10/18 Blood pressure remains reasonably well controlled. Pain may be contributing to her elevated BP. Will continue to follow (8) Anemia: Code(s): D64.9 - Anemia, unspecified Status: Acute Assessment and Plan: Hemoglobin 9.0 on admission and dropped to 8 range and stable. B12 and folate levels normal. Iron studies consistent with iron deficiency anemia. Stool guaiac ordered Monitor H& H. Transfuse to a stable hemoglobin. (9) Ataxia: Code(s): R27.0 - Ataxia, unspecified Status: Acute Assessment and Plan: Patient states she been feeling balance past year she denies history of stroke. No history of alcohol
[2023-10-18 11:55] LABS: Glucose Point of Care 286 mg/dl (65-105)
[2023-10-18] MEDS: INSULIN ASPART (*BKC) 100 UNITS/ML SUB-Q ×2 (12:50→17:46)
[2023-10-18 17:18] LABS: Glucose Point of Care 183 mg/dl (65-105)
[2023-10-18 21:24] LABS: Glucose Point of Care 169 mg/dl (65-105)
[2023-10-19] VITALS (9 sets, daily range): BP systolic 130–164; BP diastolic 59–70; PULSE 80–94; RESP 16–20; TEMP 37.1–37.8; O2SAT 97–99
[2023-10-19 06:51] LABS: Basophils Absolute Auto 0.1 K/mm3 (0.0-0.1); Basophils Percent Auto 0.4 % (0.2-1.2); Eosinophils Absolute Auto 0.2 K/mm3 (0-0.3); Eosinophils Percent Auto 1.3 % (0-4.4); Hematocrit 26.6 % (37.0-47.0); Immature Granulocyte Absolute 0.12 K/mm3 (0.00-0.031); Immature Granulocyte Percent A 0.7 % (0-0.5); Lymphocytes Absolute Auto 2.25 K/mm3 (0.9-3.2); Lymphocytes Percent Auto 13.6 % (18.3-44.2); Mean Corpuscular HGB Conc 30.1 g/dl (32-36); Mean Corpuscular Hemoglobin 24.4 pg (26-34); Mean Corpuscular Volume 81.1 fl (80-100); Mean Platelet Volume 9.7 fl (7.4-10.4); Monocytes Absolute Auto 2.4 K/mm3 (0.1-0.6); Monocytes Percent Auto 14.2 % (2.6-8.5); Neutrophils Absolute Auto 11.6 K/mm3 (1.3-6.7); Neutrophils Percent Auto 69.8 % (45.5-73.1); Nucleated Red Blood Cells Absolute Auto 0.1 K/mm3 (0.0-0.012); Nucleated Red Blood Cells Perc 0.7 % (0.0-0.2); Platelet Count Result 411 k/mm3 (150-375); Red Blood Count 3.28 M/mm3 (4.2-5.4); Red Cell Distribution Width 15.2 % (11.5-14.5); White Blood Count 16.6 K/mm3 (4.5-10.0)
[2023-10-19 07:10] LABS: Anion Gap 8 mmol/L (8-16); Blood Urea Nitrogen 28 mg/dL (7-17); Calcium 8.9 mg/dL (8.4-10.2); Carbon Dioxide 24 mmol/L (22-30); Chloride 103 mmol/L (98-107); Estimated CRCL calculation 70 ml/min; Estimated Glomerular Filt Rate > 60; Glucose 161 mg/dL (65-110); Potassium 3.8 mmol/L (3.4-5.0); Sodium 135 mmol/L (137-145)
[2023-10-19 08:03] LABS: Glucose Point of Care 159 mg/dl (65-105)
[2023-10-19] MEDS: INSULIN ASPART (*BKC) 100 UNITS/ML SUB-Q ×2 (08:50→12:45)
[2023-10-19] MEDS: LACTATED RINGERS 1,000 ML 50 ML IV CONT (08:50)
[2023-10-19] MEDS: ENOXAPARIN 40 MG/0.4 ML SYRINGE SUB-Q (08:51)
[2023-10-19] MEDS: DIGOXIN TAB 125 MCG TABLET PO (08:51)
[2023-10-19] MEDS: methiMAzole 5 MG TAB PO (08:52)
[2023-10-19] MEDS: METOPROLOL SUCCINATE EXT REL 50 MG TABCR PO ×2 (08:52→20:41)
[2023-10-19] MEDS: FUROSEMIDE 20 MG TABLET PO ×2 (08:52→17:41)
[2023-10-19] MEDS: SPIRONOLACTONE 25 MG TABLET PO (08:53)
[2023-10-19] MEDS: DOXYCYCLINE HYCLATE 100 MG TABLET PO ×2 (08:53→20:42)
[2023-10-19] MEDS: HYDROcodone/acetaminophen (*CRX) 5-325 MG TABLET 1 TAB PO ×3 (08:53→22:03)
[2023-10-19] MEDS: EMPAGLIFLOZIN 25 MG TABLET BY MOUTH (08:53)
[2023-10-19] MEDS: LOSARTAN POTASSIUM 50 MG TABLET PO (08:53)
--- NOTE | 2023-10-19 08:54 | PM.PNORT ---
Progress Note: A&P Assessment and Plan (1) Intertrochanteric fracture of left hip: Qualifiers: Encounter type: subsequent encounter Fracture type: closed Fracture alignment: displaced Code(s): S72.142A - Displaced intertrochanteric fracture of left femur, initial encounter for closed fracture Status: Acute Plan 68-year-old female with left IT hip fracture. Plan surgery on Saturday the . Discussed again with the patient. Plan to keep NPO after midnight tomorrow night. Discontinue Lovenox after dose tomorrow. Will restart on Xarelto after surgery. Subjective Subjective Date/Time Seen: 10/19/23 08:54 Principal diagnosis: Left IT hip fracture Interval history: 68-year-old female who has got a left IT hip fracture. Surgery was postponed because she became febrile. She is trending down with respect to her fever. Blood cultures have been negative. White count is starting to come down as well. 16.6 today. Hemoglobin stable at 8. Patient able to be kept comfortable. Exam Const: General: cooperative and no acute distress Extrem: Other: Skin over left hip in good condition. Grossly neurovascular status intact left lower extremity but exam limited secondary to discomfort. Calves nontender. Objective Data Vital Signs Vital Signs: Vital Signs - 24 hr 10/18/23 09:02 10/18/23 09:37 10/18/23 09:38 Temperature 99.3 F Pulse Rate 98 102 H 102 H Respiratory Rate 20 Blood Pressure 151/73 H Pulse Oximetry 97 Oxygen Delivery 10/18/23 13:03 10/18/23 18:28 10/18/23 09:50 Temperature 99.1 F 98.8 F Pulse Rate 98 93 Respiratory Rate 20 18 Blood Pressure 139/58 L 142/64 H Pulse Oximetry 96 97 Oxygen Delivery Room Air 10/18/23 20:00 10/18/23 20:00 10/19/23 00:00 Temperature 99.6 F 99.4 F Pulse Rate 88 86 Respiratory Rate 16 16 Blood Pressure 154/68 H 150/64 H Pulse Oximetry 98 98 98 Oxygen Delivery Room Air 10/19/23 04:00 Temperature 99.1 F Pulse Rate 80 Respiratory Rate 16 Blood Pressure 150/70 H Pulse Oximetry 99 Oxygen Delivery Intake/Output Intake/Output: Intake & Output 10/16/23 10/17/23 10/18/23 10/19/23 23:59 23:59 23:59 23:59 Intake Total 290 / 290 2230 / 2230 3190 / 3190 Output Total 4050 / 4050 2300 / 2300 2850 / 2850 Balance -3760 / -3760 -70 / -70 340 / 340 Meds/Results Medications: Active Medications Generic Name Dose Route Start Last Admin Trade Name Freq PRN Reason Stop Dose Admin Acetaminophen 650 mg 10/14/23 22:11 10/17/23 06:19 Acetaminophen 325 Mg Tablet PO 650 mg Q4H PRN Administration Mild Pain (1-3) or Fever Hydrocodone Bitart/Acetaminophen 1 tab 10/14/23 22:11 10/18/23 21:36 Hydrocodone/Acetaminophen (*Crx) 5-325 Mg Tablet PO 1 tab Q4H PRN Administration Pain Rated 4-6 Dextrose 12.5 gm 10/18/23 12:09 Dextrose 50% 25 Gm/50 Ml Syringe IV PUSH PRN PRN Hypoglycemia Protocol Digoxin 125 mcg 10/16/23 09:00 10/18/23 09:37 Digoxin Tab 125 Mcg Tablet PO 125 mcg DAILY FERNANDA Administration Doxycycline Hyclate 100 mg 10/16/23 21:00 10/18/23 21:36 Doxycycline Hyclate 100 Mg Tablet PO 10/23/23 09:01 100 mg Q12HR FERNANDA Administration Empagliflozin 25 mg 10/16/23 09:00 10/18/23 09:37 Empagliflozin 25 Mg Tablet BY MOUTH 25 mg DAILY FERNANDA Administration Enoxaparin Sodium 40 mg 10/17/23 09:00 10/18/23 09:36 Enoxaparin 40 Mg/0.4 Ml Syringe SUB-Q 40 mg DAILY FERNANDA Administration Fentanyl Citrate 25 mcg 10/16/23 14:22 Fentanyl Citrate Inj (*Crx) 100 Mcg/2 Ml Vial IV PUSH Q2M PRN Pain Furosemide 20 mg 10/15/23 17:00 10/18/23 17:38 Furosemide 20 Mg Tablet PO 20 mg BID FERNANDA Administration Glucagon 1 mg 10/18/23 12:09 Glucagon For Inj 1 Mg Vial IM PRN PRN Hypoglycemia Protocol Glucose 15 gm 10/18/23 12:09 Glucose Oral Gel 15 Gm Of Glucse In 37.5 Gm Tube PO PRN PRN
[2023-10-19] MEDS: INSULIN GLARGINE (*BKC) 100 UNITS/ML 7 UNITS SUB-Q (08:57)
[2023-10-19 11:30] LABS: Glucose Point of Care 203 mg/dl (65-105)
--- NOTE | 2023-10-19 12:25 | PM.IMPN ---
Progress Note: A&P Assessment and Plan (1) Intertrochanteric fracture of left hip: Qualifiers: Encounter type: subsequent encounter Fracture type: closed Fracture alignment: displaced Code(s): S72.142A - Displaced intertrochanteric fracture of left femur, initial encounter for closed fracture Status: Acute Assessment and Plan: Patient with hip pain after a fall. Imaging shows IT fracture of the proximal left femur. Patient was cleared by Cardiology for procedure but now having fevers so surgery on hold. Appreciate orthopedic consultation Proceed with surgery on 10/21 (2) Pneumonia: Code(s): J18.9 - Pneumonia, unspecified organism Status: Acute Assessment and Plan: Chest x-ray shows mild pulmonary edema as well as airspace opacities in the right mid and lower lung zones. CT of the chest showing patchy consolidation probably ground-glass attenuation right middle lobe and inferior right upper lobe concern for PNA. [place] this was probably pneumonia over edema. Patient was asymptomatic but then developed fevers. WBC was 12.8K but climbed to 26.7K Serum bicarb 18 with AG 16. lactic 1.4 Rocephin and doxycycline started 10/16 BCx 10/16: NGTD WBC better and fever curve improved. Continue current treatment plan (3) Paroxysmal atrial fibrillation: Code(s): I48.0 - Paroxysmal atrial fibrillation Status: Acute Assessment and Plan: Patient has a history of paroxysmal AFib related to thyrotoxicosis. EKG on admisison showing sinus mechanism. She is on metoprolol and Digoxin for rate control. Digoxin level <0.5. These have been continued. She was on Xarelto as well. Xarelto on hold. Lovenox started for prophylaxis Resume Xarelto when okay with surgery. (4) Congestive heart failure: Code(s): I50.9 - Heart failure, unspecified Status: Acute Assessment and Plan: Patient with known systolic CHF with EF 15-20% last year. EKG showed sinus tachycardia (101), left axis deviation and anterior septal myocardial infarct age indeterminate. Echo here showing EF greater than 70% with grade 1 diastolic dysfunction. Cardiology consulted and has cleared the patient for surgery. Monitor fluid status closely. (5) Type 2 diabetes mellitus with hyperglycemia: Qualifiers: Diabetes mellitus exterminator insulin use: unspecified exterminator insulin use status Qualified Code(s): E11.65 - Type 2 diabetes mellitus with hyperglycemia Code(s): E11.65 - Type 2 diabetes mellitus with hyperglycemia Status: Acute Assessment and Plan: The patient's blood glucose was reviewed on 10/19 Glucose remains reasonably well controlled. Continue AccuCheks covering with sliding scale. Hypoglycemia protocol available as needed. Continue to follow (6) Hyperthyroidism: Code(s): E05.90 - Thyrotoxicosis, unspecified without thyrotoxic crisis or storm Status: Acute Assessment and Plan: TSH <0.015 but FT4 and TT3 normal. Continue methimazole. (7) Essential hypertension: Code(s): I10 - Essential (primary) hypertension Status: Acute Assessment and Plan: Patient's blood pressure was reviewed on 10/19 Blood pressure remains reasonably well controlled. Pain may be contributing to her elevated BP. Will continue to follow (8) Anemia: Code(s): D64.9 - Anemia, unspecified Status: Acute Assessment and Plan: Hemoglobin 9.0 on admission and dropped to 8 range and stable. B12 and folate levels normal. Iron studies consistent with iron deficiency anemia. Stool guaiac ordered. Iron added. Monitor H& H. Transfuse to a stable hemoglobin. (9) Ataxia: Code(s): R27.0 - Ataxia, unspecified Status: Acute Assessment and Plan: Patient states she been feeling balance past year she denies history of stroke. No history of alcohol abuse. B12 level normal. No brain imaging noted her
[2023-10-19] MEDS: polyethylene glycoL 3350 17 GM POWD.PACK PO (15:16)
[2023-10-19 16:27] LABS: Glucose Point of Care 198 mg/dl (65-105)
[2023-10-19] MEDS: INSULIN ASPART (*BKC) 100 UNITS/ML 7 UNITS SUB-Q (17:42)
[2023-10-19 21:05] LABS: Glucose Point of Care 148 mg/dl (65-105)
[2023-10-20] VITALS (10 sets, daily range): BP systolic 128–168; BP diastolic 63–78; PULSE 83–96; RESP 16–20; TEMP 36.9–37.3; O2SAT 97–99
[2023-10-20 06:56] LABS: Anion Gap 9 mmol/L (8-16); Blood Urea Nitrogen 20 mg/dL (7-17); Calcium 8.6 mg/dL (8.4-10.2); Carbon Dioxide 25 mmol/L (22-30); Chloride 102 mmol/L (98-107); Estimated CRCL calculation 82 ml/min; Estimated Glomerular Filt Rate > 60; Glucose 145 mg/dL (65-110); Potassium 4.2 mmol/L (3.4-5.0); Sodium 136 mmol/L (137-145)
[2023-10-20 07:05] LABS: Basophils Absolute Auto 0.1 K/mm3 (0.0-0.1); Basophils Percent Auto 0.5 % (0.2-1.2); Eosinophils Absolute Auto 0.4 K/mm3 (0-0.3); Eosinophils Percent Auto 3.5 % (0-4.4); Hematocrit 26.7 % (37.0-47.0); Immature Granulocyte Absolute 0.05 K/mm3 (0.00-0.031); Immature Granulocyte Percent A 0.4 % (0-0.5); Lymphocytes Absolute Auto 2.53 K/mm3 (0.9-3.2); Lymphocytes Percent Auto 21.1 % (18.3-44.2); Mean Corpuscular Hemoglobin 24.2 pg (26-34); Mean Corpuscular Volume 80.9 fl (80-100); Mean Platelet Volume 9.6 fl (7.4-10.4); Monocytes Absolute Auto 1.8 K/mm3 (0.1-0.6); Monocytes Percent Auto 14.7 % (2.6-8.5); Neutrophils Absolute Auto 7.2 K/mm3 (1.3-6.7); Neutrophils Percent Auto 59.8 % (45.5-73.1); Nucleated Red Blood Cells Absolute Auto 0.2 K/mm3 (0.0-0.012); Nucleated Red Blood Cells Perc 1.3 % (0.0-0.2); Platelet Count Result 416 k/mm3 (150-375)
[2023-10-20 07:33] LABS: Glucose Point of Care 148 mg/dl (65-105)
[2023-10-20] MEDS: DIGOXIN TAB 125 MCG TABLET PO (08:59)
[2023-10-20] MEDS: INSULIN ASPART (*BKC) 100 UNITS/ML 7 UNITS SUB-Q ×2 (09:02→11:52)
[2023-10-20] MEDS: INSULIN GLARGINE (*BKC) 100 UNITS/ML 7 UNITS SUB-Q (09:03)
[2023-10-20] MEDS: DOXYCYCLINE HYCLATE 100 MG TABLET PO ×2 (09:04→21:14)
[2023-10-20] MEDS: METOPROLOL SUCCINATE EXT REL 50 MG TABCR PO ×2 (09:04→21:14)
[2023-10-20] MEDS: SPIRONOLACTONE 25 MG TABLET PO (09:04)
[2023-10-20] MEDS: FUROSEMIDE 20 MG TABLET PO ×2 (09:04→17:39)
[2023-10-20] MEDS: LOSARTAN POTASSIUM 50 MG TABLET PO (09:04)
[2023-10-20] MEDS: EMPAGLIFLOZIN 25 MG TABLET BY MOUTH (09:05)
[2023-10-20] MEDS: ENOXAPARIN 40 MG/0.4 ML SYRINGE SUB-Q (09:05)
[2023-10-20] MEDS: polyethylene glycoL 3350 17 GM POWD.PACK PO (09:05)
[2023-10-20] MEDS: methiMAzole 5 MG TAB PO (09:22)
[2023-10-20 11:17] LABS: Glucose Point of Care 178 mg/dl (65-105)
[2023-10-20] MEDS: HYDROcodone/acetaminophen (*CRX) 5-325 MG TABLET 1 TAB PO ×3 (14:31→22:05)
[2023-10-20 16:43] LABS: Glucose Point of Care 177 mg/dl (65-105)
--- NOTE | 2023-10-20 17:04 | PM.IMPN ---
Progress Note: A&P Assessment and Plan (1) Intertrochanteric fracture of left hip: Qualifiers: Encounter type: subsequent encounter Fracture type: closed Fracture alignment: displaced Code(s): S72.142A - Displaced intertrochanteric fracture of left femur, initial encounter for closed fracture Status: Acute Assessment and Plan: Patient with hip pain after a fall. Imaging shows IT fracture of the proximal left femur. Patient was cleared by Cardiology for procedure but now having fevers so surgery on hold. Appreciate orthopedic consultation Proceed with surgery tomorrow (2) Pneumonia: Code(s): J18.9 - Pneumonia, unspecified organism Status: Acute Assessment and Plan: Chest x-ray shows mild pulmonary edema as well as airspace opacities in the right mid and lower lung zones. CT of the chest showing patchy consolidation probably ground-glass attenuation right middle lobe and inferior right upper lobe concern for PNA. [place] this was probably pneumonia over edema. Patient was asymptomatic but then developed fevers. WBC was 12.8K but climbed to 26.7K Serum bicarb 18 with AG 16. lactic 1.4 Rocephin and doxycycline started 10/16 BCx 10/16: NGTD WBC better and fever resolved Continue current treatment plan (3) Paroxysmal atrial fibrillation: Code(s): I48.0 - Paroxysmal atrial fibrillation Status: Acute Assessment and Plan: Patient has a history of paroxysmal AFib related to thyrotoxicosis. EKG on admisison showing sinus mechanism. She is on metoprolol and Digoxin for rate control. Digoxin level <0.5. These have been continued. She was on Xarelto as well. Xarelto on hold. Lovenox started for prophylaxis Resume Xarelto when okay with surgery. (4) Congestive heart failure: Code(s): I50.9 - Heart failure, unspecified Status: Acute Assessment and Plan: Patient with known systolic CHF with EF 15-20% last year. EKG showed sinus tachycardia (101), left axis deviation and anterior septal myocardial infarct age indeterminate. Echo here showing EF greater than 70% with grade 1 diastolic dysfunction. Cardiology consulted and has cleared the patient for surgery. Monitor fluid status closely. 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 Continue AccuCheks covering with sliding scale. Hypoglycemia protocol available as needed. Continue to follow Hold insulin tomorrow (6) Hyperthyroidism: Code(s): E05.90 - Thyrotoxicosis, unspecified without thyrotoxic crisis or storm Status: Acute Assessment and Plan: TSH <0.015 but FT4 and TT3 normal. Continue methimazole. (7) Essential hypertension: Code(s): I10 - Essential (primary) hypertension Status: Acute Assessment and Plan: Patient's blood pressure was reviewed on 10/20 Blood pressure remains reasonably well controlled. Pain may be contributing to her randomly elevated BP. Will continue to follow (8) Anemia: Code(s): D64.9 - Anemia, unspecified Status: Acute Assessment and Plan: Hemoglobin 9.0 on admission and dropped to 8 range and stable. B12 and folate levels normal. Iron studies consistent with iron deficiency anemia. Stool guaiac ordered. Iron added. Monitor H& H. Transfuse to a stable hemoglobin. (9) Ataxia: Code(s): R27.0 - Ataxia, unspecified Status: Acute Assessment and Plan: Patient states she been feeling off balance past year but she denies history of stroke. No history of alcohol abuse. B12 level n
[2023-10-20 21:26] LABS: Glucose Point of Care 212 mg/dl (65-105)
[2023-10-21] VITALS (20 sets, daily range): BP systolic 141–199; BP diastolic 65–96; PULSE 76–96; RESP 12–20; TEMP 36.2–37.2; O2SAT 94–100; BMI 22.8
[2023-10-21 06:32] LABS: Basophils Absolute Auto 0.1 K/mm3 (0.0-0.1); Basophils Percent Auto 0.7 % (0.2-1.2); Eosinophils Absolute Auto 0.4 K/mm3 (0-0.3); Eosinophils Percent Auto 3.2 % (0-4.4); Hematocrit 27.8 % (37.0-47.0); Hemoglobin 8.2 g/dL (12.0-15.0); Immature Granulocyte Absolute 0.06 K/mm3 (0.00-0.031); Immature Granulocyte Percent A 0.6 % (0-0.5); Lymphocytes Absolute Auto 2.43 K/mm3 (0.9-3.2); Lymphocytes Percent Auto 22.5 % (18.3-44.2); Mean Corpuscular HGB Conc 29.5 g/dl (32-36); Mean Corpuscular Hemoglobin 23.9 pg (26-34); Mean Platelet Volume 9.6 fl (7.4-10.4); Monocytes Absolute Auto 1.6 K/mm3 (0.1-0.6); Monocytes Percent Auto 14.5 % (2.6-8.5); Neutrophils Absolute Auto 6.3 K/mm3 (1.3-6.7); Neutrophils Percent Auto 58.5 % (45.5-73.1); Nucleated Red Blood Cells Absolute Auto 0.1 K/mm3 (0.0-0.012); Nucleated Red Blood Cells Perc 1.1 % (0.0-0.2); Platelet Count Result 444 k/mm3 (150-375); Red Blood Count 3.43 M/mm3 (4.2-5.4); Red Cell Distribution Width 14.9 % (11.5-14.5); White Blood Count 10.8 K/mm3 (4.5-10.0)
[2023-10-21 06:44] LABS: Anion Gap 7 mmol/L (8-16); Blood Urea Nitrogen 21 mg/dL (7-17); Calcium 8.9 mg/dL (8.4-10.2); Carbon Dioxide 28 mmol/L (22-30); Chloride 100 mmol/L (98-107); Estimated CRCL calculation 82 ml/min; Estimated Glomerular Filt Rate > 60; Glucose 163 mg/dL (65-110); Potassium 3.8 mmol/L (3.4-5.0); Sodium 135 mmol/L (137-145)
[2023-10-21 07:54] LABS: Glucose Point of Care 168 mg/dl (65-105)
[2023-10-21] MEDS: METOPROLOL SUCCINATE EXT REL 50 MG TABCR PO ×2 (08:26→20:13)
[2023-10-21] MEDS: DIGOXIN TAB 125 MCG TABLET PO (08:26)
[2023-10-21] MEDS: SPIRONOLACTONE 25 MG TABLET PO (08:26)
[2023-10-21] MEDS: LOSARTAN POTASSIUM 50 MG TABLET PO (08:27)
[2023-10-21 08:28] LABS: Anisocytosis 1+ (NORMAL); Hypochromasia 1+ (NORMAL); Platelet Estimate Increased (Adequate); Schistocytes None Seen (NORMAL); Target Cells 1+ (NORMAL)
[2023-10-21] MEDS: FUROSEMIDE 20 MG TABLET PO ×2 (08:28→17:15)
[2023-10-21] MEDS: MORPHINE SULFATE (*CRX) 4 MG/ML INJ 2 MG IV PUSH (08:34)
--- NOTE | 2023-10-21 11:12 | PM.IMPN ---
Progress Note: A&P Assessment and Plan (1) Intertrochanteric fracture of left hip: Qualifiers: Encounter type: subsequent encounter Fracture type: closed Fracture alignment: displaced Code(s): S72.142A - Displaced intertrochanteric fracture of left femur, initial encounter for closed fracture Status: Acute Assessment and Plan: Patient with hip pain after a fall. Imaging shows IT fracture of the proximal left femur. Patient was cleared by Cardiology for procedure but now having fevers so surgery on hold. Appreciate orthopedic consultation Proceed with surgery today (2) Pneumonia: Code(s): J18.9 - Pneumonia, unspecified organism Status: Acute Assessment and Plan: Chest x-ray shows mild pulmonary edema as well as airspace opacities in the right mid and lower lung zones. CT of the chest showing patchy consolidation probably ground-glass attenuation right middle lobe and inferior right upper lobe concern for PNA. [place] this was probably pneumonia over edema. Patient was asymptomatic but then developed fevers. WBC was 12.8K but climbed to 26.7K Serum bicarb 18 with AG 16. lactic 1.4 Rocephin and doxycycline started 10/16 BCx 10/16: NGTD WBC better and fever resolved Continue current treatment plan (3) Paroxysmal atrial fibrillation: Code(s): I48.0 - Paroxysmal atrial fibrillation Status: Acute Assessment and Plan: Patient has a history of paroxysmal AFib related to thyrotoxicosis. EKG on admisison showing sinus mechanism. She is on metoprolol and Digoxin for rate control. Digoxin level <0.5. These have been continued. She was on Xarelto as well. Xarelto on hold. Lovenox started for prophylaxis Resume Xarelto when okay with surgery. (4) Congestive heart failure: Code(s): I50.9 - Heart failure, unspecified Status: Acute Assessment and Plan: Patient with known systolic CHF with EF 15-20% last year. EKG showed sinus tachycardia (101), left axis deviation and anterior septal myocardial infarct age indeterminate. Echo here showing EF greater than 70% with grade 1 diastolic dysfunction. Cardiology consulted and has cleared the patient for surgery. Monitor fluid status closely. (5) Type 2 diabetes mellitus with hyperglycemia: Qualifiers: Diabetes mellitus nursing home insulin use: unspecified nursing home insulin use status Qualified Code(s): E11.65 - Type 2 diabetes mellitus with hyperglycemia Code(s): E11.65 - Type 2 diabetes mellitus with hyperglycemia Status: Acute Assessment and Plan: The patient's blood glucose was reviewed on 10/21 Glucose remains reasonably well controlled. Continue AccuCheks covering with sliding scale. Hypoglycemia protocol available as needed. Continue to follow Resume insulin when eating (6) Hyperthyroidism: Code(s): E05.90 - Thyrotoxicosis, unspecified without thyrotoxic crisis or storm Status: Acute Assessment and Plan: TSH <0.015 but FT4 and TT3 normal. Continue methimazole. (7) Essential hypertension: Code(s): I10 - Essential (primary) hypertension Status: Acute Assessment and Plan: Patient's blood pressure was reviewed on 10/21 Blood pressure remains reasonably well controlled. Pain may be contributing to her randomly elevated BP. Will continue to follow (8) Anemia: Code(s): D64.9 - Anemia, unspecified Status: Acute Assessment and Plan: Hemoglobin 9.0 on admission and dropped to 8 range and stable. B12 and folate levels normal. Iron studies consistent with iron deficiency anemia. Stool guaiac ordered. Iron added. Monitor H& H. Transfuse to a stable hemoglobin. (9) Ataxia: Code(s): R27.0 - Ataxia, unspecified Status: Acute Assessment and Plan: Patient states she been feeling off balance past year but she denies history of stroke. No history of alcohol abuse. B12 level
[2023-10-21 11:50] LABS: Glucose Point of Care 159 mg/dl (65-105)
--- NOTE | 2023-10-21 12:32 | WPDHPUPDATE1 ---
History and Physical Update Update Date/Time: 10/21/23 12:32 History and Physical has been reviewed, including an updated exam of the patient. There are NO changes in the patient's condition. Risks, benefits, and alternatives have been discussed and questions answered. Patient agrees to proceed with procedure.
[2023-10-21] MEDS: LACTATED RINGERS 1,000 ML 30 ML IV CONT (13:00)
[2023-10-21] MEDS: fentaNYL CITRATE INJ (*CRX) 100 MCG/2 ML VIAL 25 MCG IV PUSH ×5 (13:29→15:20)
--- NOTE | 2023-10-21 13:42 | WPDANESEPPF ---
Anes - Initial Pre Proc Eval Procedure: Operation Date: 10/16/23 15:00 Proposed Procedures p Left Intertrochanteric Nail - Zeferino Hdez MD Operation Date: 10/21/23 13:00 Proposed Procedures p Left Intertrochanteric Nail - Zeferino Hdez MD Date/Time: 10/21/23 13:42 Surgeon: Lianet Zelaya DO Pre Op Diagnosis: L Intertrochanteric Fracture Patient Data Age: 68 Gender: F Height: 1.65 m Weight: 62.1 kg Last Vital Signs Temp 37.2 C 10/21/23 13:30 Pulse 80 10/21/23 13:30 Resp 14 10/21/23 13:30 BP 152/73 H 10/21/23 13:30 Pulse Ox 100 10/21/23 13:30 O2 Del Method Room Air 10/21/23 13:30 Allergies Allergy/AdvReac Type Severity Reaction Status Date / Time estrogens, conjugated Allergy Unknown Other Verified 10/31/22 09:13 Home Medications Medication Instructions Recorded Confirmed Type dapagliflozin propanediol 10 mg 10 mg PO DAILY 10/15/23 10/15/23 History tablet (Farxiga) digoxin 125 mcg (0.125 mg) tablet 0.125 mg PO DAILY 10/15/23 10/15/23 History furosemide 20 mg tablet 20 mg PO BID 10/15/23 10/15/23 History insulin glargine 100 unit/mL (3 7 unit subcut DAILY 10/15/23 10/15/23 History mL) subcutaneous pen (Lantus Solostar U-100 Insulin) insulin lispro 100 unit/mL 10 unit subcut AC 10/15/23 10/15/23 History subcutaneous pen losartan 50 mg tablet 50 mg PO DAILY 10/15/23 10/15/23 History methimazole 5 mg tablet 5 mg PO DAILY 10/15/23 10/15/23 History metoprolol succinate 50 mg 50 mg PO BID 10/15/23 10/15/23 History tablet,extended release 24 hr rivaroxaban 20 mg tablet (Xarelto) 20 mg PO DAILY 10/15/23 10/15/23 History spironolactone 25 mg tablet 25 mg PO DAILY 10/15/23 10/15/23 History Laboratory Tests 10/20/23 10/20/23 10/21/23 16:40 20:52 05:48 WBC 10.8 H K/mm3 (4.5-10.0) RBC 3.43 L M/mm3 (4.2-5.4) Hgb 8.2 L g/dL (12.0-15.0) Hct 27.8 L % (37.0-47.0) MCV 81.0 fl (80-100) MCH 23.9 L pg (26-34) MCHC 29.5 L g/dl (32-36) RDW 14.9 H % (11.5-14.5) Plt Count 444 H k/mm3 (150-375) MPV 9.6 fl (7.4-10.4) Immature Gran % (Auto) 0.6 H % (0-0.5) Neut % (Auto) 58.5 % (45.5-73.1) Lymph % (Auto) 22.5 % (18.3-44.2) [place] % (Auto) 14.5 H % (2.6-8.5) Eos % (Auto) 3.2 % (0-4.4) Baso % (Auto) 0.7 % (0.2-1.2) Lymph # (Auto) 2.43 K/mm3 (0.9-3.2) [place] # (Auto) 1.6 H K/mm3 (0.1-0.6) Eos # (Auto) 0.4 H K/mm3 (0-0.3) Baso # (Auto) 0.1 K/mm3 (0.0-0.1) Abs Immat Gran (auto) 0.06 H K/mm3 (0.00-0.031) Absolute Neuts (auto) 6.3 K/mm3 (1.3-6.7) Absolute Nucleated RBC 0.1 H K/mm3 (0.0-0.012) Nucleated RBC % 1.1 H % (0.0-0.2) Platelet Estimate Increased (Adequate) Hypochromasia 1+ (NORMAL) Anisocytosis 1+ (NORMAL) Target Cells 1+ (NORMAL) Schistocytes None seen (NORMAL) Sodium 135 L mmol/L (137-145) Potassium 3.8 mmol/L (3.4-5.0) Chloride 100 mmol/L (98-107) Carbon Dioxide 28 mmol/L (22-30) Anion Gap 7 L mmol/L (8-16) BUN 21 H mg/dL (7-17) Creatinine 0.50 L mg/dL (0.7-1.0) Estim Creat Clear Calc 82 ml/min Estimated GFR > 60 (59 - ) Glucose 163 H mg/dL (65-110) POC Capillary Glucose 177 H mg/dl 212 H mg/dl (65-105) (65-105) Calcium 8.9 mg/dL (8.4-10.2) 10/21/23 10/21/23 07:51 11:34 WBC RBC Hgb Hct MCV MCH MCHC RDW Plt Count MPV Immature Gran % (Auto) Neut % (Auto) Lymph % (Auto) [place] % (Auto) Eos % (Auto) Baso % (Auto) Lymph # (Auto)
[2023-10-21 13:49] LABS: Glucose Point of Care 135 mg/dl (65-105)
--- NOTE | 2023-10-21 14:59 | P.OP_ITS ---
Procedure Note - Detailed Date of Procedure 10/21/23 Pre-op Diagnosis L Intertrochanteric Fracture Post-op Diagnosis Same Procedure Performed ORIF left IT hip fracture with trochanteric nail device Surgeon Zeferino Hdez MD [employer] Software Development Engineer Mohit Anesthesia General Description of Procedure The patient was identified and proper site identified, then was taken to the operating room and after general anesthetic induction and intubation was transferred to the [place] table positioning supine taking care to properly pad position the torso and extremities. A provisional reduction was able to be obtained with fluoroscopic assistance. The left hip and thigh was then prepped and draped in the usual sterile fashion. A short incision was made proximal to the tip of the greater trochanter. Subcutaneous tissue was sharply dissected down to the gluteus fascia which was incised over the tip of the greater trochanter. An awl was used to create a starting hole through which a guide guido was inserted into the femoral canal verifying its position fluoroscopically. The one-step Reamer was used to prepare the entry point for the guido. A 125 degree 180 by 9 millimeter short nail was then inserted to the appropriate level using the targeting device. Through a 2nd more distal incision under fluo roscopic visualization an 85 mm lag screw was inserted over a guidewire into the femoral neck and head securing it with the set screw. Through a 3rd more distal incision, using the targeting device, a distal interlocking screw was placed. The overall construct was assessed fluoroscopically on the AP and lateral views, and was noted to be satisfactory. The targeting device was removed. The wounds were irrigated with sterile antibiotic solution. The fascia was reapproximated with 0 Vicryl as was the deeper layers of the subcu. Skin edges were reapproximated with three 0 V lock and caesar. Sterile dressing was applied. The procedure was well tolerated. There were no known intraoperative complications. Patient is currently on antibiotics so no additional antibiotics were given. Estimated Blood Loss 20 Drains No Packing No Pathology None sent Complications No immediate complications Condition Stable Disposition PACU [facility] Billing Surgery - Charge Forward: Surgery Billing ([id number]; [id number])
[2023-10-21 15:14] LABS: Glucose Point of Care 118 mg/dl (65-105)
--- NOTE | 2023-10-21 15:19 | SUR.OPER ---
600mL of clear yellow urine drained from martinez catheter at the beginning of the case
[2023-10-21] MEDS: HYDROmorphone HCL INJ (*CRX) 1 MG/ML SYR 0.5 MG IV PUSH ×4 (15:30→15:57)
[2023-10-21] MEDS: SODIUM CHLORIDE 0.9% IV 1,000 ML 125 ML IV CONT (17:14)
[2023-10-21] MEDS: MORPHINE SULFATE (*CRX) 2 MG/ML INJ IV PUSH (17:14)
[2023-10-21] MEDS: SENNA/DOCUSATE SODIUM TABLET 2 TAB PO (17:20)
[2023-10-21] MEDS: DOXYCYCLINE HYCLATE 100 MG TABLET PO (20:13)
[2023-10-21] MEDS: HYDROcodone/acetaminophen (*CRX) 5-325 MG TABLET 2 TAB PO (20:38)
[2023-10-21 21:06] LABS: Glucose Point of Care 268 mg/dl (65-105)
[2023-10-22] VITALS (8 sets, daily range): BP systolic 118–157; BP diastolic 41–66; PULSE 60–94; RESP 16–22; TEMP 36.3–36.8; O2SAT 93–100
[2023-10-22] MEDS: MORPHINE SULFATE (*CRX) 2 MG/ML INJ IV PUSH (00:01)
[2023-10-22] MEDS: SODIUM CHLORIDE 0.9% IV 1,000 ML 125 ML IV CONT (01:34)
[2023-10-22 07:35] LABS: Basophils Percent Auto 0.3 % (0.2-1.2); Eosinophils Absolute Auto 0.1 K/mm3 (0-0.3); Eosinophils Percent Auto 0.4 % (0-4.4); Hemoglobin 8.2 g/dL (12.0-15.0); Immature Granulocyte Percent A 0.7 % (0-0.5); Lymphocytes Absolute Auto 2.39 K/mm3 (0.9-3.2); Lymphocytes Percent Auto 16.9 % (18.3-44.2); Mean Corpuscular HGB Conc 29.3 g/dl (32-36); Mean Corpuscular Hemoglobin 23.9 pg (26-34); Mean Corpuscular Volume 81.6 fl (80-100); Mean Platelet Volume 9.5 fl (7.4-10.4); Monocytes Absolute Auto 1.7 K/mm3 (0.1-0.6); Monocytes Percent Auto 11.8 % (2.6-8.5); Neutrophils Absolute Auto 9.9 K/mm3 (1.3-6.7); Neutrophils Percent Auto 69.9 % (45.5-73.1); Nucleated Red Blood Cells Perc 0.3 % (0.0-0.2); Platelet Count Result 428 k/mm3 (150-375); Red Blood Count 3.43 M/mm3 (4.2-5.4); Red Cell Distribution Width 15.3 % (11.5-14.5); White Blood Count 14.2 K/mm3 (4.5-10.0)
[2023-10-22 07:55] LABS: Anion Gap 10 mmol/L (8-16); Blood Urea Nitrogen 23 mg/dL (7-17); Calcium 8.7 mg/dL (8.4-10.2); Carbon Dioxide 26 mmol/L (22-30); Chloride 100 mmol/L (98-107); Estimated CRCL calculation 60 ml/min; Estimated Glomerular Filt Rate > 60; Glucose 168 mg/dL (65-110); Potassium 3.9 mmol/L (3.4-5.0); Sodium 136 mmol/L (137-145)
[2023-10-22 08:00] LABS: Glucose Point of Care 157 mg/dl (65-105)
[2023-10-22] MEDS: DOXYCYCLINE HYCLATE 100 MG TABLET PO ×2 (08:59→20:49)
[2023-10-22] MEDS: SENNA/DOCUSATE SODIUM TABLET 2 TAB PO ×2 (09:00→17:56)
[2023-10-22] MEDS: SPIRONOLACTONE 25 MG TABLET PO (09:00)
[2023-10-22] MEDS: methiMAzole 5 MG TAB PO (09:00)
[2023-10-22] MEDS: LOSARTAN POTASSIUM 50 MG TABLET PO (09:00)
[2023-10-22] MEDS: FUROSEMIDE 20 MG TABLET PO ×2 (09:00→17:56)
[2023-10-22] MEDS: EMPAGLIFLOZIN 25 MG TABLET BY MOUTH (09:00)
[2023-10-22] MEDS: METOPROLOL SUCCINATE EXT REL 50 MG TABCR PO ×2 (09:03→20:49)
[2023-10-22] MEDS: DIGOXIN TAB 125 MCG TABLET PO (09:03)
[2023-10-22] MEDS: polyethylene glycoL 3350 17 GM POWD.PACK PO (09:05)
--- NOTE | 2023-10-22 11:07 | PM.PNORT ---
Progress Note: A&P Assessment and Plan (1) Intertrochanteric fracture of left hip: Qualifiers: Encounter type: subsequent encounter Fracture type: closed Fracture alignment: displaced Fracture healing: with routine healing Qualified Code(s): S72.142D - Displaced intertrochanteric fracture of left femur, subsequent encounter for closed fracture with routine healing Code(s): S72.142A - Displaced intertrochanteric fracture of left femur, initial encounter for closed fracture Status: Acute Plan 68-year-old female postop day one ORIF left IT hip fracture. Surgery discussed with patient. Therapy will be started today. Will most likely need rehab placement. This was discussed with her but she is not thrilled about it. Plan on protected weight-bearing left lower extremity for a minimum of eight weeks. Once we to the eight week point if everything looks fine can go to weight-bearing as tolerated. 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 Xarelto restarted. Is anemic. No significant change from pre to postop. Following. Subjective Subjective Date/Time Seen: 10/22/23 11:07 Post Op day: 1 Principal diagnosis: Status post ORIF left IT hip fracture Interval history: 68-year-old female postop day one ORIF left IT hip fracture. Uneventful overnight. Resting reasonably comfortably. Does have some soreness in the left hip area. Exam Const: General: cooperative and no acute distress Resp: Effort & Inspection: normal respiratory effort GI: Inspection: non-distended Extrem: Other: Left hip wound is dry. Minimal swelling and no bruising noted left thigh. Motor and sensory function grossly intact but exam limited somewhat secondary to discomfort. Calves are negative. Palpable distal pulses. Radiology Reports: Comments: EXAMINATION: XR surgery orthopedic DATE: 10/21/2023 14:49 INDICATION: Left hip intertrochanteric nailing TECHNIQUE: 4 fluoroscopic images of the left hip and proximal femur were obtained during procedure performed by Dr. Hdez. Radiologist was not present for the imaging or procedure. The amount of fluoroscopy time used during this procedure was 0.9 minutes.? COMPARISON: None. FINDINGS: Interval old reduction internal fixation of the previously seen intertrochanteric fracture the proximal left femur with an antegrade intramedullary guido and dynamic femoral neck compression screw and distal interlocking screw fixation. Alignment appears near-anatomic. No other fractures identified. Mild osteoarthritis at the left hip. IMPRESSION: 1. Near-anatomic alignment post open reduction internal fixation of intratrochanteric fracture of the proximal left femur. Reviewed, dictated and finalized at location A. RITY SUPPORT ANALYST Objective Data Vital Signs Vital Signs: Vital Signs - 24 hr 10/21/23 12:00 10/21/23 13:30 10/21/23 15:06 Temperature 98.1 F 98.9 F 98.3 F Pulse Rate 83 80 95 Respiratory Rate 20 14 13 Blood Pressure 165/73 H 152/73 H 171/80 H Pulse Oximetry 98 100 97 Oxygen Delivery Room Air Simple Face Mask Oxygen Flow Rate 10 10/21/23 15:15 10/21/23 15:30 10/21/23 15:45 Temperature Pulse Rate 83 81 91 Respiratory Rate 14 15 14 Blood Pressure 168/86 H 162/73 H 156/74 H Pulse Oximetry 96 96 98 Oxygen Delivery Room Air Room Air Room Air Oxygen Flow Rate 10/21/23 16:00 10/21/23 16:15 10/21/23 16:30 Temperature Pulse Rate 89 93 90 Respiratory Rate 12 13 14 Blood Pressure 158/71 H 145/70 H 141/74 H Pulse Oximetry 94 97 95 Oxygen Delivery Room Air Room Air Room Air Oxygen Flow Rate 10/21/23 17:00 10/21/23 17:15 10/21/23 17:45 Temperature 97.7 F 98.1 F 97.8 F Pulse Rate 91 89 96 Respiratory Rate 20 18 18 Blood Pressure 145/65 H 178/80 H 199/92 H Pulse Oximetry 97 98 100 Oxygen Delivery Oxygen Flow Rate
[2023-10-22 11:33] LABS: Glucose Point of Care 275 mg/dl (65-105)
--- NOTE | 2023-10-22 14:56 | WPDANESPN ---
Anes - Prog Note Post-Op Date/Time: 10/22/23 14:56 Cardiovascular status: normal Respiratory status: normal Airway patency: baseline Mental status: baseline Post-Op hydration status: normal Vital Signs: Last Vital Signs Temp 97.8 F 10/22/23 11:45 Pulse 60 10/22/23 11:45 Resp 18 10/22/23 11:45 BP 118/41 L 10/22/23 11:45 Pulse Ox 98 10/22/23 11:45 O2 Del Method Room Air 10/22/23 08:27 O2 Flow Rate 10 10/21/23 15:06 Pain Score (VAS): 0/10 I/O: Intake & Output 10/21/23 10/22/23 10/22/23 23:59 07:59 15:59 Intake Total 920 1000 240 Output Total 1630 1450 Balance -710 -450 240 Laboratory Tests 10/22/23 06:38 10/22/23 06:38 10/21/23 10/21/23 10/22/23 15:08 20:12 06:38 WBC 14.2 H RBC 3.43 L Hgb 8.2 L Hct 28.0 L MCV 81.6 MCH 23.9 L MCHC 29.3 L RDW 15.3 H Plt Count 428 H MPV 9.5 Immature Gran % (Auto) 0.7 H Neut % (Auto) 69.9 Lymph % (Auto) 16.9 L [place] % (Auto) 11.8 H Eos % (Auto) 0.4 Baso % (Auto) 0.3 Lymph # (Auto) 2.39 [place] # (Auto) 1.7 H Eos # (Auto) 0.1 Baso # (Auto) 0.0 Abs Immat Gran (auto) 0.10 H Absolute Neuts (auto) 9.9 H Absolute Nucleated RBC 0.0 Nucleated RBC % 0.3 H Sodium 136 L Potassium 3.9 Chloride 100 Carbon Dioxide 26 Anion Gap 10 BUN 23 H Creatinine 0.70 Estim Creat Clear Calc 60 Estimated GFR > 60 Glucose 168 H POC Capillary Glucose 118 H 268 H Calcium 8.7 10/22/23 10/22/23 07:46 11:19 WBC RBC Hgb Hct MCV MCH MCHC RDW Plt Count MPV Immature Gran % (Auto) Neut % (Auto) Lymph % (Auto) [place] % (Auto) Eos % (Auto) Baso % (Auto) Lymph # (Auto) [place] # (Auto) Eos # (Auto) Baso # (Auto) Abs Immat Gran (auto) Absolute Neuts (auto) Absolute Nucleated RBC Nucleated RBC % Sodium Potassium Chloride Carbon Dioxide Anion Gap BUN Creatinine Estim Creat Clear Calc Estimated GFR Glucose POC Capillary Glucose 157 H 275 H Calcium Microbiology 10/16/23 18:03 Blood Blood Culture - Final 10/16/23 18:02 Blood Blood Culture - Final Post-procedural complaints: none Patient Feedback: Patient satisfied with anesthetic care.
--- NOTE | 2023-10-22 15:23 | PM.IMPN ---
Progress Note: A&P Assessment and Plan (1) Intertrochanteric fracture of left hip: Qualifiers: Encounter type: subsequent encounter Fracture type: closed Fracture alignment: displaced Fracture healing: with routine healing Qualified Code(s): S72.142D - Displaced intertrochanteric fracture of left femur, subsequent encounter for closed fracture with routine healing Code(s): S72.142A - Displaced intertrochanteric fracture of left femur, initial encounter for closed fracture Status: Acute Assessment and Plan: Patient with hip pain after a fall. Imaging shows IT fracture of the proximal left femur. Patient was cleared by Cardiology for procedure but was having fevers so surgery was held until 10/21. POD#1 from a ORIF left IT hip fracture with trochanteric nail device Appreciate orthopedic consultation PT/OT. Pain management per ortho. Xarelto resumed. (2) Pneumonia: Code(s): J18.9 - Pneumonia, unspecified organism Status: Acute Assessment and Plan: Chest x-ray shows mild pulmonary edema as well as airspace opacities in the right mid and lower lung zones. CT of the chest showing patchy consolidation probably ground-glass attenuation right middle lobe and inferior right upper lobe concern for PNA. Patient was asymptomatic but then developed fevers. WBC was 12.8K but climbed to 26.7K Serum bicarb 18 with AG 16. lactic 1.4 Rocephin and doxycycline started 10/16 BCx 10/16: NGTD WBC higher today related to the surgery then worsening condition. Fevers have resolved Continue current treatment plan (3) Paroxysmal atrial fibrillation: Code(s): I48.0 - Paroxysmal atrial fibrillation Status: Acute Assessment and Plan: Patient has a history of paroxysmal AFib related to thyrotoxicosis. EKG on admisison showing sinus mechanism. She is on metoprolol and Digoxin for rate control. Digoxin level <0.5. These have been continued. She was on Xarelto as well. Xarelto was on hold and Lovenox started for prophylaxis Xarelto resumed (4) Congestive heart failure: Code(s): I50.9 - Heart failure, unspecified Status: Acute Assessment and Plan: Patient with known systolic CHF with EF 15-20% last year. EKG showed sinus tachycardia (101), left axis deviation and anterior septal myocardial infarct age indeterminate. Echo here showing EF greater than 70% with grade 1 diastolic dysfunction. Cardiology consulted and has cleared the patient for surgery. Monitor fluid status closely. (5) Type 2 diabetes mellitus with hyperglycemia: Qualifiers: Diabetes mellitus snf insulin use: unspecified snf insulin use status Qualified Code(s): E11.65 - Type 2 diabetes mellitus with hyperglycemia Code(s): E11.65 - Type 2 diabetes mellitus with hyperglycemia Status: Acute Assessment and Plan: The patient's blood glucose was reviewed on 10/22 Glucose remains reasonably well controlled. Continue AccuCheks covering with sliding scale. Hypoglycemia protocol available as needed. Continue to follow Resume insulin (6) Hyperthyroidism: Code(s): E05.90 - Thyrotoxicosis, unspecified without thyrotoxic crisis or storm Status: Acute Assessment and Plan: TSH <0.015 but FT4 and TT3 normal. Continue methimazole. (7) Essential hypertension: Code(s): I10 - Essential (primary) hypertension Status: Acute Assessment and Plan: Patient's blood pressure was reviewed on 10/22 Blood pressure elevated felt related to pain. Will continue to follow for now (8) Anemia: Code(s): D64.9 - Anemia, unspecified Status: Acute Assessment and Plan: Hemoglobin 9 on admission and dropped to 8 range and stable. B12 and folate levels normal. Iron studies consistent with iron deficiency anemia. Stool guaiac ordered. Iron added. Monitor H& H. Transfuse to a stable hemoglobin. (9) Ataxia:
[2023-10-22 16:29] LABS: Glucose Point of Care 293 mg/dl (65-105)
[2023-10-22] MEDS: RIVAROXABAN 20 MG TABLET PO (17:56)
[2023-10-22] MEDS: INSULIN ASPART (*BKC) 100 UNITS/ML 7 UNITS SUB-Q (17:57)
[2023-10-22] MEDS: INSULIN ASPART (*BKC) 100 UNITS/ML SUB-Q (17:57)
[2023-10-22 20:32] LABS: Glucose Point of Care 163 mg/dl (65-105)
[2023-10-22] MEDS: HYDROcodone/acetaminophen (*CRX) 5-325 MG TABLET 1 TAB PO (20:48)
[2023-10-23 06:00] VITALS: BP 130/59; PULSE 97; RESP 16; TEMP 36.8; O2SAT 100
[2023-10-23] MEDS: HYDROcodone/acetaminophen (*CRX) 5-325 MG TABLET 1 TAB PO ×3 (07:05→17:05)
[2023-10-23 07:10] LABS: Basophils Absolute Auto 0.1 K/mm3 (0.0-0.1); Basophils Percent Auto 0.6 % (0.2-1.2); Eosinophils Absolute Auto 0.3 K/mm3 (0-0.3); Eosinophils Percent Auto 2.1 % (0-4.4); Hematocrit 27.4 % (37.0-47.0); Hemoglobin 8.1 g/dL (12.0-15.0); Immature Granulocyte Absolute 0.19 K/mm3 (0.00-0.031); Immature Granulocyte Percent A 1.3 % (0-0.5); Lymphocytes Absolute Auto 3.59 K/mm3 (0.9-3.2); Lymphocytes Percent Auto 24.6 % (18.3-44.2); Mean Corpuscular HGB Conc 29.6 g/dl (32-36); Mean Corpuscular Hemoglobin 23.9 pg (26-34); Mean Corpuscular Volume 80.8 fl (80-100); Mean Platelet Volume 9.4 fl (7.4-10.4); Monocytes Absolute Auto 1.7 K/mm3 (0.1-0.6); Monocytes Percent Auto 11.4 % (2.6-8.5); Neutrophils Absolute Auto 8.8 K/mm3 (1.3-6.7); Nucleated Red Blood Cells Absolute Auto 0.1 K/mm3 (0.0-0.012); Nucleated Red Blood Cells Perc 0.5 % (0.0-0.2); Platelet Count Result 485 k/mm3 (150-375); Red Blood Count 3.39 M/mm3 (4.2-5.4); Red Cell Distribution Width 15.5 % (11.5-14.5); White Blood Count 14.6 K/mm3 (4.5-10.0)
[2023-10-23 07:21] LABS: Anion Gap 9 mmol/L (8-16); Blood Urea Nitrogen 26 mg/dL (7-17); Calcium 9.1 mg/dL (8.4-10.2); Carbon Dioxide 26 mmol/L (22-30); Chloride 101 mmol/L (98-107); Estimated CRCL calculation 70 ml/min; Estimated Glomerular Filt Rate > 60; Glucose 185 mg/dL (65-110); Potassium 3.9 mmol/L (3.4-5.0); Sodium 136 mmol/L (137-145)
[2023-10-23 07:51] LABS: Glucose Point of Care 167 mg/dl (65-105)
--- NOTE | 2023-10-23 08:09 | PM.PNORT ---
Progress Note: A&P Assessment and Plan (1) Intertrochanteric fracture of left hip: Qualifiers: Encounter type: subsequent encounter Fracture type: closed Fracture alignment: displaced Fracture healing: with routine healing Qualified Code(s): S72.142D - Displaced intertrochanteric fracture of left femur, subsequent encounter for closed fracture with routine healing Code(s): S72.142A - Displaced intertrochanteric fracture of left femur, initial encounter for closed fracture Status: Acute Plan 68-year-old female postop day two ORIF left IT hip fracture. Doing well. Agree with the Mepilex dressing. This will need to be changed perhaps once a week and will allow her to use a shower chair. Slow progress. Awaiting placement. Continue therapy. Following. Subjective Subjective Date/Time Seen: 10/23/23 08:09 Post Op day: 2 Principal diagnosis: Status post ORIF left IT hip fracture Interval history: 68-year-old female postop day two ORIF left IT hip fracture. Was able to get to the chair yesterday. Had sold her dressing so now has a Mepilex one in place. Exam Const: General: cooperative, comfortable and no acute distress GI: Inspection: non-distended Extrem: Other: Very little swelling no bruising left hip and thigh area. Mepilex dressing dry. No drainage. Grossly motor and sensory function intact left lower extremity but exam is limited secondary to hip discomfort. Calves negative. Good distal pulses. Objective Data Vital Signs Vital Signs: Vital Signs - 24 hr 10/22/23 08:27 10/22/23 09:03 10/22/23 09:03 Temperature Pulse Rate 70 70 Respiratory Rate Blood Pressure Pulse Oximetry Oxygen Delivery Room Air 10/22/23 11:45 10/22/23 14:45 10/22/23 18:45 Temperature 97.8 F 98.1 F 98.1 F Pulse Rate 60 81 81 Respiratory Rate 18 16 16 Blood Pressure 118/41 L 142/58 H 142/58 H Pulse Oximetry 98 100 100 Oxygen Delivery 10/22/23 20:49 10/23/23 06:00 Temperature 98.3 F Pulse Rate 94 97 Respiratory Rate 16 Blood Pressure 130/59 L Pulse Oximetry 100 Oxygen Delivery Intake/Output Intake/Output: Intake & Output 10/20/23 10/21/23 10/22/23 10/23/23 23:59 23:59 23:59 23:59 Intake Total 1490 / 1490 1160 / 1160 2560 / 2560 Output Total 2175 / 2175 4155 / 4155 1450 / 1450 Balance -685 / -685 -2995 / -2995 1110 / 1110 Meds/Results Medications: Active Medications Generic Name Dose Route Start Last Admin Trade Name Freq PRN Reason Stop Dose Admin Acetaminophen 650 mg 10/21/23 17:00 Acetaminophen 325 Mg Tablet PO Q6H PRN Mild Pain (1-3) or Fever Hydrocodone Bitart/Acetaminophen 1 tab 10/21/23 17:00 10/23/23 07:05 Hydrocodone/Acetaminophen (*Crx) 5-325 Mg Tablet PO 1 tab Q3H PRN Administration Pain Rated 4-6 Hydrocodone Bitart/Acetaminophen 2 tab 10/21/23 17:00 10/21/23 20:38 Hydrocodone/Acetaminophen (*Crx) 5-325 Mg Tablet PO 2 tab Q6H PRN Administration Pain Rated 7-10 Dextrose 12.5 gm 10/18/23 12:09 Dextrose 50% 25 Gm/50 Ml Syringe IV PUSH PRN PRN Hypoglycemia Protocol Digoxin 125 mcg 10/16/23 09:00 10/22/23 09:03 Digoxin Tab 125 Mcg Tablet PO 125 mcg DAILY FERNANDA Administration Doxycycline Hyclate 100 mg 10/16/23 21:00 10/22/23 20:49 Doxycycline Hyclate 100 Mg Tablet PO 10/23/23 09:01 100 mg Q12HR FERNANDA Administration Empagliflozin 25 mg 10/16/23 09:00 10/22/23 09:00 Empagliflozin 25 Mg Tablet BY MOUTH 25 mg DAILY FERNANDA Administration Furosemide 20 mg 10/15/23 17:00 10/22/23 17:56 Furosemide 20 Mg Tablet PO 20 mg BID FERNANDA Administration Glucagon 1 mg 10/18/23 12:09 Glucagon For Inj 1 Mg Vial IM PRN PRN Hypoglycemia Protocol Glucose 15 gm 10/18/23 12:09 Glucose Oral Gel 15 Gm Of Glucse In 37.5 Gm Tube PO PRN PRN Hypoglycemia Protocol Ceftriaxone Sodium 1 gm in 50 mls @ 100 ml
[2023-10-23 08:28] LABS: Anisocytosis 1+ (NORMAL); Hypochromasia 1+ (NORMAL); Platelet Estimate Increased (Adequate); Schistocytes Rare (NORMAL)
[2023-10-23] MEDS: INSULIN ASPART (*BKC) 100 UNITS/ML 7 UNITS SUB-Q ×3 (09:05→16:53)
[2023-10-23 09:07] VITALS: PULSE 70
[2023-10-23] MEDS: DIGOXIN TAB 125 MCG TABLET PO (09:07)
[2023-10-23] MEDS: LOSARTAN POTASSIUM 50 MG TABLET PO (09:07)
[2023-10-23] MEDS: polyethylene glycoL 3350 17 GM POWD.PACK PO (09:07)
[2023-10-23] MEDS: EMPAGLIFLOZIN 25 MG TABLET BY MOUTH (09:07)
[2023-10-23] MEDS: SENNA/DOCUSATE SODIUM TABLET 2 TAB PO ×2 (09:07→16:53)
[2023-10-23] MEDS: METOPROLOL SUCCINATE EXT REL 50 MG TABCR PO ×2 (09:07→20:17)
[2023-10-23] MEDS: SPIRONOLACTONE 25 MG TABLET PO (09:07)
[2023-10-23] MEDS: methiMAzole 5 MG TAB PO (09:07)
[2023-10-23] MEDS: DOXYCYCLINE HYCLATE 100 MG TABLET PO (09:07)
[2023-10-23] MEDS: FUROSEMIDE 20 MG TABLET PO ×2 (09:16→16:53)
[2023-10-23] MEDS: INSULIN GLARGINE (*BKC) 100 UNITS/ML 7 UNITS SUB-Q (09:16)
[2023-10-23 11:17] LABS: Glucose Point of Care 240 mg/dl (65-105)
[2023-10-23] MEDS: INSULIN ASPART (*BKC) 100 UNITS/ML SUB-Q ×2 (11:35→16:53)
--- NOTE | 2023-10-23 15:47 | PM.IMPN ---
Progress Note: A&P Assessment and Plan (1) Intertrochanteric fracture of left hip: Qualifiers: Encounter type: subsequent encounter Fracture type: closed Fracture alignment: displaced Fracture healing: with routine healing Qualified Code(s): S72.142D - Displaced intertrochanteric fracture of left femur, subsequent encounter for closed fracture with routine healing Code(s): S72.142A - Displaced intertrochanteric fracture of left femur, initial encounter for closed fracture Status: Acute Assessment and Plan: Patient with hip pain after a fall. Imaging shows IT fracture of the proximal left femur. Patient was cleared by Cardiology for procedure but was having fevers so surgery was held until 10/21. POD#2 from a ORIF left IT hip fracture with trochanteric nail device Appreciate orthopedic consultation PT/OT. Pain management per ortho. Xarelto resumed. (2) Pneumonia: Code(s): J18.9 - Pneumonia, unspecified organism Status: Acute Assessment and Plan: Chest x-ray shows mild pulmonary edema as well as airspace opacities in the right mid and lower lung zones. CT of the chest showing patchy consolidation probably ground-glass attenuation right middle lobe and inferior right upper lobe concern for PNA. Patient was asymptomatic but then developed fevers. WBC was 12.8K but climbed to 26.7K Serum bicarb 18 with AG 16. lactic 1.4 Rocephin and doxycycline started 10/16, completed course of both BCx 10/16: NGTD WBC higher today related to the surgery then worsening condition. 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 EKG on admisison showing sinus mechanism. She is on metoprolol and Digoxin for rate control. Digoxin level <0.5. These have been continued. She was on Xarelto as well. Xarelto was on hold and Lovenox started for prophylaxis Xarelto resumed (4) Congestive heart failure: Code(s): I50.9 - Heart failure, unspecified Status: Acute Assessment and Plan: Patient with known systolic CHF with EF 15-20% last year. EKG showed sinus tachycardia (101), left axis deviation and anterior septal myocardial infarct age indeterminate. Echo here showing EF greater than 70% with grade 1 diastolic dysfunction. Cardiology consulted and has cleared the patient for surgery. Monitor fluid status closely. (5) Type 2 diabetes mellitus with hyperglycemia: Qualifiers: Diabetes mellitus medical terminologist insulin use: unspecified medical terminologist insulin use status Qualified Code(s): E11.65 - Type 2 diabetes mellitus with hyperglycemia Code(s): E11.65 - Type 2 diabetes mellitus with hyperglycemia Status: Acute Assessment and Plan: The patient's blood glucose was reviewed on 10/23 Glucose remains reasonably well controlled. Continue AccuCheks covering with sliding scale. Hypoglycemia protocol available as needed. Continue to follow Resume insulin (6) Hyperthyroidism: Code(s): E05.90 - Thyrotoxicosis, unspecified without thyrotoxic crisis or storm Status: Acute Assessment and Plan: TSH <0.015 but FT4 and TT3 normal. Continue methimazole. (7) Essential hypertension: Code(s): I10 - Essential (primary) hypertension Status: Acute Assessment and Plan: Patient's blood pressure was reviewed on 10/23 Blood pressure elevated felt related to pain. Will continue to follow for now (8) Anemia: Code(s): D64.9 - Anemia, unspecified Status: Acute Assessment and Plan: Hemoglobin 9 on admission and dropped to 8 range and stable. B12 and folate levels normal. Iron studies consistent with iron deficiency anemia. Stool guaiac ordered. Iron adde
[2023-10-23 16:28] LABS: Glucose Point of Care 201 mg/dl (65-105)
[2023-10-23] MEDS: RIVAROXABAN 20 MG TABLET PO (16:53)
[2023-10-23] MEDS: HYDROcodone/acetaminophen (*CRX) 5-325 MG TABLET 2 TAB PO (20:16)
[2023-10-23 20:17] VITALS: PULSE 85
[2023-10-23 20:31] VITALS: BP 156/74; PULSE 83; RESP 16; TEMP 36.4; O2SAT 100
[2023-10-23 21:19] LABS: Glucose Point of Care 173 mg/dl (65-105)
[2023-10-24 05:17] VITALS: BP 172/80; PULSE 87; RESP 16; TEMP 36.4; O2SAT 99
[2023-10-24 07:48] LABS: Basophils Absolute Auto 0.1 K/mm3 (0.0-0.1); Basophils Percent Auto 0.7 % (0.2-1.2); Eosinophils Absolute Auto 0.3 K/mm3 (0-0.3); Eosinophils Percent Auto 2.5 % (0-4.4); Hemoglobin 7.6 g/dL (12.0-15.0); Immature Granulocyte Absolute 0.24 K/mm3 (0.00-0.031); Immature Granulocyte Percent A 1.9 % (0-0.5); Lymphocytes Absolute Auto 3.23 K/mm3 (0.9-3.2); Lymphocytes Percent Auto 26.2 % (18.3-44.2); Mean Corpuscular HGB Conc 28.1 g/dl (32-36); Mean Corpuscular Hemoglobin 23.4 pg (26-34); Mean Corpuscular Volume 83.1 fl (80-100); Mean Platelet Volume 10.3 fl (7.4-10.4); Monocytes Absolute Auto 1.7 K/mm3 (0.1-0.6); Monocytes Percent Auto 13.7 % (2.6-8.5); Neutrophils Absolute Auto 6.8 K/mm3 (1.3-6.7); Nucleated Red Blood Cells Absolute Auto 0.1 K/mm3 (0.0-0.012); Nucleated Red Blood Cells Perc 0.6 % (0.0-0.2); Platelet Count Result 502 k/mm3 (150-375); Red Blood Count 3.25 M/mm3 (4.2-5.4); Red Cell Distribution Width 15.8 % (11.5-14.5); White Blood Count 12.3 K/mm3 (4.5-10.0)
[2023-10-24 07:58] LABS: Glucose Point of Care 180 mg/dl (65-105)
[2023-10-24] MEDS: INSULIN ASPART (*BKC) 100 UNITS/ML 7 UNITS SUB-Q ×3 (08:51→17:30)
[2023-10-24 08:52] VITALS: PULSE 87
[2023-10-24] MEDS: SENNA/DOCUSATE SODIUM TABLET 2 TAB PO (08:52)
[2023-10-24] MEDS: polyethylene glycoL 3350 17 GM POWD.PACK PO (08:52)
[2023-10-24] MEDS: FUROSEMIDE 20 MG TABLET PO ×2 (08:52→17:30)
[2023-10-24] MEDS: EMPAGLIFLOZIN 25 MG TABLET BY MOUTH (08:52)
[2023-10-24] MEDS: methiMAzole 5 MG TAB PO (08:52)
[2023-10-24] MEDS: DIGOXIN TAB 125 MCG TABLET PO (08:52)
[2023-10-24] MEDS: LOSARTAN POTASSIUM 50 MG TABLET PO (08:52)
[2023-10-24] MEDS: SPIRONOLACTONE 25 MG TABLET PO (08:53)
[2023-10-24] MEDS: HYDROcodone/acetaminophen (*CRX) 5-325 MG TABLET 1 TAB PO ×3 (09:01→17:30)
[2023-10-24 09:56] LABS: Platelet Estimate Increased (Adequate)
[2023-10-24 09:57] LABS: Anisocytosis 2+ (NORMAL); Schistocytes None Seen (NORMAL); Target Cells 1+ (NORMAL)
--- NOTE | 2023-10-24 11:27 | PM.PNORT ---
Progress Note: A&P Assessment and Plan (1) Intertrochanteric fracture of left hip: Qualifiers: Encounter type: subsequent encounter Fracture type: closed Fracture alignment: displaced Fracture healing: with routine healing Qualified Code(s): S72.142D - Displaced intertrochanteric fracture of left femur, subsequent encounter for closed fracture with routine healing Code(s): S72.142A - Displaced intertrochanteric fracture of left femur, initial encounter for closed fracture Status: Acute Assessment and Plan: 68-year-old female postop day three ORIF left IT hip fracture. Will need to comply with the protected weight-bearing status otherwise will have to be bed to chair for eight weeks at which time new x-ray could be obtained and if it looks like things are healing, activity can be advanced. He is going to need placement. Level of participation will likely dictate where she goes. Following. Subjective Subjective Date/Time Seen: 10/24/23 11:27 Post Op day: 3 Principal diagnosis: Status post ORIF left IT hip fracture Interval history: 68-year-old female postop day three status post trochanteric nail device placement for left IT hip fracture. Really not doing that much with therapy yet. Exam Const: General: cooperative and no acute distress GI: Inspection: non-distended Extrem: Other: Left hip wound dry. Very little swelling in really no bruising about the left hip and thigh. Neurovascular status grossly intact. Calves negative. Objective Data Vital Signs Vital Signs: Vital Signs - 24 hr 10/23/23 20:17 10/23/23 20:31 10/24/23 05:17 Temperature 97.6 F 97.6 F Pulse Rate 85 83 87 Respiratory Rate 16 16 Blood Pressure 156/74 H 172/80 H Pulse Oximetry 100 99 Oxygen Delivery 10/23/23 20:00 10/24/23 08:52 10/24/23 08:00 Temperature Pulse Rate 87 Respiratory Rate Blood Pressure Pulse Oximetry Oxygen Delivery Room Air Room Air Intake/Output Intake/Output: Intake & Output 10/21/23 10/22/23 10/23/23 10/24/23 23:59 23:59 23:59 23:59 Intake Total 1160 / 1160 2560 / 2560 1145 / 1145 480 / 480 Output Total 4155 / 4155 1450 / 1450 Balance -2995 / -2995 1110 / 1110 1145 / 1145 480 / 480 Meds/Results Medications: Active Medications Generic Name Dose Route Start Last Admin Trade Name Freq PRN Reason Stop Dose Admin Acetaminophen 650 mg 10/21/23 17:00 Acetaminophen 325 Mg Tablet PO Q6H PRN Mild Pain (1-3) or Fever Hydrocodone Bitart/Acetaminophen 1 tab 10/21/23 17:00 10/24/23 09:01 Hydrocodone/Acetaminophen (*Crx) 5-325 Mg Tablet PO 1 tab Q3H PRN Administration Pain Rated 4-6 Hydrocodone Bitart/Acetaminophen 2 tab 10/21/23 17:00 10/23/23 20:16 Hydrocodone/Acetaminophen (*Crx) 5-325 Mg Tablet PO 2 tab Q6H PRN Administration Pain Rated 7-10 Dextrose 12.5 gm 10/18/23 12:09 Dextrose 50% 25 Gm/50 Ml Syringe IV PUSH PRN PRN Hypoglycemia Protocol Digoxin 125 mcg 10/16/23 09:00 10/24/23 08:52 Digoxin Tab 125 Mcg Tablet PO 125 mcg DAILY FERNANDA Administration Empagliflozin 25 mg 10/16/23 09:00 10/24/23 08:52 Empagliflozin 25 Mg Tablet BY MOUTH 25 mg DAILY FERNANDA Administration Furosemide 20 mg 10/15/23 17:00 10/24/23 08:52 Furosemide 20 Mg Tablet PO 20 mg BID FERNANDA Administration Glucagon 1 mg 10/18/23 12:09 Glucagon For Inj 1 Mg Vial IM PRN PRN Hypoglycemia Protocol Glucose 15 gm 10/18/23 12:09 Glucose Oral Gel 15 Gm Of Glucse In 37.5 Gm Tube PO PRN PRN Hypoglycemia Protocol Dextrose 1,000 mls @ 100 mls/hr 10/18/23 12:09 Dextrose 5% 1,000 Ml IVPB PRN PRN Hypoglycemia Protocol Insulin Aspart 2 - 5 units 10/18/23 12:38 10/24/23 08:49 Insulin Aspart (*Bkc) 100 Units/Ml SUB-Q Not Given TIDWM FERNANDA Protocol Insulin Aspart 7 units 10/19/23 17:00 10/24/23 08:51 In
[2023-10-24 11:54] LABS: Glucose Point of Care 234 mg/dl (65-105)
[2023-10-24 12:14] VITALS: PULSE 87
[2023-10-24] MEDS: METOPROLOL SUCCINATE EXT REL 50 MG TABCR PO ×2 (12:14→20:01)
[2023-10-24] MEDS: INSULIN ASPART (*BKC) 100 UNITS/ML SUB-Q ×2 (12:15→17:31)
--- NOTE | 2023-10-24 12:45 | PM.DS ---
DS: Admitting Diagnosis Discharge Date 10/24/23 Admitting Diagnosis hip pain DS: Discharge Diagnosis Discharge Diagnosis (1) Intertrochanteric fracture of left hip: Qualifiers: Encounter type: subsequent encounter Fracture alignment: displaced Fracture healing: with routine healing Fracture type: closed Qualified Code(s): S72.142D - Displaced intertrochanteric fracture of left femur, subsequent encounter for closed fracture with routine healing Code(s): S72.142A - Displaced intertrochanteric fracture of left femur, initial encounter for closed fracture Status: Acute Assessment and Plan: Patient with hip pain after a fall. Imaging shows IT fracture of the proximal left femur. Patient was cleared by Cardiology for procedure but was having fevers so surgery was held until 10/21. POD#2 from a ORIF left IT hip fracture with trochanteric nail device Appreciate orthopedic consultation PT/OT. Pain management per ortho. Xarelto resumed. (2) Pneumonia: Code(s): J18.9 - Pneumonia, unspecified organism Status: Acute Assessment and Plan: Chest x-ray shows mild pulmonary edema as well as airspace opacities in the right mid and lower lung zones. CT of the chest showing patchy consolidation probably ground-glass attenuation right middle lobe and inferior right upper lobe concern for PNA. Patient was asymptomatic but then developed fevers. WBC was 12.8K but climbed to 26.7K Serum bicarb 18 with AG 16. lactic 1.4 Rocephin and doxycycline started 10/16, completed course of both BCx 10/16: NGTD WBC higher today related to the surgery then worsening condition. 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 EKG on admisison showing sinus mechanism. She is on metoprolol and Digoxin for rate control. Digoxin level <0.5. These have been continued. She was on Xarelto as well. Xarelto was on hold and Lovenox started for prophylaxis Xarelto resumed (4) Congestive heart failure: Code(s): I50.9 - Heart failure, unspecified Status: Acute Assessment and Plan: Patient with known systolic CHF with EF 15-20% last year. EKG showed sinus tachycardia (101), left axis deviation and anterior septal myocardial infarct age indeterminate. Echo here showing EF greater than 70% with grade 1 diastolic dysfunction. Cardiology consulted and has cleared the patient for surgery. Monitor fluid status closely. 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 Continue AccuCheks covering with sliding scale. Hypoglycemia protocol available as needed. Continue to follow Resume insulin (6) Hyperthyroidism: Code(s): E05.90 - Thyrotoxicosis, unspecified without thyrotoxic crisis or storm Status: Acute Assessment and Plan: TSH <0.015 but FT4 and TT3 normal. Continue methimazole. (7) Essential hypertension: Code(s): I10 - Essential (primary) hypertension Status: Acute Assessment and Plan: Patient's blood pressure was reviewed on 10/23 Blood pressure elevated felt related to pain. Will continue to follow for now (8) Anemia: Code(s): D64.9 - Anemia, unspecified Status: Acute Assessment and Plan: Hemoglobin 9 on admission and dropped to 8 range and stable. B12 and folate levels mai
[2023-10-24 14:00] VITALS: BP 146/70; RESP 16; TEMP 36.3; O2SAT 100
[2023-10-24 16:01] LABS: SARS-CoV-2 RNA PCR Negative (Negative)
[2023-10-24 16:33] LABS: Glucose Point of Care 236 mg/dl (65-105)
[2023-10-24] MEDS: RIVAROXABAN 20 MG TABLET PO (17:30)
[2023-10-24 20:00] VITALS: O2SAT 97
[2023-10-24 20:01] VITALS: PULSE 88
[2023-10-24 20:06] LABS: Glucose Point of Care 164 mg/dl (65-105)
== END 2023-10-24 20:09 | DRG 480 ==
LOC: ANHED 22:26 → ANH3MEDSUR 22:58
PROVIDERS: Internal Medicine; Orthopaedic Surgery; Admitting Provider Internal Medicine; Emergency Provider Student in an Organized Health Care Education/Training Program; PCP Nurse Practitioner Family; Visit Provider Student in an Organized Health Care Education/Training Program
PROC: (CPT 27245; principal; 2023-10-16 15:00)
PROC: 0QS734Z Reposition Left Upper Femur with Internal Fixation Device, Percutaneous Approach (ICD-10-PCS; CPT 27245; principal; 2023-10-21 13:00)
DX: S72.142A Displaced intertrochanteric fracture of left femur, initial encounter for closed fracture (principal); J18.9 Pneumonia, unspecified organism; I48.20 Chronic atrial fibrillation, unspecified; I50.32 Chronic diastolic (congestive) heart failure; I11.0 Hypertensive heart disease with heart failure; D64.9 Anemia, unspecified; E11.9 Type 2 diabetes mellitus without complications; E05.90 Thyrotoxicosis, unspecified without thyrotoxic crisis or storm; R50.9 Fever, unspecified; R27.0 Ataxia, unspecified; W19.XXXA Unspecified fall, initial encounter; Z20.822 Contact with and (suspected) exposure to COVID-19; Z23 Encounter for immunization; Z11.52 Encounter for screening for COVID-19; Z79.01 Long term (current) use of anticoagulants; Z79.4 Long term (current) use of insulin; S22.079D Unspecified fracture of T9-T10 vertebra, subsequent encounter for fracture with routine healing; S32.019D Unspecified fracture of first lumbar vertebra, subsequent encounter for fracture with routine healing; S32.029D Unspecified fracture of second lumbar vertebra, subsequent encounter for fracture with routine healing
CPT/HCPCS: 36415; 71045; 71250; 73502; 73552; 73560; 74019; 80048; 80053; 80061; 80069; 80162; 82607; 82728; 82746; 82948; 83036; 83540; 83550; 83605; 83735; 84439; 84443; 84480; 84484; 85025; 85610; 85730; 87040; 87081; 87635; 87636; 90471; 90694; 93005; 93306; 96374; 97110; 97161; 97166; 97530; 97535; 99199; 99285; A9270; C1713; G0008; J0696; J1100; J1170; J1650; J1815; J2270; J2405; J2704; J3010; J7030; J7120

== ENCOUNTER 2023-12-18 10:52 | Outpatient (CLI) | payer MEDICARE, SELFPAY ==
--- NOTE | ~2023-12-18 | US_ITS ---
EXAMINATION: US venous doppler [facility] DATE: 12/18/2023 11:35 INDICATION: Bilateral lower limb pain TECHNIQUE: Barksdale scale images without and with compression and Doppler images of the bilateral lower e xtremity veins were obtained. COMPARISON: 11/01/2022 FINDINGS: The right common femoral vein, profunda femoral vein, femoral vein, popliteal vein, posterior tibial veins, and greater saphenous vein are patent. The left common femoral vein, profunda femoral vein, femoral vein, popliteal vein, peroneal trunk, po sterior tibial veins, and greater saphenous vein are patent. IMPRESSION: 1. Patent bilateral lower extremity veins. No evidence of deep venous thrombosis. Reviewed, dictated and finalized at location B. CUTTER IMPRESSION: 1. Patent bilateral lower extremity veins. No evidence of deep venous thrombosi s.
== END 2023-12-18 10:53 | disposition home or self-care (01) ==
PROVIDERS: PCP Nurse Practitioner Family; Visit Provider Orthopaedic Surgery
DX: M79.89 Other specified soft tissue disorders (principal)
CPT/HCPCS: 93970

== ENCOUNTER 2024-02-25 16:59 | Emergency (ER) | payer MEDICARE, SELFPAY ==
[2024-02-25 17:08] VITALS: BP 184/79; PULSE 91; RESP 20; TEMP 36.7; O2SAT 100
--- NOTE | 2024-02-25 17:37 | ED.UPPEXIN ---
HPI - Extremity Injury (Upper) General Chief Complaint: Extremity Injury, Upper Stated Complaint: left upper arm red Time Seen by Provider: 02/25/24 17:37 Source: patient Mode of arrival: ambulatory Limitations: no limitations History of Present Illness HPI narrative: 69-year-old female presented for complaint of left bicep redness/bruising today. Denies any pain or decreased ROM to the arm. Reports she was lifting and moving boxes yesterday but denies known injury. Pt admits to taking bp on the left upper arm as well. On Xarelto. Related Data Home Medications Medication Instructions Recorded Confirmed dapagliflozin propanediol 10 mg 10 mg PO DAILY 10/15/23 02/25/24 tablet (Farxiga) digoxin 125 mcg (0.125 mg) tablet 0.125 mg PO DAILY 10/15/23 02/25/24 furosemide 20 mg tablet 20 mg PO BID 10/15/23 02/25/24 insulin glargine 100 unit/mL (3 7 unit subcut DAILY 10/15/23 02/25/24 mL) subcutaneous pen (Lantus Solostar U-100 Insulin) insulin lispro 100 unit/mL 10 unit subcut AC 10/15/23 02/25/24 subcutaneous pen losartan 50 mg tablet 50 mg PO DAILY 10/15/23 02/25/24 methimazole 5 mg tablet 5 mg PO DAILY 10/15/23 02/25/24 metoprolol succinate 50 mg 50 mg PO BID 10/15/23 02/25/24 tablet,extended release 24 hr rivaroxaban 20 mg tablet (Xarelto) 20 mg PO DAILY 10/15/23 02/25/24 spironolactone 25 mg tablet 25 mg PO DAILY 10/15/23 02/25/24 Allergies Allergy/AdvReac Type Severity Reaction Status Date / Time estrogens, conjugated Allergy Unknown Other Verified 02/25/24 17:07 Review of Systems Review of Systems: CONSTITUTIONAL: Denies body aches, fever, chills CARDIOVASCULAR: Denies chest pain, palpitations, or edema. RESPIRATORY: Denies cough or dyspnea. SKIN: Reports LUE bruising Denies rash, itching, or wounds. MUSCULOSKELETAL: Denies back pain, joint pain, or myalgia. NEUROLOGIC: Denies headache, numbness, tingling, or weakness. All systems reviewed & are unremarkable except as noted in HPI and below PMFSH Past Medical History Medical History Essential hypertension Hyperthyroidism Type 2 diabetes mellitus with hyperglycemia Surgical History Surgical History History of dental surgery History of laparoscopy History of tonsillectomy Intertrochanteric fracture of left hip ORIF with trochanteric nail device October 21, 2023 Family History Family History Father Hypertension Family history of malignant neoplasm Mother Hypertension Cerebrovascular accident Grandparent Family history of cardiovascular disease Other Family history of atrial fibrillation Family history of thyroid disease Social History Social History Social History: The patient lives with her and they have one child. 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 She is a lifelong nonsmoker. She denies any alcohol marijuana or illicit drugs. Her is a durable power insurance attorney for healthcare. Code status full code Smoking status: Never smoker Second hand tobacco smoke exposure: No Alcohol intake: never Substance use: never Substance use type: does not use Do You Feel Safe in your Home?: Yes Lack of Transportation: No Lack of Food: Never True Current Housing: I Have Housing Concerned About Future Housing: No Difficulty Paying Gas/Electric Bills: No Difficulty Paying for Meds: No Currently Unemployed: No Education: Bachelor's Degree Difficulty w/ Childcare or Family Care: No Living arrangements: with family Occupation/Education: retired Spiritual care concerns: No Comments At time of signature, I have reviewed and agree with nursing past medical, surgical, social and family history unless otherwise noted. Please see nursing chart for further information. There is no relev
== END 2024-02-25 17:50 | disposition home or self-care (01) ==
PROVIDERS: Emergency Provider Nurse Practitioner Family; PCP Nurse Practitioner Family
DX: R58 Hemorrhage, not elsewhere classified (principal); I10 Essential (primary) hypertension; E05.90 Thyrotoxicosis, unspecified without thyrotoxic crisis or storm; E11.9 Type 2 diabetes mellitus without complications; Z79.4 Long term (current) use of insulin; Z79.01 Long term (current) use of anticoagulants
CPT/HCPCS: 99212; G0463